=== PATIENT | male | born 1990 | race Caucasian/White ===

== ENCOUNTER 2024-06-14 08:59 | Emergency (ER) | payer OTHER, SELFPAY ==
--- NOTE | ~2024-06-14 | US_ITS ---
Duplex Sonography of the right extremity: Indication: Pain Findings: Sagittal and transverse B-mode images as well as color-flow imaging were performed on the r ight femoral and popliteal veins. B-mode examination was done without and with compression in the tr ansverse plane. There is good visualization of the common femoral, proximal profunda femoral, superf icial femoral, greater saphenous, and popliteal veins. Normal flow was seen on color-flow imaging. N ormal compressibility was demonstrated. Visualized calf veins are also patent. Impression: No evidence of deep vein thrombosis involving the right lower extremity. Reviewed, dictated and finalized at location M. IC TREATER Impression: No evidence of deep vein thrombosis involving the right lower extremity.
[2024-06-14 09:17] VITALS: BP 140/100; PULSE 82; RESP 20; TEMP 36.6; O2SAT 98
--- NOTE | 2024-06-14 10:32 | ED_ITS ---
HPI - General Adult General Chief complaint: Extremity Problem,Nontraumatic Stated complaint: thigh pain Time Seen by Provider: 06/14/24 09:19 History of Present Illness HPI narrative: patient 34-year-old gentleman who presents emergency department with chief complaint of right thigh pain. Patient reports that he has had no trauma reports no fever denies shortness of breath denies chest pain patient states that his father's had DVTs before the past and he is concerned that he may have a DVT Related Data Allergies Allergy/AdvReac Type Severity Reaction Status Date / Time No Known Drug Allergies Allergy Unknown Verified 06/14/24 09:24 Review of Systems Review of Systems: A 10 system review of systems was completed on the patient and is negative except for what is stated in the HPI. Nursing and ancillary documentation was reviewed. Exam Narrative: GENERAL: Well-appearing, well-nourished, and in no acute distress. HEAD: Normocephalic, atraumatic. EYES: PERRLA and EOMI. ENT: Nares clear, no rhinorrhea or epistaxis. Mucous membranes moist. NECK: Supple. CHEST: Clear to auscultation. No respiratory distress. HEART: Regular rate and rhythm. No murmur heard. Normal peripheral pulses. ABDOMEN: Soft, nontender, nondistended, normal active bowel sounds. EXTREMITIES: Normal range of motion. No edema. SKIN: Warm, dry, no rash. NEURO: No focal deficits. Alert and oriented x3. PSYCH: Normal mood and affect. Course Vital Signs Vital signs: Vital Signs Temperature 36.6 C 06/14/24 09:17 Pulse Rate 82 06/14/24 09:17 Respiratory Rate 20 06/14/24 09:17 Blood Pressure 140/100 H 06/14/24 09:17 Pulse Oximetry 98 06/14/24 09:17 Oxygen Delivery Room Air 06/14/24 09:17 Temperature 36.6 C 06/14/24 09:17 Pulse Rate 82 06/14/24 09:17 Respiratory Rate 20 06/14/24 09:17 Blood Pressure 140/100 H 06/14/24 09:17 Pulse Oximetry 98 06/14/24 09:17 Oxygen Delivery Room Air 06/14/24 09:17 Medical Decision Making [facility] Narrative Medical decision making narrative: differential diagnosis includes DVT, musculoskeletal pain ultrasound was obtained of the right lower extremity that showed no evidence of DVT Vital Signs Vital Signs: Vital Signs Temperature 36.6 C 06/14/24 09:17 Pulse Rate 82 06/14/24 09:17 Respiratory Rate 20 06/14/24 09:17 Blood Pressure 140/100 H 06/14/24 09:17 Pulse Oximetry 98 06/14/24 09:17 Oxygen Delivery Room Air 06/14/24 09:17 Temperature 36.6 C 06/14/24 09:17 Pulse Rate 82 06/14/24 09:17 Respiratory Rate 20 06/14/24 09:17 Blood Pressure 140/100 H 06/14/24 09:17 Pulse Oximetry 98 06/14/24 09:17 Oxygen Delivery Room Air 06/14/24 09:17 Discharge Plan Discharge Clinical Impression: Leg pain, right Patient Disposition: Home, Self-Care Condition: Stable Instructions: Antibiotic Form, Leg Pain (ED) Patient Language: Swedish Follow-up/Referrals: PHYSICIAN NOT ON STAFF,NONSTAFF [Primary Care Provider] - Time of Disposition: 10:33
[2024-06-14 10:45] VITALS: BP 145/87; PULSE 89; RESP 20; TEMP 36.7; O2SAT 99
--- OUTSIDE RECORDS SUMMARY | 2024-06-18 19:08 | XMS_ITS | Encounter Summary ---
Author Organization [facility] Address [facility]ly [facility] [place], [place] [address] [place] [address] Care Team Providers Care Rides Attendant Name Role Phone Jeet Hanley MD Primary Care Provider [phone] Encounter Details Date Type Department Care Team (Late st Contact Info) Description 09/12/2006 Emergency [facility] [place] [address] MD [address] [place] [address] [place] [address] Social History Tobacco Use Types Packs/Day Years Used Date Smoking Tobacco: Never Assessed Sex and Gender Information Value Date Recorded Sex Assigned at Not on file Legal Sex Male 8:34 PM CDT Gender Identity Not on file Sexual Orientation Not on file documented as of this encounter Plan of Treatment Not on file documented as of this encounter Visit Diagnoses Not on filedocumented in this encounter Care Teams Rides Attendant Relationship Specialty Start Date End Date Jeet Hanley MD [address] [facility] [address] [place] [id number] PCP - General 01/12/13 documented as of this encounter
--- OUTSIDE RECORDS SUMMARY | 2024-06-18 19:08 | XMS_ITS | Encounter Summary ---
Author Organization [facility] Address [address] [place] [address]. [place], [place] [address] [place] [address] Care Team Providers Care Mercerizing Range Feeder Name Role Phone Jeet Hanley MD Primary Care Provider [phone] Encounter Details Date Type Department Care Team (Late st Contact Info) Description 01/12/2013 Emergency [facility] [place] [address] Toñito Cedillo MD Social History Tobacco Use Types Packs/Day Years Used Date Smoking Tobacco: Never Assessed Sex and Gender Information Value Date Recorded Sex Assigned at Not on file Legal Sex Male 8:34 PM CDT Gender Identity Not on file Sexual Orientation Not on file documented as of this encounter Plan of Treatment Not on file documented as of this encounter Visit Diagnoses Diagnosis Open wound of forehead Open wound of forehead, without mention of complication documented in this encounter Care Teams Mercerizing Range Feeder Relationship Specialty Start Date End Date Jeet Hanley MD [address] [facility] [address] [place] [address] PCP - General 01/12/13 documented as of this encounter
--- OUTSIDE RECORDS SUMMARY | 2024-06-18 19:08 | XMS_ITS | Encounter Summary ---
Author Organization [facility] Address [address] [place] [address]. [place], [place] [id number] [place] [address] Care Team Providers Care Vice President Quality Improvement Name Role Phone Jeet Hanley MD Primary Care Provider [phone] Encounter Details Date Type Department Care Team (Late st Contact Info) Description 02/08/1991 Abstract [place] [address] , Generic ConversionMD Social History Tobacco Use Types Packs/Day Years [...] on filedocumented in this encounter Care Teams Vice President Quality Improvement Relationship Specialty Start Date End Date Jeet Hanley MD [address] [place] [address] PCP - General 01/12/13 documented as of this encounter
--- OUTSIDE RECORDS SUMMARY | 2024-06-18 19:08 | XMS_ITS | Clinical Summary ---
Author Organization [facility] Address [address] [place] [address]. [place] [address] Care Team Providers Care Service Technician Copier Name Role Phone Jeet Hanley MD Primary Care Provider [phone] Social History Tobacco Use Types Packs/Day Years Used Date Smoking Tobacco: Never Assessed Sex and Gender Information Value Date Recorded Sex Assigned at Not on file Legal Sex Male 8:34 PM CDT Gender Identity Not on file Sexual Orientation Not on file Plan of Treatment Health Maintenance Due Date Last Done Comments Annual Physical 02/20/1991 Hepatitis C 02/20/2006 DTaP, Tdap and Td Vaccines ( 1 - Tdap) 02/20/2007 Hepatitis B Vaccines (1 of 3 - 19+ 3-dose series) 02/20/2007 COVID-19 Vaccine (2023-2 5 season) 2024 Influenza Adult (#1) 2024 HPV Vaccines Aged Out No longer eligi ble based on patient's age to complete this topic Meningococcal Vaccine Aged Out No ericka adilene eligible based on patient's age to complete this topic Pneumococcal Vaccine: Pediat rics (0 to 5 Years) and At-Risk Patients (6 to 64 Years) Aged Out No longer eligible b ased on patient's age to complete this topic RSV Immunizations Under 20 Months Aged Out No longer eligible based on patient's age to complete this topic Care Teams Service Technician Copier Relationship Specialty Start Date End Date Jeet Hanley MD [address] [facility] [address] [place] [address] PCP - General 01/12/13
--- OUTSIDE RECORDS SUMMARY | 2024-06-18 19:08 | XMS_ITS | Encounter Summary ---
Author Organization [facility] Address [address] [place] [address]. [place] [address] Care Team Providers Care Embossing Unit Operator Name Role Phone Jeet Hanley MD Primary Care Provider [phone] Encounter Details Date Type Department Care Team (Latest Contact Info) Description 08/11/2019 Scan HEALTH INFO [facility] Scanned, Documents Social History Tobacco Use Types Packs/Day Years [...] on filedocumented in this encounter Care Teams Embossing Unit Operator Relationship Specialty Start Date End Date Jeet Hanley MD [address] [facility] [address] [place] [address] PCP - General 01/12/13 documented as of this encounter
--- OUTSIDE RECORDS SUMMARY | 2024-06-18 19:09 | XMS_ITS | Clinical Summary ---
Author Organization [facility] Address [address] [place] [address] Care Team Providers Care Aircraft Loadmaster Superintendent Name Role Phone Dorothea Cisneros Primary Care Provider + Allergies No known active allergies Medications omeprazole (PriLOSEC) 20 mg capsule Take 1 capsule (20 mg total) by mouth daily Active FLUoxetine (PROzac) 40 mg capsuleIndicati ons:Anxiety Take 1 capsule (40 mg total) by mouth daily 30 capsule 0 Active Additional Information Patient taking differently:40 mg oral Daily,2 capsules daily, Reported on 01/08/2023 propranoloL (INDERAL) 20 mg tablet Take 1 tablet (20 mg total) by mouth 2 (two) times a day 1 Active clonazePAM (KlonoPIN) 0.5 mg tablet TAKE 1/2 TABLET BY MOUTH ONCE A DAY NEEDED 1 Active prazosin (MINIPRESS) 2 mg capsule TAKE 3 CAPSULES BY MOUTH AT BEDTIME AND 1 CAPSULE EVERY MORNING 2 Active montelukast (SINGULAIR) 4 mg chewable tablet 1 tablet Orally Once a day AM Active busPIRone (BUSPAR) 30 mg tablet 1/2 in the morning, 1 tab in the afternoon, 1/2 at night 3 Active lamoTRIgine (LaMICtal) 200 mg tablet Take 1 tablet (200 mg total) by mouth daily 4 Active Active Problems Problem Noted Date Diagnosed Date Nasal lesion 02/12/2023 JULIA (obstructive sleep apnea) 10/24/2021 Assessment & Plan (01/24/2023 1:44 PM CDT): I have encouraged the patient to use his CPAP. I have given the patient a sample mask of the ResMed med in 20 nasal mask to try. The patient will call back in if he has any difficulties. Assessment & Plan (02/08/2022 2:17 PM CDT): Did inform the patient that if he has any difficulty adjusting to his CPAP to contact the office. Patient's DME is going to be [facility]. His CPAP will be set at a range of 5-20 cm water pressure. Assessment & Plan (10/24/2021 11:59 AM CDT): The patient returns with snoring, gasping episodes and excessive daytime hypersomnia. I will reorder the home sleep test to confirm the diagnosis and then order a CPAP unit for him. He will follow-up with me in 3 months. Alcohol dependence 07/23/2019 Essential hypertension 07/23/2019 Exercise-induced tachycardia 06/18/2019 Single episode of elevated blood pressure 2018 Anxiety 06/18/2019 Assessment & Plan (07/23/2019 12:28 PM EXTENSION SERVICE SUPERVISOR): Pt appears more calm than I've ever seen him. Apologetic for refraining to acknowledge his drinking issue. I increased his Buspar. He will stay on librium. No clonazepam unless he has a serious attack of anxiety. Continue counseling. I suggested he seek a 12 step program and he's open to this. No suicidal plans. Resolved Problems Problem Noted Date Diagnosed Date Resolved Date Congestion of paranasal sinus 07/23/2019 05/09/2021 Immunizations Name Administration Dates Next Due Influenza, Unspecified 03/31/2023(Deferr ed: Patient decision),03/31/2022,05/09/2021(Deferre d: Patient Refused),04/19/2020(Deferred: Patient Refused),06/19/2019(Deferred: Patient Refused) Pfizer SARS-CoV-2 Monovalent Vaccination (12+ Yrs) PURPLE 09/28/2020,09/07/2020 Surgical History Surgery Date Site/Laterality Comments NO PAST SURGERIES Medical History Medical History Date Comments GERD (gastroesophageal reflux disease) Anxiety Alcohol abuse 2009 Depression 2004 Hypertension 2019 Seizures (HCC) 2012 Sleep apnea Likely Substance abuse (CMS/HCC) (HCC) 2009 Peptic ulceration 2004 Dental disease Family History Medical History Relation Name Comments Diabetes Father Henry Hypertension Father Henry Allergies Mother Lupe Allergy (severe) Mother Lupe Depression Mother Lupe Hypertension Mother Lupe Anxiety disorder Sister 1 Depression Sister 2 Yumiko Relation Name Status Comments Brother Alive Father Henry Alive Mother Lupe Alive Sister 1 Alive Sister 2 Yumiko Social History Tobacco Use Types Packs/Day Years Used Date Smoking Tobacco: Every Day Cigarettes 0.5 15 Cigarillos Smokeless Tobacco: Never Tobacco Cessation:Ready to Q uit: Not Asked; Counseling Given: Not Answered Alcohol Use Standard Drinks/Week Comments Not Currently 2 (1 standard drink = 0.6 oz pur e alcohol) AUDIT-C Answer Date Recorded Q1: How often do you have a drink containing alc ohol? 2-3 times a week 05/09/2021 Q2: How many drinks containi ng alcohol do you have on a typical day when you are drinking? 3 or 4 05/09/2021 Q3: How often do you have si x or more drinks on one occasion? Never 05/09/2021 PHQ-2 Answer Date Recorded PHQ-2 Total Score (If total score is 3 or more points, staff should administer the PHQ-9) 6 11/15/2023 Personal Safety Answer Date Recorded Getting School Help Needed Not on file 08/31 Sex and Gender Information Value Date Recorded Sex Assigned at Not on file Legal Sex Male 6:48 PM EXTENSION SERVICE SUPERVISOR Gender Identity Male 07/21/2019 1:21 AM EXTENSION SERVICE SUPERVISOR Sexual Orientation Meléndez 07/21/2019 1: 21 AM EXTENSION SERVICE SUPERVISOR Obstetrics History Last Filed Vital Signs Vital Sign Reading Time Taken Comments Blood Pressure 136/84 11/15/2023 10:44 AM CDT Pulse 81 11/15/2023 10:44 AM CDT Temperature 36.5 ??C (97.7 ??F) 11/15/2023 1 0:44 AM CDT Respiratory Rate 18 11/15/2023 10:4 4 AM CDT Oxygen Saturation 97% 11/15/2023 10: 44 AM CDT Inhaled Oxygen Concentration - - Weight 124.9 kg (275 lb 6.4 oz) 024 10:44 AM CDT Height 165.1 cm (5' 5 ) 11/15/2023 10:4 4 AM CDT Body Mass Index 45.83 11/15/2023 10:44 AM CDT Plan of Treatment Health Maintenance Due Date Last Done Comments Hepatitis C Screening 1988 Pneumococcal vaccine <65 (1 of 2 - PCV) 02/20/1994 DTaP/Tdap/Td Vaccine (1 - Tdap) 02/20/1999 Varicella Vaccines (1 of 2 - 13+ 2-dose series) 02/20/2001 Hepatitis B Screening 02/20/2006 Regular Well Visit/Exam 18-64 02/20/2006 Covid-19 Vaccine (2023- season) 2024 09/28/2020, 09/07/2020 Influenza Vaccine (#1) 2024 03/31/2022 Depression Screening 11/14/2024 11/15/2023, 11/15/2023, 01/08/2023, Additional history exists HPV Vaccines Aged Out No longer eligi ble based on patient's age to complete this topic Insurance [facility] Care Teams Aircraft Loadmaster Superintendent Relationship Specialty Start Date End Date Dorothea Cisneros PA [address] [place] [address] PCP - General 08/11/19
--- OUTSIDE RECORDS SUMMARY | 2024-06-18 19:09 | XMS_ITS | Encounter Summary ---
Author Organization [facility] Healthcare Address [address] [place] [address] Care Team Providers Care Systems Applications Programming Lead Name Role Phone Dorothea Cisneros Primary Care Provider + Reason for Visit * Reason Comments Leg Pain Had head and neck pa in a week ago, now having bilateral leg numbness Encounter Details Date Type Department Care Team (Late st Contact Info) Description 11/15/2023 10:45 AM CDT Office Visit [facility] Family Medicine [address] [phone] Dorothea Cisneros PA [address] [place] [phone] Numbness and tingling of both feet (Primary Dx); Morbid obesity with BMI of 45.0-49.9, adult (HCC); Family history of diabetes mellitus in father Social History Tobacco Use Types Packs/Day Years [...] on file Legal Sex Male 6:48 PM NEWSCAST DIRECTOR Gender Identity Male 07/21/2019 1:21 AM NEWSCAST DIRECTOR Sexual Orientation Meléndez 07/21/2019 1: 21 AM NEWSCAST DIRECTOR documented as of this encounter Last Filed Vital Signs Vital Sign Reading [...] Mass Index 45.83 11/15/2023 10:44 AM CDT documented in this encounter Progress Notes * Dorothea Cisneros PA - 11/15/2023 10:45 AM CDT Images from the original note were not included. Subjective/Objective Visit date: 11/15/2023 Patient ID: [id number] Osborne is a 33 y.o. male. Chief Complaint Chief Complaint Patient presents with Leg Pain Had head and neck pain a week ago, now having bilateral leg numbness Current Outpatient Medications: busPIRone (BUSPAR) 30 mg tablet, 1/2 in the morning, 1 tab in the afternoon, 1/2 at night, Disp: , Rfl: clonazePAM (KlonoPIN) 0.5 mg tablet, TAKE 1/2 TABLET BY MOUTH ONCE A DAY NEEDED, Disp: , Rfl: FLUoxetine (PROzac) 40 mg capsule, Take 1 capsule (40 mg total) by mouth daily (Patient taking differently: Take 1 capsule (40 mg total) by mouth daily 2 capsules daily), Disp: 30 capsule, Rfl: 0 lamoTRIgine (LaMICtal) 200 mg tablet, Take 1 tablet (200 mg total) by mouth daily, Disp: , Rfl: montelukast (SINGULAIR) 4 mg chewable tablet, 1 tablet Orally Once a day AM, Disp: , Rfl: omeprazole (PriLOSEC) 20 mg capsule, Take 1 capsule (20 mg total) by mouth daily, Disp: , Rfl: prazosin (MINIPRESS) 2 mg capsule, TAKE 3 CAPSULES BY MOUTH AT BEDTIME AND 1 CAPSULE EVERY MORNING,Disp: , Rfl: propranoloL (INDERAL) 20 mg tablet, Take 1 tablet (20 mg total) by mouth 2 (two) times a day, Disp:, Rfl: No Known Allergies HPI Not employed for several years and applying for disability. Sees psychiatrist and a counselor. 2 weeks h/o with one day of a [place] followed by neck pain not out of the ordinary for me . Uses creams on it which usually helps. Didn't really loosen up until he could barely turn his neck, followed by ST and went to who wanted him to go to ER and get labs, worried about meningitis. He went home and the next day felt better and gradually this resolved but legs are falling asleep , worse on the left foot, RT thigh and RT foot. Right now they only feel a little numb . Neck ROM is normal now. No issues with walking. No UE numbness, tingling. [place]STON has resolved. He feels like his anxiety is mainly under control. Takes potassium, MG and fish oil. Has chronic fatigue. No tongue pain, lip tingling. No SOB. No legweakness noted. Drinks ETOH daily, beers 3 daily. Unable to tolerate CPAP b/c it triggers his anxiety. PHQ Screening Over the last 2 weeks, how often have you been bothered by any of the following problems? Little Interest or Pleasure in Doing Things: Nearly every day Feeling Down, Depressed, or Hopeless: Nearly every day PHQ-2 Total Score (If total score is 3 or more points, staff should administer the PHQ-9): 6 Over the past 2 weeks, how often have you been bothered by any of the following problems? Little Interest or Pleasure in Doing Things: Nearly every day Feeling Down, Depressed, or Hopeless: Nearly every day PHQ-2 Total Score (If total score is 3 or more points, staff should administer the PHQ-9): 6 Trouble Falling or Staying Asleep, or Sleeping too Much: Nearly every day Feeling Tired or Having Little Energy: Nearly every day Poor Appetite or Overeating: Nearly every day Feeling Bad About Yourself - or That You are a Failure or Have Let Yourself or Your Family Down: Nearly every day Trouble Concentrating on Things, Such as Reading the Newspaper or Watching Television: Nearly everyday Moving or Speaking so Slowly That Other People Could Have Noticed, or the Opposite - Being so Fidgety or Restless That You Have Been Moving Around a lot More Than Usual: Not at all Thoughts That You Would be Better off , or of Hurting Yourself in Some Way: Not at all PHQ-9 Total Score: 21 Review of Systems Constitutional: Positive for fatigue (chronic). Negative for fever. HENT: Positive for sore throat (now resolved). Negative for mouth sores. Respiratory: Negative for shortness of breath. Cardiovascular: Negative for leg swelling. Musculoskeletal: Positive for neck pain (seeHPI, now resolved). Skin: Negative for rash. Neurological: Positive for numbness (see HPI) and headaches (see HPI, now resolved). Negative for weakness. Psychiatric/Behavioral: Positive for sleep disturbance (unable to tolerate CPAP). The patient is nervous/anxious (managed by psych, has agoraphobia, unable to work, drive). Vitals BP 136/84 (BP Location: Right arm, Patient Position: Sitting) Pulse 81 Temp 36.5 ??C (97.7 ??F) (Temporal) Resp 18 Ht 165.1 cm (5' 5 ) Wt 124.9 kg (275 lb 6.4 oz) SpO2 97% BMI 45.83 kg/m?? Lab Results Component Value Date HGBA1C 5.4 11/15/2023 Physical Exam Constitutional: Appearance: Normal appearance. He is morbidly obese. HENT: Head: Normocephalic and atraumatic. Eyes: Conjunctiva/sclera: Conjunctivae normal. Cardiovascular: Rate and Rhythm: Normal rate and regular rhythm. Pulses: Normal pulses. Heart sounds: Normal heart sounds. Pulmonary: Effort: Pulmonary effort is normal. Breath sounds: Normal breath sounds. Musculoskeletal: Cervical back: Normal range of motion. Right lower leg: No edema. Left lower leg: No edema. Lymphadenopathy: Cervical: No cervical adenopathy. Skin: Findings: No rash. Neurological: Mental Status: He is alert and oriented to person, place, and time. Motor: No weakness. Gait: Gait normal. Deep Tendon Reflexes: Reflexes normal. Psychiatric: Mood and Affect: Mood normal. Behavior: Behavior normal. Diagnoses and all orders for this visit: Numbness and tingling of both feet (Primary) Comments: A1C normal. pt unable to tolerate phlebotomy due to syncope and seizures . start B12, back off on ETOH intake, get more exercise, monitor Morbid obesity with BMI of 45.0-49.9, adult (HCC) Comments: pt would benefit from healthy diet, routine exercise. he has trouble leaving his house due to agoraphobia Family history of diabetes mellitus in father Comments: normal A1C, unlikely to be factor in paresthesias Orders: - POCT hemoglobin A1c Return if symptoms worsen or fail to improve. TESFAYE VillatoroC documented in this encounter Plan of Treatment Not on file documented as of this encounter Procedures Procedure Name Priority Date/Time Associated Diagnosis Comments POCT HEMOGLOBIN A1C Routine 11/15/2023 1 1:13 AM CDT Family history of diabetes mellitus in father documented in this encounter Results * POCT hemoglobin A1c (11/15/2023 11:13 AM CDT) Hemoglobin A1C, POC 5.4 % Blood 11/15/2023 11:1 3 AM CDT Dorothea Manzo POINT OF CARE TEST ORDER STANLEY Final Result documented in this encounter Visit Diagnoses Diagnosis Numbness and tingling of both feet- Primary Morbid obesity with BMI of 45.0-49.9, adult (HCC) Family history of diabetes mellitus in father documented in this encounter Discontinued Medications Medication Sig Discontinue Reason Start Date End Da te varenicline tartrate (CHANTIX) 1 mg tablet TAKE 1 TABLET(1 MG) BY MOUTH TWICE DAILY WITH FULL GLASS OF WATER Therapy completed 10/09/2023 11/15/2023 semaglutide (Wegovy) 0.25 mg/0.5 mL auto-injector Inject 0.5 mL (0.25 mg total) under the skin every 7 days Therapy completed 02/15/2023 11/15/2023 pramipexole (MIRAPEX) 0.5 mg tablet Take 1 tablet (0.5 mg total) by mouth nightly at bedtime. Therapy completed 10/15/2021 11/15/2023 mirtazapine (REMERON) 15 mg tablet Take by mouth nightly Therapy completed 10/15/2021 11/15/2023 Lunesta 1 mg tablet Take 1 tablet (1 mg total) by mouth nightly Therapy completed 12/12/2022 11/15/2023 lamoTRIgine (LaMICtal) 100 mg tablet Take 1 tablet (100 mg total) by mouth daily Cost of medication 10/15/2020 11/15/2023 documented as of this encounter Care Teams Systems Applications Programming Lead Relationship Specialty Start Date End Date Dorothea Cisneros PA [address] [facility] [address] [address] PCP - General 08/11/19 documented as of this encounter
--- OUTSIDE RECORDS SUMMARY | 2024-06-18 19:09 | XMS_ITS | Encounter Summary ---
Author Organization [facility] Healthcare Address [address] [place] [address] Care Team Providers Care Salvage Machine Operator Name Role Phone Dorothea Cisneros Primary Care Provider + Encounter Details Date Type Department Care Team (Latest Contact Info) Description 11/03/2023 7:17 PM CDT - 11/03/2023 11:59 PM CDT Hospital Encounter [address] [address] Sore throat Discharge Disposition: Discharge to home or self care Social History Tobacco Use Types Packs/Day Years Used Date Smoking Tobacco: Every Day Cigarettes 0.5 15 Cigarillos Smokeless Tobacco: Never Alcohol Use Standard Drinks/Week Comments Not Currently [...] points, staff should administer the PHQ-9) 6 01/08/2023 Personal Safety Answer Date Recorded Getting School Help Needed Not on file 08/31 Sex and Gender Information Value Date Recorded Sex Assigned at Not on file Legal Sex Male 6:48 PM MORTGAGE LOAN ASSISTANT Gender Identity Male 07/21/2019 1:21 AM MORTGAGE LOAN ASSISTANT Sexual Orientation Meléndez 07/21/2019 1: 21 AM MORTGAGE LOAN ASSISTANT documented as of this encounter Medications at Time of Discharge busPIRone (BUSPAR) 30 mg tablet 1/2 in the morning, 1 tab in the afternoon, 1/2 at night 01/16/2023 clonazePAM (KlonoPIN) 0.5 mg tablet TAKE 1/2 TABLET BY MOUTH ONCE A DAY NEEDED 10/10/2020 FLUoxetine (PROzac) 40 mg capsuleIndicatio ns:Anxiety Take 1 capsule (40 mg total) by mouth daily 30 capsule 09/12/2019 lamoTRIgine (LaMICtal) 200 mg tablet Take 1 tablet (200 mg total) by mouth daily 10/06/2023 montelukast (SINGULAIR) 4 mg chewable tablet 1 tablet Orally Once a day AM omeprazole (PriLOSEC) 20 mg capsule Take 1 capsule (20 mg total) by mouth daily prazosin (MINIPRESS) 2 mg capsule TAKE 3 CAPSULES BY MOUTH AT BEDTIME AND 1 CAPSULE EVERY MORNING 10/15/2021 propranoloL (INDERAL) 20 mg tablet Take 1 tablet (20 mg total) by mouth 2 (two) times a day 10/15/2020 lamoTRIgine (LaMICtal) 100 mg tablet Take 1 tablet (100 mg total) by mouth daily 10/15/2020 11/15/2023 Lunesta 1 mg tablet Take 1 tablet (1 mg total) by mouth nightly 12/12/2022 11/15/2023 mirtazapine (REMERON) 15 mg tablet Take by mouth nightly 10/15/2021 11/15/2023 pramipexole (MIRAPEX) 0.5 mg tablet Take 1 tablet (0.5 mg total) by mouth nightly at bedtime. 10/15/2021 11/15/2023 semaglutide (Wegovy) 0.25 mg/0.5 mL auto-injector Inject 0.5 mL (0.25 mg total) under the skin every 7 days 2 mL 1 02/15/2023 11/15/2023 varenicline tartrate (CHANTIX) 1 mg tablet TAKE 1 TABLET(1 MG) BY MOUTH TWICE DAILY WITH FULL GLASS OF WATER 60 tablet 1 10/09/2023 11/15/2023 documented as of this encounter Discharge Disposition Disposition Code Departure Means Destination Discharge to home or self care documented in this encounter Plan of Treatment Not on file documented as of this encounter Procedures Procedure Name Priority Date/Time Associated Diagnosis Comments THROAT CULTURE Routine 11/03/2023 3:48 PM CDT Sore throat documented in this encounter Results * Throat culture Throat (11/03/2023 3:48 PM CDT) Report Final Report: No growth of pathogens. Comment:Testing performed by : [facility], [address] [place]., [address] Throat 11/03/2023 3:48 PM CDT 11/04/2023 3:04 AM CDT Narrative VALORIE BINGHAM - 11/05/2023 7:41 AM CDT Testing performed by [facility] ([phone]). Maty Quintero NP LAB MICROBIOLOGY - GENERAL GUNJAN MELÉNDEZ Final Result VALORIE [id number] Department [place] [address] documented in this encounter Visit Diagnoses Diagnosis Sore throat Acute pharyngitis documented in this encounter Care Teams Salvage Machine Operator Relationship Specialty Start Date End Date Dorothea Cisneros PA [address] [facility] [facility] [address] [place] [address] [place] [id number] PCP - General 08/11/19 documented as of this encounter
--- OUTSIDE RECORDS SUMMARY | 2024-06-18 19:09 | XMS_ITS | Referral Summary ---
Author Organization [facility] Address [address] [place] [address] Care Team Providers Care Venue Coordinator Name Role Phone Dorothea Cisneros Primary Care [...] 06/18/2019 Assessment & Plan (07/23/2019 12:[address] [employer]AY): Pt appears more calm than I've ever [...] SARS-CoV-2 Monovalent Vaccination (12+ Yrs) PURPLE 09/28/2020,09/07/2020 Social History Tobacco Use Types Packs/Day Years [...] on file Legal Sex Male 6:[address] [employer] Gender Identity Male 07/21/2019 1:[address] [employer] Sexual Orientation Meléndez 07/21/2019 1: [address] [employer] Last Filed Vital Signs Vital Sign Reading [...] 11/15/2023 10:44 AM CDT Plan of Treatment Not on file Insurance [facility] Care Teams Venue Coordinator Relationship Specialty Start Date End Date Dorothea Cisneros PA [address] [facility] [place] [address] [facility] - General 08/11/19
--- OUTSIDE RECORDS SUMMARY | 2024-06-18 19:10 | XMS_ITS | Encounter Summary ---
Author Organization [facility] Address [address] [facility] [address] [place] [id number] Care Team Providers Care Endocrinology Nurse Name Role Phone Dorothea Cisneros Primary Care Provider + Reason for Visit * Reason Onset Date Comments Appointment 10/17/2021 Encounter Details Date Type Department Care Team (Late st Contact Info) Description 10/17/2021 Telephone [facility] [address] [phone] Camille Mckeon MA Appointment Social History Tobacco Use Types Packs/Day Years Used Date Smoking Tobacco: Some Days Cigarettes Cigarillos Smokeless Tobacco: Never Alcohol Use Standard [...] PHQ-2 Answer Date Recorded PHQ-2 Total Score 6 05/09/2021 Sex and Gender Information Value Date Recorded Sex Assigned at Not on file Legal Sex Male 6:48 PM SUPERVISOR WET ROOM Gender Identity Male 07/21/2019 1:21 AM SUPERVISOR WET ROOM Sexual Orientation Meléndez 07/21/2019 1: 21 AM SUPERVISOR WET ROOM documented as of this encounter Miscellaneous Notes * Telephone Encounter - Camille Mckeon MA - 10/17/2021 10:25 AM CDT Left VM for patient to bring chip from cpap machine to appt. documented in this encounter Plan of Treatment Not on file documented as of this encounter Visit Diagnoses Not on filedocumented in this encounter Care Teams Endocrinology Nurse Relationship Specialty Start Date End Date Dorothea Cisneros PA [address] [facility] [address] [address] PCP - General 08/11/19 documented as of this encounter
--- OUTSIDE RECORDS SUMMARY | 2024-06-18 19:10 | XMS_ITS | Encounter Summary ---
Author Organization [facility] Address [address] [facility] [address] [place] [address] Care Team Providers Care Oil Well Directional Surveyor Name Role Phone Dorothea Cisneros Primary Care Provider + Reason for Referral * Diagnostic Imaging (Routine) - Closed Specialty Diagnoses / Procedures Referred By Susana narayanan Referred To Contact Diagnoses Right foot pain Procedures XR Foot Right 3+ Vw Dorothea Cisneros PA [facility] [address] [place] [address] [place] [id number] Phone: tel: fax: [facility] [address] [place] [phone] Referral ID Status Reason Start Date Expiration Date Visits Re quested Visits Authorized [id number] Closed 05/09/2021 06/08/2022 1 1 DING CONSTRUCTION ESTIMATOR Reason for Visit * Reason Comments nodue in left arm that has grown Foot Pain right Encounter Details Date Type Department Care Team (Late st Contact Info) Description 05/09/2021 11:15 AM BUILDING CONSTRUCTION ESTIMATOR Office Visit [facility] Family Medicine [address] [facility] [address] [place] [address] Dorothea Cisneros PA [facility] [address] [place] [address] Right foot pain (Primary Dx); Subcutaneous nodule of left upper extremity Social History Tobacco Use Types Packs/Day Years [...] on file Legal Sex Male 6:48 PM BUILDING CONSTRUCTION ESTIMATOR Gender Identity Male 07/21/2019 1:21 AM BUILDING CONSTRUCTION ESTIMATOR Sexual Orientation Meléndez 07/21/2019 1: 21 AM BUILDING CONSTRUCTION ESTIMATOR documented as of this encounter Last Filed Vital Signs Vital Sign Reading Time Taken Comments Blood Pressure 122/84 05/09/2021 11:24 AM BUILDING CONSTRUCTION ESTIMATOR Pulse 76 05/09/2021 11:24 AM BUILDING CONSTRUCTION ESTIMATOR Temperature 36.1 ??C (97 ??F) 05/09/2021 11: 24 AM BUILDING CONSTRUCTION ESTIMATOR Respiratory Rate 18 05/09/2021 11:2 4 AM BUILDING CONSTRUCTION ESTIMATOR Oxygen Saturation 96% 05/09/2021 11: 24 AM BUILDING CONSTRUCTION ESTIMATOR Inhaled Oxygen Concentration - - Weight 130.7 kg (288 lb 3.2 oz) 021 11:24 AM BUILDING CONSTRUCTION ESTIMATOR Height 167.6 cm (5' 5.98 ) 05/09/2021 1 1:24 AM BUILDING CONSTRUCTION ESTIMATOR Body Mass Index 46.54 05/09/2021 11:24 AM BUILDING CONSTRUCTION ESTIMATOR documented in this encounter Progress Notes * Dorothea Cisneros PA - 05/09/2021 11:15 AM CST Images from the original note were not included. Subjective/Objective Visit date: 05/09/2021 Patient ID: Lee Osborne is a 31 y.o. male. Chief Complaint Chief Complaint Patient presents with ??? nodue in left arm that has grown ??? Foot Pain right Current Outpatient Medications: ??? busPIRone (BUSPAR) 15 mg tablet, TAKE 1 TABLET(15 MG) BY MOUTH THREE TIMES DAILY (Patient taking differently: 1 tab in the am, 2 in the afternoon and 1 at night), Disp: 90 tablet, Rfl: 2 ??? clonazePAM (KlonoPIN) 0.5 mg tablet, TAKE 1/2 TABLET BY MOUTH ONCE A DAY NEEDED, Disp: , Rfl: ??? FLUoxetine (PROzac) 40 mg capsule, Take 1 capsule (40 mg total) by mouth daily (Patient taking differently: Take 40 mg by mouth daily 2 capsules daily), Disp: 30 capsule, Rfl: 0 ??? lamoTRIgine (LaMICtal) 100 mg tablet, Take 100 mg by mouth daily 100 mg in the am and 50 mg in the afternoon, Disp: , Rfl: ??? omeprazole (PriLOSEC) 20 mg capsule, Take 20 mg by mouth daily, Disp: , Rfl: ??? pramipexole (MIRAPEX) 0.25 mg tablet, Take 0.25 mg by mouth nightly at bedtime., Disp: , Rfl: ??? prazosin (MINIPRESS) 1 mg capsule, 1 in the am and 3 at night, Disp: , Rfl: ??? propranoloL (INDERAL) 20 mg tablet, Take 20 mg by mouth 2 (two) times a day, Disp: , Rfl: ??? traZODone (DESYREL) 50 mg tablet, Take 50 mg by mouth nightly at bedtime., Disp: , Rfl: No Known Allergies HPI Right foot ongoing and states he has brought this up in the past and thinks it's been a year now.Thinks he was referred to PT at the time but had so much anxiety he couldn't be around people. Painis over the top of the foot and extends to front of ankle . Driving a car really bothers it. Has restless legs at night and this seems to make it more noticeable. Can't exercise and at times it pulsates . Has bad nightmares and he's even fallen out of bed; wonders if he actually kicked something at one point. Thinks he walks crooked b/c of scoliosis and favors this foot. No swelling. Nodule upper left arm; Noted around May 2019 and brought it up to another provider at his 06/19/19. It was believed to be a cyst or fatty tumor; then he thinks it was pea sized and now he feels it's much bigger. There is no pain but it is uncomfortable with touch. He's very anxious and feels physically ill when he thinks about it. PHQ Screening Over the last 2 weeks, [...] Moving Around a lot More Than Usual: Several days Thoughts That You Would be Better off , or of Hurting Yourself in Some Way: Several days PHQ-9 Total Score: 17 If you checked off any problems, how difficult have these problems made it for you to do your work,take care of things at home, or get along with other people?: Extremely dIfficult Review of Systems Constitutional: Negative for fever. Respiratory: Negative for cough and shortness of breath. Musculoskeletal: Positive for arthralgias (right foot: see HPI). Negative for joint swelling. Skin: Nodule left upper arm: see HPI Neurological: Negative for numbness. Psychiatric/Behavioral: The patient is nervous/anxious (see HPI). Vitals BP 122/84 (BP Location: Left arm, Patient Position: Sitting) Pulse 76 Temp 36.1 ??C (97 ??F) (Temporal) Resp 18 Ht 167.6 cm (5' 5.98 ) Wt 130.7 kg (288 lb 3.2 oz) SpO2 96% BMI 46.54 kg/m?? Physical Exam Constitutional: General: He is not in acute distress. Appearance: Normal appearance. He is obese. Cardiovascular: Rate and Rhythm: Normal rate. Pulmonary: Effort: Pulmonary effort is normal. Musculoskeletal: Right lower leg: No edema. Left lower leg: No edema. Right foot: Normal range of motion. Bony tenderness (dorsally near ankle mortise) present. No swelling or deformity. Normal pulse. Comments: Some pain with eversion of ankle Skin: Comments: There is a 1cm subcutaneous nodule in upper arm above olecranon. It is NTTP, soft, round Neurological: Mental Status: He is alert and oriented to person, place, and time. Gait: Gait normal. Psychiatric: Mood and Affect: Mood normal. Behavior: Behavior normal. Diagnoses and all orders for this visit: Right foot pain (Primary) Comments: nonspecific exam. no deformity, pain of long duration. check xrays, referral to podiatry Orders: - XR Foot Right 3+ Vw; Future - Ambulatory referral to Podiatry; Future Subcutaneous nodule of left upper extremity Comments: this is only 1cm, feels lipomatous, round. pt advised to continue to observe and reassured no concerning features present. Return if symptoms worsen or fail to improve. Dorothea Cisneros PA-C DING CONSTRUCTION ESTIMATOR documented in this encounter Plan of Treatment Not on file documented as of this encounter Results * XR Foot Right 3+ Vw (05/16/2021 1:21 PM BUILDING CONSTRUCTION ESTIMATOR) Anatomical Region Laterality Modality Lower Extremities, Foot Right Computed Radiography 05/16/2021 4:32 PM BUILDING CONSTRUCTION ESTIMATOR Narrative 05/16/2021 4:33 PM BUILDING CONSTRUCTION ESTIMATOR EXAM DESCRIPTION: ?XR FOOT RIGHT 3 OR MORE VIEWS REASON FOR STUDY: ?? pain ??Ongoing pain x 2 yrs. Pain, cramping. No hx gout, surgery, injury, plantar fasciitis. PCP referring to podiatry who wants imaging. ?? TECHNIQUE: ?? AP, lateral and oblique radiographic views acquired of the right foot. COMPARISON: ?? None FINDINGS: There is no definite evidence of acute fracture or dislocation involving the right foot. ??There is a well corticated osseous fragment noted at the medial base of the right 1st digit distal phalanx, which is likely sequela of prior injury/trauma versus developmental changes. ??There are tiny calcaneal enthesophytes noted at the insertion of the Achilles and plantar tendons. ?? There is mild soft tissue swelling. IMPRESSION: ?? 1. ??Mild soft tissue swelling involving the right foot without definite evidence of acute displaced fracture or dislocation. THIS IS AN ELECTRONICALLY VERIFIED FINAL REPORT 05/16/2021 4:33 PM - Electronically signed by Emory Whitney D.O. PS: PS D: ??05/16/2021 4:33 PM T: ??05/16/2021 4:33 PM Report ID: [id number] Reading Location: ??[id number] Procedure Note Emory Whitney, DO - 05/16/2021 EXAM DESCRIPTION: XR FOOT RIGHT 3 OR MORE VIEWS REASON FOR STUDY: pain Ongoing pain x 2 yrs. Pain, cramping. No hxgout, surgery, injury, plantar fasciitis. PCP referring to podiatry who wants imaging. TECHNIQUE: AP, lateral and oblique radiographic views acquired of theright foot. COMPARISON: None FINDINGS: There is no definite evidence of acute fracture or dislocation involvingthe right foot. There is a well corticated osseous fragment noted at themedial base of the right 1st digit distal phalanx, which is likely sequela ofprior injury/trauma versus developmental changes. There are tiny calcaneal enthesophytes noted at the insertion of the Achilles and plantar tendons. There is mild soft tissue swelling. IMPRESSION: 1. Mild soft tissue swelling involving the right foot without definite evidence of acute displaced fracture or dislocation. THIS IS AN ELECTRONICALLY VERIFIED FINAL REPORT 05/16/2021 4:33 PM - Electronically signed by Emory Whitney D.O. PS: PS Report ID: [id number] Reading Location: [id number] Dorothea Manzo IMG XR PROCEDURES Final Result documented in this encounter Visit Diagnoses Diagnosis Right foot pain- Primary Pain in soft tissues of limb Subcutaneous nodule of left upper extremity Right foot pain Pain in soft tissues of limb documented in this encounter Discontinued Medications Medication Sig Discontinue Reason Start Date End Da te naproxen (NAPROSYN) 500 mg tabletIndications:Right wrist pain,Acute right ankle pain TAKE 1 TABLET(500 MG) BY MOUTH TWICE DAILY WITH MEALS 11/21/2020 05/09/2021 gabapentin (NEURONTIN) 800 mg tablet Take 800 mg by mouth nightly 10/15/2020 05/09/2021 documented as of this encounter Historical Medications * This list may reflect changes made after this encounter. pramipexole (MIRAPEX) 0.25 mg tablet Take 0.25 mg by mouth nightly at bedtime. 04/12/2021 10/24/2021 added in this encounter Care Teams Oil Well Directional Surveyor Relationship Specialty Start Date End Date Dorothea Cisneros PA [address] [facility] [facility] [address] [place] [address] [place] [id number] PCP - General 08/11/19 documented as of this encounter
--- OUTSIDE RECORDS SUMMARY | 2024-06-18 19:10 | XMS_ITS | Encounter Summary ---
Author Organization [facility] Address [address] [facility] [address] [place] [address] Care Team Providers Care Inspector Barrel Name Role Phone Dorothea Cisneros Primary Care Provider + Reason for Visit * Reason Comments Nicotine Dependence Obesity Encounter Details Date Type Department Care Team (Late st Contact Info) Description 02/15/2023 10:45 AM CDT Telemedicine [facility] Family Medicine [address] [facility] [address] [place] [address] Dorothea Cisneros PA [address] [place] [address] [address] [place] [address] Cigarette nicotine dependence without complication (Primary Dx); Encounter for weight management Social History Tobacco Use Types Packs/Day Years [...] staff should administer the PHQ-9) 6 01/08/2023 Sex and Gender Information Value Date Recorded Sex Assigned at Not on file Legal Sex Male 6:48 PM MARGARINE CHURN OPERATOR Gender Identity Male 07/21/2019 1:21 AM MARGARINE CHURN OPERATOR Sexual Orientation Meléndez 07/21/2019 1: 21 AM MARGARINE CHURN OPERATOR documented as of this encounter Last Filed Vital Signs Vital Sign Reading Time Taken Comments Blood Pressure - - Pulse - - Temperature - - Respiratory Rate - - Oxygen Saturation - - Inhaled Oxygen Concentration - - Weight 120.2 kg (265 lb) 02/15/2023 10:43 AM CDT Per pt Height 165.1 cm (5' 5 ) 02/15/2023 10:43 AM CDT Body Mass Index 44.1 02/15/2023 10:43 AM CDT documented in this encounter Ordered Prescriptions Prescription Sig Dispense Quantity Refills Last Filled Start Date End Date semaglutide (Wegovy) 0.25 mg/0.5 mL auto-injector Inject 0.5 mL (0.25 mg total) under the skin every 7 days 2 mL 1 02/15/2023 4 varenicline tartrate (CHANTIX WALKER) 0.5 mg (11)- 1 mg (42) tablet Use as directed on package instructions, try to quit smoking after 1 week. 53 tablet 02/15/2023 3 documented in this encounter Progress Notes * Dorothea Cisneros PA - 02/15/2023 10:45 AM CDT Images from the original note were not included. This was a telemedicine visit with Lee Osborne alone which took place via real-time video connection. During the visit, I was located in the office and the patient was located at home in the [facility]. The patient visit started at 10:48 and ended at 10:58. My total encounter time on 02/15/2023 was 10 minutes which was spent in the activities documented in the note. This includes time spent prior to the visit and after the visit in direct care of the patient. This time does not include time spent in any separately reportable services. I have explained the option of participating in a telemedicine visit to the patient. After being given an opportunity to ask questions about and discuss this type of visit, the patient verbally consented to proceeding with the telemedicine visit. The patient understands that this service replaces an office visit and they may be billed and/or responsible for any applicable copayments. Subjective/Objective Visit date: 02/15/2023 Patient ID: Lee Osborne is a 32 y.o. male. Chief Complaint Chief Complaint Patient presents with Nicotine Dependence Obesity Current Outpatient Medications: busPIRone (BUSPAR) 30 mg tablet, 1/2 in the morning, 1 tab in the afternoon, 1/2 at night, Disp: , Rfl: clonazePAM (KlonoPIN) 0.5 mg tablet, TAKE 1/2 TABLET BY MOUTH ONCE A DAY NEEDED, Disp: , Rfl: lamoTRIgine (LaMICtal) 100 mg tablet, Take 1 tablet (100 mg total) by mouth daily, Disp: , Rfl: Lunesta 1 mg tablet, Take 1 tablet (1 mg total) by mouth nightly, Disp: , Rfl: mirtazapine (REMERON) 15 mg tablet, Take by mouth nightly, Disp: , Rfl: montelukast (SINGULAIR) 4 mg chewable tablet, 1 tablet Orally Once a day AM, Disp: , Rfl: omeprazole (PriLOSEC) 20 mg capsule, Take 1 capsule (20 mg total) by mouth daily, Disp: , Rfl: pramipexole (MIRAPEX) 0.5 mg tablet, Take 1 tablet (0.5 mg total) by mouth nightly at bedtime., Disp: , Rfl: prazosin (MINIPRESS) 2 mg capsule, TAKE 3 CAPSULES BY MOUTH AT BEDTIME AND 1 CAPSULE EVERY MORNING,Disp: , Rfl: propranoloL (INDERAL) 20 mg tablet, Take 1 tablet (20 mg total) by mouth 2 (two) times a day, Disp:, Rfl: FLUoxetine (PROzac) 40 mg capsule, Take 1 capsule (40 mg total) by mouth daily (Patient taking differently: Take 1 capsule (40 mg total) by mouth daily 2 capsules daily), Disp: 30 capsule, Rfl: 0 semaglutide (Wegovy) 0.25 mg/0.5 mL auto-injector, Inject 0.5 mL (0.25 mg total) under the skin every 7 days, Disp: 2 mL, Rfl: 1 varenicline tartrate (CHANTIX WALKER) 0.5 mg (11)- 1 mg (42) tablet, Use as directed on package instructions, try to quit smoking after 1 week., Disp: 53 tablet, Rfl: 0 No Known Allergies Nicotine Dependence His urge triggers include company of smokers. Trying to lose weight and stop smoking. Has tried chantix in the past and doesn't recall who prescribed it. He feels it did help and he was able to stop for a couple mos. Smokes 1/2 PPD. Has tried patches in the past but sweats too much. Interested in trying wegovy. Admits to no routine exercise. Doesn't leave house much due to anxiety. Is trying to get his CPAP issue corrected and knows that his weight is a big factor in this condition. Trying to get in better health Review of Systems Constitutional: Negative for unexpected weight change. Respiratory: Negative for cough and shortness of breath. Psychiatric/Behavioral: Positive for sleep disturbance (JULIA). The patient is nervous/anxious (see hPI). Vitals Ht 165.1 cm (5' 5 ) Wt 120.2 kg (265 lb) BMI 44.10 kg/m?? Physical Exam Constitutional: General: He is not in acute distress. Appearance: Normal appearance. He is obese. Pulmonary: Effort: Pulmonary effort is normal. Neurological: Mental Status: He is alert and oriented to person, place, and time. Psychiatric: Mood and Affect: Mood normal. Behavior: Behavior normal. Diagnoses and all orders for this visit: Cigarette nicotine dependence without complication (Primary) Comments: starter pack prescribed, can smoke the first week and then stop. let me know how doing and I can send out continuing packs Encounter for weight management Comments: will send in script for wegovy to see if covered and available in the pharmacy. discussed routes ofadmin, weekly dosing, diet, exercise Other orders - varenicline tartrate (CHANTIX WALKER) 0.5 mg (11)- 1 mg (42) tablet; Use as directed on package instructions, try to quit smoking after 1 week. - semaglutide (Wegovy) 0.25 mg/0.5 mL auto-injector; Inject 0.5 mL (0.25 mg total) under the skin every 7 days No follow-ups on file. Dorothea Cisneros PA-C Cosigned by Fly Ballard MD at 02/15/2023 11:02 AM CDT documented in this encounter Plan of Treatment Not on file documented as of this encounter Visit Diagnoses Diagnosis Cigarette nicotine dependence without complication- Primary Encounter for weight management documented in this encounter Discontinued Medications Medication Sig Discontinue Reason Start Date End Da te busPIRone (BUSPAR) 15 mg tabletIndications:Anxiety TAKE 1 TABLET(15 MG) BY MOUTH THREE TIMES DAILY Therapy completed 12/06/2019 02/15/2023 documented as of this encounter Care Teams Inspector Barrel Relationship Specialty Start Date End Date Dorothea Cisneros PA [address] [facility] [address] [address] [place] [address] [place] [id number] PCP - General 08/11/19 documented as of this encounter
--- OUTSIDE RECORDS SUMMARY | 2024-06-18 19:10 | XMS_ITS | Encounter Summary ---
Author Organization [facility] Address [address] [facility] [address] [place] [address] Care Team Providers Care Epic Cadence Specialists Name Role Phone Dorothea Cisneros Primary Care Provider + Encounter Details Date Type Department Care Team (Late st Contact Info) Description 01/24/2023 1:00 PM CDT Office Visit [facility] Pulmonary [place] [address] [facility] [address] [place] [address] Dana Armenta, MULE OPERATOR [address] [facility] [address] [address] JULIA (obstructive sleep apnea) (Primary Dx) Social History Tobacco Use Types Packs/Day Years [...] on file 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 Gender Identity Male 07/21/2019 1:21 AM CRYSTAL GROWING TECHNICIAN Sexual Orientation Meléndez 07/21/2019 1: 21 AM CRYSTAL GROWING TECHNICIAN documented as of this encounter Last Filed Vital Signs Vital Sign Reading Time Taken Comments Blood Pressure 144/88 01/24/2023 12:56 PM CDT Pulse 91 01/24/2023 12:56 PM CDT Temperature 36.6 ??C (97.8 ??F) 01/24/2023 12:56 PM C DT Respiratory Rate 18 01/24/2023 12:56 PM CDT Oxygen Saturation 97% 01/24/2023 12:56 PM CDT Inhaled Oxygen Concentration - - Weight 123.8 kg (273 lb) 01/24/2023 12:56 PM CDT Height 165.1 cm (5' 5 ) 01/24/2023 12:56 PM CDT Body Mass Index 45.43 01/24/2023 12:56 PM CDT documented in this encounter Progress Notes * Dana Armenta, TEJA - 01/24/2023 1:00 PM CDT Images from the original note were not included. Patient ID: Lee Osborne is a 32 y.o. male. HPI. Patient is a 32 y.o. male returns for a follow-up of JULIA. The patient states he has been unable to tolerate his CPAP. The patient states that the fullface mask just causes him to have anxiety. No chief complaint on file. Current Medications: Outpatient Encounter Medications as of 01/24/2023 Medication Sig Dispense Refill busPIRone (BUSPAR) 15 mg tablet TAKE 1 TABLET(15 MG) BY MOUTH THREE TIMES DAILY (Patient taking differently: 1 tab in the am, 2 in the afternoon and 1 at night) 90 tablet 2 ciprofloxacin-hydrocortisone (CIPRO HC OTIC) otic suspension Administer 3 drops into the right ear 2 (two) times a day 10 mL 0 clonazePAM (KlonoPIN) 0.5 mg tablet TAKE 1/2 TABLET BY MOUTH ONCE A DAY NEEDED FLUoxetine (PROzac) 40 mg capsule Take 1 capsule (40 mg total) by mouth daily (Patient taking differently: Take 1 capsule (40 mg total) by mouth daily 2 capsules daily) 30 capsule 0 lamoTRIgine (LaMICtal) 100 mg tablet Take 1 tablet (100 mg total) by mouth daily Lunesta 1 mg tablet Take 1 tablet (1 mg total) by mouth nightly mirtazapine (REMERON) 15 mg tablet Take by mouth nightly hgqrhfte-emhnmferw-AI (CORTISPORIN) 3.5-10,000-1 mg/mL-unit/mL-% otic suspension Administer 2 dropsinto the right ear 4 (four) times a day 10 mL 0 omeprazole (PriLOSEC) 20 mg capsule Take 1 capsule (20 mg total) by mouth daily pramipexole (MIRAPEX) 0.5 mg tablet Take 1 tablet (0.5 mg total) by mouth nightly at bedtime. prazosin (MINIPRESS) 2 mg capsule TAKE 3 CAPSULES BY MOUTH AT BEDTIME AND 1 CAPSULE EVERY MORNING propranoloL (INDERAL) 20 mg tablet Take 1 tablet (20 mg total) by mouth 2 (two) times a day traZODone (DESYREL) 50 mg tablet Take 50 mg by mouth nightly at bedtime. (Patient not taking: Reported on 01/08/2023) No facility-administered encounter medications on file as of 01/24/2023. Review of Systems Constitutional: Negative for fever. HENT: Negative for tinnitus. Eyes: Negative for visual disturbance. Respiratory: Negative for cough, shortness of breath and wheezing. Cardiovascular: Negative for chest pain. Gastrointestinal: Negative for diarrhea, nausea and vomiting. Skin: Negative for rash. Neurological: Negative for dizziness. BP 144/88 Pulse 91 Temp 36.6 ??C (97.8 ??F) Resp 18 Ht 165.1 cm (5' 5 ) Wt 123.8 kg (273 lb) SpO2 97% BMI 45.43 kg/m?? Physical Exam Constitutional: General: He is not in acute distress. HENT: Mouth/Throat: Pharynx: No oropharyngeal exudate. Eyes: Pupils: Pupils are equal, round, and reactive to light. Cardiovascular: Rate and Rhythm: Normal rate and regular rhythm. Pulmonary: Effort: Pulmonary effort is normal. Breath sounds: Normal breath sounds. No wheezing. Abdominal: Palpations: Abdomen is soft. Musculoskeletal: Cervical back: Normal range of motion. Imaging: No results found. Assessment & Plan: Diagnoses and all orders for this visit: JULIA (obstructive sleep apnea) (Primary) Assessment & Plan: I have encouraged the patient to use his CPAP. I have given the patient a sample mask of the ResMedmed in 20 nasal mask to try. The patient will call back in if he has any difficulties. Return in about 3 months (around 04/26/2023). Dana Armenta NP Cosigned by Gaurav Schilling MD at 01/24/2023 5:02 PM CDT documented in this encounter Miscellaneous Notes * Assessment & Plan Note - Dana Armenta NP - 01/24/2023 1:44 PM CDT Associated Problem(s): JULIA (obstructive sleep apnea) I have encouraged the patient to use his CPAP. I have given the patient a sample mask of the ResMedmed in 20 nasal mask to try. The patient will call back in if he has any difficulties. documented in this encounter Plan of Treatment Not on file documented as of this encounter Visit Diagnoses Diagnosis JULIA (obstructive sleep apnea)- Primary Obstructive sleep apnea (adult) (pediatric) documented in this encounter Care Teams Epic Cadence Specialists Relationship Specialty Start Date End Date Dorothea Cisneros PA [address] [facility] [facility] [facility] [address] [place] [address] [place] [id number] PCP - General 08/11/19 documented as of this encounter
--- OUTSIDE RECORDS SUMMARY | 2024-06-18 19:10 | XMS_ITS | Encounter Summary ---
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 Gender Identity Male 07/21/2019 1:21 AM JEWELRY DIPPER Sexual Orientation Meléndez 07/21/2019 1: 21 AM JEWELRY DIPPER documented as of this encounter Medications at Time of Discharge busPIRone (BUSPAR) 30 mg tablet 1/2 in the morning, 1 tab in the afternoon, 1/2 at night 01/16/2023 clonazePAM (KlonoPIN) 0.5 mg tablet TAKE 1/2 TABLET BY MOUTH ONCE A DAY NEEDED 10/10/2020 FLUoxetine (PROzac) 40 mg capsuleIndicatio ns:Anxiety Take 1 capsule (40 mg total) by mouth daily 30 capsule 09/12/2019 montelukast (SINGULAIR) 4 mg chewable tablet 1 [...] mouth 2 (two) times a day 10/15/2020 busPIRone (BUSPAR) 15 mg tabletIndication s:Anxiety TAKE 1 TABLET(15 MG) BY MOUTH THREE TIMES DAILY 90 tablet 2 12/06/2019 02/15/2023 lamoTRIgine (LaMICtal) 100 mg tablet Take 1 tablet (100 mg total) by mouth daily 10/15/2020 11/15/2023 Lunesta 1 mg tablet Take 1 tablet (1 mg total) by mouth nightly 12/12/2022 11/15/2023 mirtazapine (REMERON) 15 mg tablet Take by mouth nightly 10/15/2021 11/15/2023 pramipexole (MIRAPEX) 0.5 mg tablet Take 1 tablet (0.5 mg total) by mouth nightly at bedtime. 10/15/2021 11/15/2023 documented as of this encounter Discharge Disposition Disposition Code Departure Means Destination Discharge to home or self care documented in this encounter Plan of Treatment Not on file documented as of this encounter Procedures Procedure Name Priority Date/Time Associated Diagnosis Comments AEROBIC AND ANAEROBIC CULTURE AND GRAM STAIN Routine 02/11/2023 3:08 PM CDT Nasal lesion documented in this encounter Results * Aerobic and anaerobic culture and gram stain Wound Nares, left (02/11/2023 3:08 PM CDT) Direct Specimen Exam Stain: No polymorphonuclear leukocytes seen. No organisms seen. [facility] Report Final Report: Few Mixed microorganisms. [facility] Organism MIXED MICROORGANISMS. [facility] Wound (Nares, left) 02/11/2023 3:08 PM CDT 02/11/2023 6:30 PM CDT Narrative [facility] - 02/15/2023 11:11 AM CDT Specimen received on an ESwab. Left nares Testing performed by [facility]biology Laboratory ([phone]) Specimens submitted from normally sterile body sites will have all bacterial morphotypes identified. Specimens that contain grossly mixed misa and/or are from body sites that are not normally sterile will be examined for Staphylococcus aureus, Pseudomonas aeruginosa, beta-hemolytic strep, vancomycin-resistant Enterococcus, Bacteroides, Parabacteroides, Clostridium perfringens and fungus. If any of these are isolated, the organism will be reported. Current interpretive data was last revised on 2019. us Henry Clark MD LAB MICROBIOLOGY - [facility] AL ORDERABLES Final Result [facility] Department [place] [address] documented in this encounter Visit Diagnoses Diagnosis Nasal lesion Other diseases of nasal cavity and sinuses documented in this encounter Care Teams Strategic Planning Specialist Relationship Specialty Start Date End Date Dorothea Cisneros PA [address] [facility] [address] [address] PCP - General 08/11/19 documented as of this encounter
--- OUTSIDE RECORDS SUMMARY | 2024-06-18 19:10 | XMS_ITS | Encounter Summary ---
Author Organization [facility] Address [address] [facility] [address] [place] [address] Care Team Providers Care Security Coordinator Name Role Phone Dorothea Cisneros Primary Care Provider + Reason for Visit * Reason Comments Congestion Nasal congestion,R e ar pain, cough, little bit sore throat x 4 days Encounter Details Date Type Department Care Team (Late st Contact Info) Description 01/08/2023 3:00 PM CDT Office Visit [facility] Family Medicine [address] [facility] [address] [place] [address] Dorothea Cisneros PA [address] [place] [address] [address] [place] [address] RLS (restless legs syndrome) (Primary Dx); Acute cough; Acute otitis externa of right ear, unspecified type; JULIA (obstructive sleep apnea); Morbid obesity with BMI of 45.0-49.9, adult (HCC) Social History Tobacco Use Types Packs/Day Years Used Date Smoking Tobacco: Every Day Cigarettes 0.5 15 Cigarillos Smokeless Tobacco: Never Tobacco Cessation:Ready to Q uit: Yes; Counseling Given: Not Answered Alcohol Use Standard [...] on file 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 Gender Identity Male 07/21/2019 1:21 AM DIESEL ENGINE OPERATOR Sexual Orientation Meléndez 07/21/2019 1: 21 AM DIESEL ENGINE OPERATOR documented as of this encounter Last Filed Vital Signs Vital Sign Reading Time Taken Comments Blood Pressure 124/76 01/08/2023 3:14 PM CDT Pulse 76 01/08/2023 3:14 PM CDT Temperature 36.6 ??C (97.9 ??F) 01/08/2023 3:14 PM CD T Respiratory Rate 18 01/08/2023 3:14 PM CDT Oxygen Saturation 97% 01/08/2023 3:14 PM CDT Inhaled Oxygen Concentration - - Weight 124.7 kg (275 lb) 01/08/2023 3:14 PM CDT verbal Height 165.1 cm (5' 5 ) 01/08/2023 3:14 PM CDT Body Mass Index 45.76 01/08/2023 3:14 PM CDT documented in this encounter Ordered Prescriptions Prescription Sig Dispense Quantity Refills Last Filled Start Date End Date ciprofloxacin-hydr ocortisone (CIPRO HC OTIC) otic suspension Administer 3 drops into the right ear 2 (two) times a day 10 mL 01/08/2023 documented in this encounter Progress Notes * Dorothea Cisneros PA - 01/08/2023 3:00 PM CDT Images from the original note were not included. Subjective/Objective Visit date: 01/08/2023 Patient ID: Lee Osborne is a 32 y.o. male. Chief Complaint Chief Complaint Patient presents with Congestion Nasal congestion,R ear pain, cough, little bit sore throat x 4 days Current Outpatient Medications: busPIRone (BUSPAR) 15 mg tablet, TAKE 1 TABLET(15 MG) BY MOUTH THREE TIMES DAILY (Patient taking differently: 1 tab in the am, 2 in the afternoon and 1 at night), Disp: 90 tablet, Rfl: 2 clonazePAM (KlonoPIN) 0.5 mg tablet, TAKE 1/2 TABLET BY MOUTH ONCE A DAY NEEDED, Disp: , Rfl: FLUoxetine (PROzac) 40 mg capsule, Take 1 capsule (40 mg total) by mouth daily (Patient taking differently: Take 1 capsule (40 mg total) by mouth daily 2 capsules daily), Disp: 30 capsule, Rfl: 0 lamoTRIgine (LaMICtal) 100 mg tablet, Take 1 tablet (100 mg total) by mouth daily, Disp: , Rfl: Lunesta 1 mg tablet, Take 1 tablet (1 mg total) by mouth nightly, Disp: , Rfl: mirtazapine (REMERON) 15 mg tablet, Take by mouth nightly, Disp: , Rfl: omeprazole (PriLOSEC) 20 mg [...] 2 (two) times a day, Disp:, Rfl: ciprofloxacin-hydrocortisone (CIPRO HC OTIC) otic suspension, Administer 3 drops into the right ear2 (two) times a day, Disp: 10 mL, Rfl: 0 traZODone (DESYREL) 50 mg tablet, Take 50 mg by mouth nightly at bedtime. (Patient not taking: Reported on 01/08/2023), Disp: , Rfl: No Known Allergies HPI URI: symptoms began 4 days ago with RT ear pain accomp by congestion. No fever, chills, cough, rash. Pain hurts along jaw and RT side of face. He has pain with chewing also. Last dental check up 2 years ago. Does have a h/o Ear infections. On ibuprofen, coricidin. No ear drainage. No dizziness. Has seen dr garcia and diagnosed with JULIA; working with psych dr to use it. Not really been able to use it. His RLS symptoms are worsening. Currently on 0.5mg mirapex PHQ Screening Over the last 2 weeks, [...] Total Score: 21 Review of Systems Constitutional: Negative for chills and fever. HENT: Positive for ear pain, hearing loss and rhinorrhea. Negative for ear discharge and sore throat. See HPI Respiratory: Positive for cough (see HPI). Negative for shortness of breath. Gastrointestinal: Positive for diarrhea. Negative for abdominal pain and vomiting. Musculoskeletal: Positive for neck pain. Skin: Negative for rash. Neurological: RLS and leg twitching at night: see hPI Psychiatric/Behavioral: Positive for sleep disturbance (see HPI). The patient is nervous/anxious (sees psych). Vitals BP 124/76 (BP Location: Right arm, Patient Position: Sitting) Pulse 76 Temp 36.6 ??C (97.9 ??F) (Temporal) Resp 18 Ht 165.1 cm (5' 5 ) Wt 124.7 kg (275 lb) SpO2 97% BMI 45.76 kg/m?? Neg flu and covid swabs. Physical Exam Constitutional: General: He is not in acute distress. Appearance: He is morbidly obese. HENT: Left Ear: Tympanic membrane, ear canal and external ear normal. Ears: Comments: RT canal edematous with exudates, tender during exam and with tragal manipulation Nose: No congestion or rhinorrhea. Eyes: Conjunctiva/sclera: Conjunctivae normal. Cardiovascular: Rate and Rhythm: Normal rate and regular rhythm. Heart sounds: Normal heart sounds. Lymphadenopathy: Cervical: No cervical adenopathy. Neurological: Mental Status: He is alert and oriented to person, place, and time. Psychiatric: Mood and Affect: Mood normal. Behavior: Behavior normal. Diagnoses and all orders for this visit: RLS (restless legs syndrome) (Primary) Comments: symptoms uncontrolled. ok to try 1mg mirapex nightly Acute cough Comments: normal exam, neg for covid, influenza; continue fluids, coricidin Orders: - POC Influenza A/B, COVID-19 antigen Acute otitis externa of right ear, unspecified type Comments: cipro/hct drops as directed, NSAID JULIA (obstructive sleep apnea) Comments: pt unable to tolerate CPAP. needs to f/u with dr. garcia. we discussed the risks of untreated JULIA Other orders - ciprofloxacin-hydrocortisone (CIPRO HC OTIC) otic suspension; Administer 3 drops into the right ear 2 (two) times a day Return if symptoms worsen or fail to improve. Dorothea Cisneros PA-C documented in this encounter Plan of Treatment Not on file documented as of this encounter Procedures Procedure Name Priority Date/Time Associated Diagnosis Comments POC INFLUENZA A/B, COVID-19 ANTIGEN Routine 01/08/2023 3:24 PM CDT Acute cough documented in this encounter Results * POC Influenza A/B, COVID-19 antigen (01/08/2023 3:24 PM CDT) Influenza A Ag, POC Negative Negative [facility] Influenza B Ag, POC Negative Negative [facility] COVID-19 Ag POC Presumptive Negative Presumptive Negative, Invalid [facility] Nasal 01/08/2023 3:24 PM CDT Dorothea Manzo POINT OF CARE TEST ORDER [place] Final Result [facility] [address] [place] [address] documented in this encounter Visit Diagnoses Diagnosis RLS (restless legs syndrome)- Primary Restless legs syndrome (RLS) Acute cough Acute otitis externa of right ear, unspecified type JULIA (obstructive sleep apnea) Obstructive sleep apnea (adult) (pediatric) Morbid obesity with BMI of 45.0-49.9, adult ([facility]) documented in this encounter Historical Medications * This list may reflect changes made after this encounter. Lunesta 1 mg tablet Take 1 tablet (1 mg total) by mouth nightly 12/12/2022 11/15/2023 added in this encounter Additional Health Concerns Infection Onset Date Last Indicated Resolved Time COVID: Suspected 01/08/2023 01/08/2023 01/08/2023 3:26 PM CDT documented as of this encounter Care Teams Security Coordinator Relationship Specialty Start Date End Date Dorothea Cisneros PA [address] [facility] [address] [place] [address] PCP - General 08/11/19 documented as of this encounter
--- OUTSIDE RECORDS SUMMARY | 2024-06-18 19:10 | XMS_ITS | Encounter Summary ---
Author Organization [facility] Healthcare Address [address] [place] [address] Care Team Providers Care Metal Spraying Machine Operator Name Role Phone Dorothea Cisneros Primary Care Provider + Reason for Referral * Sleep Medicine (Routine) - Closed Specialty Diagnoses / Procedures Referred By Susana narayanan Referred To Contact Diagnoses JULIA (obstructive sleep apnea) Procedures Portable/Home Sleep Study Gaurav Schilling MD [address] [place] [address] [address] [place] [address] Phone: tel: fax: [address] [phone] Referral ID Status Reason Start Date Expiration Date Visits Re quested Visits Authorized [id number] Closed 10/24/2021 11/23/2022 1 1 Reason for Visit * Sleep Medicine (Routine) - Closed Specialty Diagnoses / Procedures Referred By Susana narayanan Referred To Contact Diagnoses JULIA (obstructive sleep apnea) Procedures Portable/Home Sleep Study Gaurav Schilling MD [address] [place] [address] [address] [place] [address] Phone: tel: fax: [address] [phone] Referral ID Status Reason Start Date Expiration Date Visits Re quested Visits Authorized [id number] Closed 10/24/2021 11/23/2022 1 1 Encounter Details Date Type Department Care Team (Latest Contact Info) Description 12/27/2021 9:00 AM CDT - 12/27/2021 11:59 PM CDT Hospital Encounter [facility] [address] [place] [address] JULIA (obstructive sleep apnea) Discharge Disposition: Discharge to home or self [...] on file 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 Gender Identity Male 07/21/2019 1:21 AM HANDLE BENDER Sexual Orientation Meléndez 07/21/2019 1: 21 AM HANDLE BENDER documented as of this encounter Medications at Time of Discharge clonazePAM (KlonoPIN) 0.5 mg tablet TAKE 1/2 TABLET BY MOUTH ONCE A DAY NEEDED 10/10/2020 FLUoxetine (PROzac) 40 mg capsuleIndicatio ns:Anxiety Take 1 capsule (40 mg total) by mouth daily 30 capsule 09/12/2019 omeprazole (PriLOSEC) 20 mg capsule Take 1 [...] mg total) by mouth daily 10/15/2020 11/15/2023 mirtazapine (REMERON) 15 mg tablet Take by mouth nightly 10/15/2021 11/15/2023 pramipexole (MIRAPEX) 0.5 mg tablet Take 1 tablet (0.5 mg total) by mouth nightly at bedtime. 10/15/2021 11/15/2023 documented as of this encounter Discharge Disposition Disposition Code Departure Means Destination Discharge to home or self care documented in this encounter Miscellaneous Notes * Addendum Note - Gaurav Schilling MD - 12/27/2021 9:00 AM CDTEncounter addended by: Gaurav Schilling MD on: 12/28/2021 4:09 PM Actions taken: Charge Capture section accepted documented in this encounter Plan of Treatment Not on file documented as of this encounter Procedures Procedure Name Priority Date/Time Associated Diagnosis Comments PORTABLE/HOME SLEEP STUDY Routine 12/27/2021 9:02 AM CDT JULIA (obstructive sleep apnea) documented in this encounter Results * Portable/Home Sleep Study (12/27/2021 9:02 AM CDT) us Gaurav Schilling MD [facility] ORDERABLES F inal Result [facility] [address] [place] [address] documented in this encounter Visit Diagnoses Diagnosis JULIA (obstructive sleep apnea) Obstructive sleep apnea (adult) (pediatric) documented in this encounter Care Teams Metal Spraying Machine Operator Relationship Specialty Start Date End Date Dorothea Cisneros PA [address] [facility] [address] [address] PCP - General 08/11/19 documented as of this encounter
--- OUTSIDE RECORDS SUMMARY | 2024-06-18 19:10 | XMS_ITS | Encounter Summary ---
Author Organization [facility] Address [address] [place] [address] Phone Care Team Providers Care Form Setter Steel Pan Forms Name Role Phone Dorothea Cisneros Primary Care Provider + Reason for Visit * Reason Comments nasal lesion R15 * Consultation (Routine) - Closed Specialty Diagnoses / Procedures Referred By Contac t Referred To Contact Otolaryngology Diagnoses Nasal lesion Dorothea Cisneros PA [address] [facility] [address] [address] Phone: tel: fax: [facility] Advanced Medicine ([facility]) - [facility] ENT [address] [facility] [address]th [place] [address] [place] [address] Phone: tel: fax: Referral ID Status Reason Start Date Expiration Date V isits Requested Visits Authorized [id number] Closed Specialty Services Required 01/23/2023 02/22/2024 1 1 Encounter Details Date Type Department Care Team (Late st Contact Info) Description 02/11/2023 2:40 PM CDT Office Visit 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 HISTORY OF PRESENT ILLNESS Mr. Osborne comes to clinic today for evaluation of intermittent, Mild: nasal septum lesion That has been present for 1 year(s), and has associated symptoms including: intermittent pain. No drainage or bleeding. The patient has been prescribed nothing. Nothing make the symptoms worse. Nothingmake the symptoms better. The symptoms occur when - fluctuating over the last 1 year. Past Medical/Surgical History Past Medical History: Diagnosis Date Alcohol abuse 2009 Anxiety Dental disease Depression 2004 GERD (gastroesophageal reflux disease) Hypertension 2019 Peptic ulceration 2004 Seizures ([facility]) 2011 Sleep apnea Likely Substance abuse ([facility]) ([facility]) 2008 Past Surgical History: Procedure Laterality Date NO PAST SURGERIES Past Family/Social History Family History Problem Relation Age of Onset Hypertension Mother Allergy (severe) Mother Depression Mother Allergies Mother Diabetes Father Hypertension Father Anxiety disorder Sister Depression Sister Social History Tobacco Use Smoking status: Every Day Packs/day: 0.50 Years: 15.00 Pack years: 7.50 Types: Cigarettes, Cigarillos Smokeless tobacco: Never Substance and Sexual Activity Drug use: Not Currently Types: Marijuana Sexual activity: Yes Partners: Male control/protection: None Alcohol Use: Heavy Drinker (05/09/2021) AUDIT-C Frequency of Alcohol Consumption: 2-3 times a week Average Number of Drinks: 3 or 4 Frequency of Binge Drinking: Never Medications/Allergies/Immunizations Current Outpatient Medications Medication Sig Dispense Refill busPIRone (BUSPAR) 30 mg tablet TAKE 1 TABLET BY MOUTH EVERY AFTERNOON AND EVERY EVENING busPIRone (BUSPAR) 15 mg tablet TAKE 1 TABLET(15 MG) BY MOUTH THREE TIMES DAILY (Patient taking differently: 1 tab in the am, 2 in the afternoon and 1 at night) 90 tablet 2 clonazePAM (KlonoPIN) 0.5 mg tablet TAKE 1/2 [...] 15 mg tablet Take by mouth nightly montelukast (SINGULAIR) 4 mg chewable tablet 1 [...] by mouth 2 (two) times a day No current facility-administered medications for this visit. Allergies: Patient has no known allergies., Immunizations: Immunization History Administered Date(s) Administered Influenza, Unspecified 03/31/2022 Pfizer SARS-CoV-2 Monovalent Vaccination (12+ Yrs) PURPLE 09/07/2020, 09/28/2020 Review of Systems The 12 point review of systems filled out by the patient on their history form was reviewed today, and will be scanned into the encounter. Physical Exam Vital Signs: There were no vitals taken for this visit. PHYSICAL EXAMINATION: GENERAL: Well-developed, well-nourished. Voice quality is normal. NEURO/PSYCH: Cranial nerves II- XII are grossly normal. Affect is normal. Alert and oriented. Extraocular muscles are intact. HEAD/FACE: Normocephalic; atraumatic. No facial skin lesions. Facial strength is 5/5 and the face is symmetric. EARS : External ears have no skin lesions. Hearing is grossly intact. Right - EAC patent, mild edema. TM intact. Middle ear aerated. Left - EAC patent. TM intact. Middle ear aerated. NOSE: External nose has no skin lesions. Anterior rhinoscopy with 2-3mm skin lesion on the left columella ORAL CAVITY/ OROPHARYNX: Normal oral vestibule. Oral mucosa is moist without lesions. Tongue and floor of mouth are without lesions or masses. Palate has no lesions and elevates symmetrically. Tonsils are 1+. Oropharynx is clear. NECK: Trachea is midline. Thyroid is normal in size with no apparent nodules. LYMPHATIC: No cervical lymphadenopathy. MUSCULOSKELATAL: Ambulates without difficulty. Neck full range of motion. RESPIRATORY: Breathing comfortably without audible wheeze, stertor or stridor. PROCEDURE: N/a RESULTS: N/a ASSESSMENT & PLAN Problem List Items Addressed This Visit None Visit Diagnoses Nasal lesion - Left nasal columella wound cultured - Polysporin ointment BID - Follow-up as needed ATTENDING ATTESTATION: I have seen and examined the patient. I performed the endoscopy. I agree with the findings and planof care as documented in the resident's note. Henry Clark M.D., M.A., F.A.C.S. Gear Tester and Fruit Packer Face And Fill Division of Rhinology and Anterior Skull Base Surgery [facility] [employer] [facility] [address] [place] [address] [place] [phone] - Appointments - Clinical coordinator (Chhaya Figueroa LPN) - Clinical fax - Academic office - Academic office fax EMAIL: [email or web address] documented in this encounter Plan of Treatment Not on file documented as of this encounter Results * Aerobic and anaerobic culture and gram stain Wound Nares, left (02/11/2023 3:08 PM CDT) Direct Specimen Exam Stain: No polymorphonuclear leukocytes seen. No organisms seen. [facility] Report Final Report: Few Mixed microorganisms. [facility] Organism MIXED MICROORGANISMS. [facility] Wound (Nares, left) 02/11/2023 3:08 PM CDT 02/11/2023 6:30 PM CDT N[facility]ative [facility] 02/15/2023 11:11 AM CDT Specimen received on an ESwab. Left nares Testing performed by [facility] Microbiology Laboratory ([phone]) Specimens submitted from normally sterile body sites [...] interpretive data was last revised on 2019. Henry Clark MD LAB MICROBIOLOGY - [facility] AL ORDERABLES Final Result [facility] Department [place] [address] documented in this encounter Visit Diagnoses Diagnosis Nasal lesion- Primary Other diseases of nasal cavity and sinuses Nasal lesion Other diseases of nasal cavity and sinuses documented in this encounter Discontinued Medications Medication Sig Discontinue Reason Start Date End Da te traZODone (DESYREL) 50 mg tablet Take 50 mg by mouth nightly at bedtime. 01/30/2022 02/11/2023 ciprofloxacin-hydrocor tisone (CIPRO HC OTIC) otic suspension Administer 3 drops into the right ear 2 (two) times a day 01/08/2023 02/11/2023 [id number] (CORTISPORIN) 3.5-10,000-1 mg/mL-unit/mL-% otic suspension Administer 2 drops into the right ear 4 (four) times a day 01/09/2023 02/11/2023 documented as of this encounter Historical Medications * This list may reflect changes made after this encounter. busPIRone (BUSPAR) 30 mg tablet 1/2 in the morning, 1 tab in the afternoon, 1/2 at night 01/16/2023 montelukast (SINGULAIR) 4 mg chewable tablet 1 tablet Orally Once a day AM added in this encounter Orders Outpatient Referral Count Last Ordered Date Fir st Ordered Date AMB REFERRAL TO ENT 1 02/11/2023 documented in this encounter Care Teams Form Setter Steel Pan Forms Relationship Specialty Start Date End Date Dorothea Cisneros PA [address] [facility] [address] [place] [address] PCP - General 08/11/19 documented as of this encounter
--- OUTSIDE RECORDS SUMMARY | 2024-06-18 19:10 | XMS_ITS | Encounter Summary ---
Author Organization [facility] Address [address] [place] [address] Care Team Providers Care Powerhouse Laborer Name Role Phone Dorothea Cisneros Primary Care Provider + Reason for Visit * Reason Comments Wrist Pain right Ankle Pain right Encounter Details Date Type Department Care Team (Late st Contact Info) Description 10/26/2020 11:15 AM CDT Office Visit [facility] Family Medicine [address] [place] [phone] Dorothea Cisneros PA [address] [place] [id number] Right wrist pain (Primary Dx); Acute right ankle pain Social History Tobacco Use Types Packs/Day Years Used Date Smoking Tobacco: Former Smokeless Tobacco: Never Alcohol Use Standard Drinks/Week Comments Not Currently 2 (1 standard drink = 0.6 oz pur e alcohol) PHQ-2 Answer Date Recorded PHQ-2 Score 6 07/23/2019 Sex and Gender Information Value Date Recorded Sex Assigned at Not on file Legal 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 Gender Identity Male 07/21/2019 1:21 AM CIRCULATION ASSISTANT Sexual Orientation Meléndez 07/21/2019 1: 21 AM CIRCULATION ASSISTANT documented as of this encounter Last Filed Vital Signs Vital Sign Reading Time Taken Comments Blood Pressure 112/82 10/26/2020 11:31 AM CDT Pulse 76 10/26/2020 11:31 AM CDT Temperature 35.9 ??C (96.6 ??F) 10/26/2020 1 1:31 AM CDT Respiratory Rate 16 10/26/2020 11:3 1 AM CDT Oxygen Saturation 97% 10/26/2020 11: 31 AM CDT Inhaled Oxygen Concentration - - Weight 126.2 kg (278 lb 3.2 oz) 021 11:31 AM CDT Height 167.6 cm (5' 5.98 ) 10/26/2020 1 1:31 AM CDT Body Mass Index 44.92 10/26/2020 11:31 AM CDT documented in this encounter Ordered Prescriptions Prescription Sig Dispense Quantity Refills Last Filled Start Date End Date naproxen (NAPROSYN) 500 mg tabletIndications: Right wrist pain,Acute right ankle pain Take 1 tablet (500 mg total) by mouth 2 (two) times a day with meals 60 tablet 10/26/2020 11/21/2020 documented in this encounter Progress Notes * Dorothea Cisneros PA - 10/26/2020 11:15 AM CDT Images from the original note were not included. Subjective/Objective Visit date: 10/26/2020 Patient ID: Lee Osborne is a 30 y.o. male. Chief Complaint Chief Complaint Patient presents with ??? Wrist Pain right ??? Ankle Pain right Current Outpatient Medications: ??? busPIRone (BUSPAR) 15 mg tablet, TAKE 1 TABLET(15 MG) BY MOUTH THREE TIMES DAILY (Patient taking differently: 1 tab in the am, 2 in the afternoon and 1 at night), Disp: 90 tablet, Rfl: 2 ??? clonazePAM (KlonoPIN) 0.5 mg tablet, TAKE 1/2 TABLET BY MOUTH ONCE A DAY NEEDED, Disp: , Rfl: ??? gabapentin (NEURONTIN) 800 mg tablet, Take 800 mg by mouth nightly, Disp: , Rfl: ??? lamoTRIgine (LaMICtal) 100 mg tablet, Take 100 mg by mouth daily, Disp: , Rfl: ??? omeprazole (PriLOSEC) 20 mg capsule, Take 20 mg by mouth daily, Disp: , Rfl: ??? prazosin (MINIPRESS) 1 mg capsule, 1 in the am and 3 at night, Disp: , Rfl: ??? propranoloL (INDERAL) 20 mg tablet, Take 20 mg by mouth 2 (two) times a day, Disp: , Rfl: ??? traZODone (DESYREL) 50 mg tablet, Take 50 mg by mouth nightly at bedtime., Disp: , Rfl: ??? FLUoxetine (PROzac) 40 mg capsule, Take 1 capsule (40 mg total) by mouth daily (Patient taking differently: Take 40 mg by mouth daily 2 capsules daily), Disp: 30 capsule, Rfl: 0 ??? naproxen (NAPROSYN) 500 mg tablet, Take 1 tablet (500 mg total) by mouth 2 (two) times a day with meals, Disp: 60 tablet, Rfl: 0 No Known Allergies HPI RT wrist pain for 2 mos w/o provocation or injury; just suddenly began one morning. Initially shooting but now constantly aches with numbness mainly in the thumb . Denies swelling. Most of pain over the mid dorsal aspect. He hasn't taken any medications for this. Tries to wear a wrist splint at night and a thumb splint during the day. He is right handed. Had to stop being on his phone a lot b/c he wanted to avoid overuse. RT ankle pain maybe a month . No injury or reason to hurt that he can recall. Causes issues driving. Hurts over the superior aspect dorsally and worse with dorsiflexion. No swelling. aches and constant if weight bearing. Has RLS and takes gabapentin for that. His ankle hurts if it twitches . [facility] Has applied for disability and does not currently work. Lives with his partner. Review of Systems Constitutional: Negative for fever. Musculoskeletal: Positive for arthralgias (RT wrist and ankle: see HPI) and gait problem (see HPI).Negative for joint swelling. Skin: Negative for color change. Neurological: Positive for numbness (see HPI). Psychiatric/Behavioral: Positive for sleep disturbance (RLS). Vitals BP 112/82 (BP Location: Right arm, Patient Position: Sitting) Pulse 76 Temp (!) 35.9 ??C (96.6 ??F) Resp 16 Ht 167.6 cm (5' 5.98 ) Wt 126.2 kg (278 lb 3.2 oz) SpO2 97% BMI 44.92 kg/m?? Physical Exam Constitutional: General: He is not in acute distress. Appearance: Normal appearance. He is obese. He is diaphoretic (visibly sweating on face). Cardiovascular: Rate and Rhythm: Normal rate. Pulmonary: Effort: Pulmonary effort is normal. Musculoskeletal: Right wrist: Tenderness (mid dorsal wrist only) present. No swelling or deformity. Normal range of motion. Normal pulse. Right lower leg: No edema. Left lower leg: No edema. Right ankle: No swelling, deformity or ecchymosis. Tenderness (dorsally at superior aspect) present. Normal range of motion. Right Achilles Tendon: Normal. Skin: Findings: No erythema or rash. Neurological: Mental Status: He is alert and oriented to person, place, and time. Comments: The tinels test did reveal some numbness sensation in thumb only. phalen's neg Psychiatric: Mood and Affect: Mood normal. Behavior: Behavior normal. Diagnoses and all orders for this visit: Right wrist pain (Primary) Comments: Ice BID for 20minutes. avoid texting with thumbs and use voice. naproxen BID with food. continue night splint use. consider CTS if sx persist Orders: - naproxen (NAPROSYN) 500 mg tablet; Take 1 tablet (500 mg total) by mouth 2 (two) times a day withmeals Acute right ankle pain Comments: exam fairly benign. naproxen as directed, ice. report if sx persist or worsen Orders: - naproxen (NAPROSYN) 500 mg tablet; Take 1 tablet (500 mg total) by mouth 2 (two) times a day withmeals Return if symptoms worsen or fail to improve. Dorothea Cisneros PA-C documented in this encounter Plan of Treatment Not on file documented as of this encounter Visit Diagnoses Diagnosis Right wrist pain- Primary Pain in joint, forearm Acute right ankle pain documented in this encounter Discontinued Medications Medication Sig Discontinue Reason Start Date End Da te montelukast (SINGULAIR) 10 mg tabletIndications:Chron ic sinusitis, unspecified location TAKE 1 TABLET(10 MG) BY MOUTH EVERY NIGHT 12/01/2019 10/26/2020 metoprolol XL (TOPROL-XL) 50 mg extended release tablet Take 1 tablet (50 mg total) by mouth daily MUST MAKE APPT 02/03/2020 10/26/2020 fluticasone propionate (FLONASE) 50 mcg/actuation nasal sprayIndications:Chroni c sinusitis, unspecified location SHAKE LIQUID AND USE 2 SPRAYS IN EACH NOSTRIL DAILY 12/10/2019 10/26/2020 chlordiazePOXIDE (LIBRIUM) 25 mg capsule Take 1 capsule (25 mg total) by mouth 3 (three) times a day as needed for anxiety or withdrawal symptoms 08/03/2019 10/26/2020 azelastine (ASTELIN) 137 mcg (0.1 %) nasal spray Administer 2 sprays into each nostril 2 (two) times a day Use in each nostril as directed 11/09/2019 10/26/2020 lamoTRIgine (LaMICtal) 25 mg tablet 08/21/2019 10/26/2020 documented as of this encounter Historical Medications * This list may reflect changes made after this encounter. clonazePAM (KlonoPIN) 0.5 mg tablet TAKE 1/2 TABLET BY MOUTH ONCE A DAY NEEDED 10/10/2020 propranoloL (INDERAL) 20 mg tablet Take 1 tablet (20 mg total) by mouth 2 (two) times a day 10/15/2020 gabapentin (NEURONTIN) 800 mg tablet Take 800 mg by mouth nightly 10/15/2020 05/09/2021 traZODone (DESYREL) 50 mg tablet Take 50 mg by mouth nightly at bedtime. 10/15/2020 10/24/2021 lamoTRIgine (LaMICtal) 100 mg tablet Take 1 tablet (100 mg total) by mouth daily 10/15/2020 11/15/2023 added in this encounter Care Teams Powerhouse Laborer Relationship Specialty Start Date End Date Dorothea Cisneros PA [facility] [facility] [place] [address] PCP - General 08/11/19 documented as of this encounter
--- OUTSIDE RECORDS SUMMARY | 2024-06-18 19:10 | XMS_ITS | Encounter Summary ---
Author Organization [facility] Address [address] [place] [address] Care Team Providers Care Pack Worker Name Role Phone Dorothea Cisneros Primary Care Provider + Reason for Visit * Reason Comments Follow-up Encounter Details Date Type Department Care Team (Late st Contact Info) Description 02/08/2022 2:00 PM CDT Office Visit [facility] Pulmonary Radha [address] [place] [address] Dana Armenta, SLIPPER MAKER [address] [facility] [address] [address] JULIA (obstructive sleep apnea) (Primary [...] on file Legal Sex Male 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 Gender Identity Male 07/21/2019 1:21 AM SALES FORECAST ANALYST Sexual Orientation Meléndez 07/21/2019 1: 21 AM SALES FORECAST ANALYST documented as of this encounter Last Filed Vital Signs Vital Sign Reading Time Taken Comments Blood Pressure 110/80 02/08/2022 2:01 PM CDT Pulse 60 02/08/2022 2:01 PM CDT Temperature 36.7 ??C (98.1 ??F) 02/08/2022 2:01 PM CD T Respiratory Rate 18 02/08/2022 2:01 PM CDT Oxygen Saturation 98% 02/08/2022 2:01 PM CDT Inhaled Oxygen Concentration - - Weight 137 kg (302 lb) 02/08/2022 2:01 PM CDT Height 165.1 cm (5' 5 ) 02/08/2022 2:01 PM CDT Body Mass Index 50.26 02/08/2022 2:01 PM CDT documented in this encounter Progress Notes * Dana Armenta NP - 02/08/2022 2:00 PM CDT Images from the original note were not included. Patient ID: Lee Osborne is a 31 y.o. male. HPI. Patient is a 31 y.o. male returns for follow-up after have an in-home nocturnal polysomnogram completed on December 27, 2021. The patient was found have an overall apnea-hypopnea index 31.5 times per hour sleep. The lowest oxygen saturation recorded was 83%. Patient spent 8.2 minutes with an overall oxygen saturation below 90%. These results shared with the patient. Patient is scheduled to get his CPAP next week. Patient has tried CPAP in the past and did not tolerate it well. The patient states that his anxiety is better under control. Chief Complaint Patient presents with ??? Follow-up Current Medications: Outpatient Encounter Medications as of 02/08/2022 Medication Sig Dispense Refill ??? busPIRone (BUSPAR) 15 mg tablet TAKE 1 TABLET(15 MG) BY MOUTH THREE TIMES DAILY (Patient takingdifferently: 1 tab in the am, 2 in the afternoon and 1 at night) 90 tablet 2 ??? clonazePAM (KlonoPIN) 0.5 mg tablet TAKE 1/2 TABLET BY MOUTH ONCE A DAY NEEDED ??? FLUoxetine (PROzac) 40 mg capsule Take 1 capsule (40 mg total) by mouth daily (Patient taking differently: Take 40 mg by mouth daily 2 capsules daily) 30 capsule 0 ??? lamoTRIgine (LaMICtal) 100 mg tablet Take 100 mg by mouth daily 100 mg in the am and 50 mg in the afternoon ??? mirtazapine (REMERON) 15 mg tablet Take by mouth nightly ??? omeprazole (PriLOSEC) 20 mg capsule Take 20 mg by mouth daily ??? pramipexole (MIRAPEX) 0.5 mg tablet Take 0.5 mg by mouth nightly at bedtime. ??? prazosin (MINIPRESS) 2 mg capsule TAKE 3 CAPSULES BY MOUTH AT BEDTIME AND 1 CAPSULE EVERY MORNING ??? propranoloL (INDERAL) 20 mg tablet Take 20 mg by mouth 2 (two) times a day ??? traZODone (DESYREL) 50 mg tablet Take 50 mg by mouth nightly at bedtime. No facility-administered encounter medications on file as of 02/08/2022. Review of Systems Constitutional: Negative for fever. HENT: Negative for tinnitus. Eyes: Negative for visual disturbance. Respiratory: Negative for cough, shortness of breath and wheezing. Cardiovascular: Negative for chest pain. Gastrointestinal: Negative for diarrhea, nausea and vomiting. Skin: Negative for rash. Neurological: Negative for dizziness. BP 110/80 Pulse 60 Temp 36.7 ??C (98.1 ??F) Resp 18 Ht 165.1 cm (5' 5 ) Wt (!) 137 kg (302 lb) SpO2 98% BMI 50.26 kg/m?? Physical Exam Constitutional: General: He is [...] (obstructive sleep apnea) (Primary) Assessment & Plan: Did inform the patient that if he has any difficulty adjusting to his CPAP to contact the office. Patient's DME is going to be adapt. His CPAP will be set at a range of 5-20 cm water pressure. Return in about 3 months (around 05/11/2022). Dana Armenta NP Cosigned by Gaurav Schilling MD at 02/08/2022 2:48 PM CDT documented in this encounter Miscellaneous Notes * Assessment & Plan Note - Dana Armenta NP - 02/08/2022 2:17 PM CDT Associated Problem(s): JULIA (obstructive sleep apnea) Did inform the patient that if he has any difficulty adjusting to his CPAP to contact the office. Patient's DME is going to be adapt. His CPAP will be set at a range of 5-20 cm water pressure. documented in this encounter Plan of Treatment Not on file documented as of this encounter Visit Diagnoses Diagnosis JULIA (obstructive sleep apnea)- Primary Obstructive sleep apnea (adult) (pediatric) documented in this encounter Historical Medications * This list may reflect changes made after this encounter. traZODone (DESYREL) 50 mg tablet Take 50 mg by mouth nightly at bedtime. 01/30/2022 02/11/2023 added in this encounter Care Teams Pack Worker Relationship Specialty Start Date End Date Dorothea Cisneros PA [address] [address] [place] [address] PCP - General 08/11/19 documented as of this encounter
--- OUTSIDE RECORDS SUMMARY | 2024-06-18 19:10 | XMS_ITS | Encounter Summary ---
Author Organization [facility] Address [address] [address] Care Team Providers Care Business Process Manager Name Role Phone Dorothea Cisneros Primary Care Provider + Reason for Referral * Sleep Medicine (Routine) - Closed Specialty Diagnoses / Procedures Referred By Susana t Referred To Contact Diagnoses JULIA (obstructive sleep apnea) Procedures Portable/Home Sleep Study Gaurav Schilling MD [address] [facility] [address] [place] [address] Phone: tel: fax: [address] [address] Referral ID Status Reason Start Date Expiration Date Visits Re quested Visits Authorized [id number] Closed 10/24/2021 11/23/2022 1 1 Encounter Details Date Type Department Care Team (Late st Contact Info) Description 10/24/2021 11:30 AM CDT Office Visit [facility] Pulmonology & Sleep Clinic [address] [phone] Gaurav Schilling MD [address] [facility] [address] [place] [address] JULIA (obstructive sleep apnea) (Primary Dx) [...] on file Legal Sex Male 6:48 PM INFORMATION SECURITY ANALYST Gender Identity Male 07/21/2019 1:21 AM INFORMATION SECURITY ANALYST Sexual Orientation Meléndez 07/21/2019 1: 21 AM INFORMATION SECURITY ANALYST documented as of this encounter Last Filed Vital Signs Vital Sign Reading Time Taken Comments Blood Pressure 116/72 10/24/2021 11:40 AM CDT Pulse 77 10/24/2021 11:40 AM CDT Temperature 36.3 ??C (97.4 ??F) 10/24/2021 11:40 AM C DT Respiratory Rate 18 10/24/2021 11:40 AM CDT Oxygen Saturation 96% 10/24/2021 11:40 AM CDT Inhaled Oxygen Concentration - - Weight 129.7 kg (286 lb) 10/24/2021 11:40 AM CDT Height - - Body Mass Index 46.19 05/09/2021 11:24 AM INFORMATION SECURITY ANALYST documented in this encounter Progress Notes * Gaurav Schilling MD - 10/24/2021 11:30 AM CDT Images from the original note were not included. Progress Note Patient: Lee Osborne ( - 1990) is a 31 y.o. male. Visit Date: 10/24/2021 History of Present Illness: The patient is a 31-year-old male that was diagnosed with obstructive sleep apnea in January 2020 [facility] home sleep test. He was having a great deal of anxiety at that time and was unable to adapt to the CPAP unit and turned it in. He is still having snoring and daytime hypersomnia and he is waking himself up gasping at night. He has become so tired that he is very drowsy driving and is afraid he will fall asleep behind the wheel. He would like to be re-evaluated. Past Medical History: Past Medical History: Diagnosis Date ??? Anxiety ??? GERD (gastroesophageal reflux disease) Surgical History: Past Surgical History: Procedure Laterality Date ??? NO PAST SURGERIES Current Medications: Current Outpatient Medications Medication Sig Dispense Refill ??? busPIRone (BUSPAR) [...] current facility-administered medications for this visit. Allergies: No Known Allergies Family History: Family History Problem Relation Age of Onset ??? Hypertension Mother ??? Diabetes Father ??? Hypertension Father ??? Anxiety disorder Sister Social History: Social History Socioeconomic History ??? Marital status: Life Partner Tobacco Use ??? Smoking status: Current Some Day Smoker Packs/day: 0.05 Types: Cigarettes, Cigarillos ??? Smokeless tobacco: Never Used Substance and Sexual Activity ??? Alcohol use: Not Currently Alcohol/week: 2.0 standard drinks Types: 2 Shots of liquor per week ??? Drug use: Yes Types: Marijuana Review of Systems: Review of Systems Constitutional: Negative for appetite change, fever and unexpected weight change. HENT: Negative for rhinorrhea, sinus pressure, sinus pain, sore throat and tinnitus. Respiratory: Negative for cough, shortness of breath and wheezing. Cardiovascular: Negative for chest pain, palpitations and leg swelling. Gastrointestinal: Negative for abdominal pain, diarrhea and nausea. Genitourinary: Negative for hematuria. Musculoskeletal: Positive for back pain. Negative for arthralgias and myalgias. Skin: Negative for color change. Allergic/Immunologic: Negative for environmental allergies and food allergies. Neurological: Negative for dizziness and light-headedness. Physical Exam: Vitals: 10/24/21 1140 BP: 116/72 Pulse: 77 Resp: 18 Temp: 36.3 ??C (97.4 ??F) SpO2: 96% Weight: 129.7 kg (286 lb) Physical Exam Constitutional: Appearance: He is well-developed. HENT: Head: Normocephalic and atraumatic. Eyes: Pupils: Pupils are equal, round, and reactive to light. Cardiovascular: Rate and Rhythm: Normal rate and regular rhythm. Pulmonary: Effort: Pulmonary effort is normal. Breath sounds: Normal breath sounds. Abdominal: General: Bowel sounds are normal. Palpations: Abdomen is soft. Musculoskeletal: General: Normal range of motion. Cervical back: Normal range of motion and neck supple. Skin: General: Skin is warm and dry. Neurological: Mental Status: He is alert and oriented to person, place, and time. Data Reviewed Images: No results found. Assessment and Plan: Diagnoses and all orders for this visit: JULIA (obstructive sleep apnea) (Primary) Assessment & Plan: The patient returns with snoring, gasping episodes and excessive daytime hypersomnia. I will reorder the home sleep test to confirm the diagnosis and then order a CPAP unit for him. He will follow-upwith me in 3 months. Orders: - Portable/Home Sleep Study; Future Rendering Provider & Department: Gaurav Schilling MD documented in this encounter Miscellaneous Notes * Assessment & Plan Note - Gaurav Schilling MD - 10/24/2021 11:58 AM CDT Associated Problem(s): JULIA (obstructive sleep apnea) The patient returns with snoring, gasping episodes and excessive daytime hypersomnia. I will reorder the home sleep test to confirm the diagnosis and then order a CPAP unit for him. He will follow-upwith me in 3 months. documented in this encounter Plan of Treatment Not on file documented as of this encounter Results * Portable/Home Sleep Study (12/27/2021 9:02 AM CDT) us Gaurav Schilling MD SLEEP CENTER ORDERABLES F inal Result [facility] [address] [place] [address], [facility] documented in this encounter Visit Diagnoses Diagnosis JULIA (obstructive sleep apnea)- Primary Obstructive sleep apnea (adult) (pediatric) documented in this encounter Discontinued Medications Medication Sig Discontinue Reason Start Date End Da te traZODone (DESYREL) 50 mg tablet Take 50 mg by mouth nightly at bedtime. 10/15/2020 10/24/2021 pramipexole (MIRAPEX) 0.25 mg tablet Take 0.25 mg by mouth nightly at bedtime. 04/12/2021 10/24/2021 prazosin (MINIPRESS) 1 mg capsule 1 in the am and 3 at night 08/20/2019 10/24/2021 documented as of this encounter Historical Medications * This list may reflect changes made after this encounter. prazosin (MINIPRESS) 2 mg capsule TAKE 3 CAPSULES BY MOUTH AT BEDTIME AND 1 CAPSULE EVERY MORNING 10/15/2021 mirtazapine (REMERON) 15 mg tablet Take by mouth nightly 10/15/2021 11/15/2023 pramipexole (MIRAPEX) 0.5 mg tablet Take 1 tablet (0.5 mg total) by mouth nightly at bedtime. 10/15/2021 11/15/2023 added in this encounter Care Teams Business Process Manager Relationship Specialty Start Date End Date Dorothea Cisneros PA [address] [facility] [address] [address] PCP - General 08/11/19 documented as of this encounter
--- OUTSIDE RECORDS SUMMARY | 2024-06-18 19:10 | XMS_ITS | Encounter Summary ---
Author Organization [facility] Address [address] [place] [address] Care Team Providers Care Oncology Physician Name Role Phone Dorothea Cisneros Primary Care Provider + Encounter Details Date Type Department Care Team (Late st Contact Info) Description 11/24/2020 12:25 PM CDT Hospital Encounter [facility] INTERIM Dorothea Cisneros PA [address] [place] [address] Social History Tobacco Use Types Packs/Day Years Used Date Smoking Tobacco: Former Smokeless Tobacco: Never Alcohol Use Standard Drinks/Week Comments Not Currently 2 (1 standard drink = 0.6 oz pur e alcohol) PHQ-2 Answer Date Recorded PHQ-2 Score 6 07/23/2019 Sex and Gender Information Value Date Recorded Sex Assigned at Not on file Legal Sex Male 6:48 PM UNCLAIMED PROPERTY OFFICER Gender Identity Male 07/21/2019 1:21 AM UNCLAIMED PROPERTY OFFICER Sexual Orientation Meléndez 07/21/2019 1: 21 AM UNCLAIMED PROPERTY OFFICER documented as of this encounter Medications at Time of Discharge clonazePAM (KlonoPIN) 0.5 mg tablet TAKE 1/2 TABLET BY MOUTH ONCE A DAY NEEDED 10/10/2020 FLUoxetine (PROzac) 40 mg capsuleIndication s:Anxiety Take 1 capsule (40 mg total) by mouth daily 30 capsule 09/12/2019 omeprazole (PriLOSEC) 20 mg capsule Take 1 capsule (20 mg total) by mouth daily propranoloL (INDERAL) 20 mg tablet Take 1 tablet (20 mg total) by mouth 2 (two) times a day 10/15/2020 busPIRone (BUSPAR) 15 mg tabletIndications :Anxiety TAKE 1 TABLET(15 MG) BY MOUTH THREE TIMES DAILY 90 tablet 2 12/06/2019 02/15/2023 gabapentin (NEURONTIN) 800 mg tablet Take 800 mg by mouth nightly 10/15/2020 05/09/2021 lamoTRIgine (LaMICtal) 100 mg tablet Take 1 tablet (100 mg total) by mouth daily 10/15/2020 11/15/2023 naproxen (NAPROSYN) 500 mg tabletIndications :Right wrist pain,Acute right ankle pain TAKE 1 TABLET(500 MG) BY MOUTH TWICE DAILY WITH MEALS 60 tablet 11/21/2020 05/09/2021 prazosin (MINIPRESS) 1 mg capsule 1 in the am and 3 at night 08/20/2019 10/24/2021 traZODone (DESYREL) 50 mg tablet Take 50 mg by mouth nightly at bedtime. 10/15/2020 10/24/2021 documented as of this encounter Plan of Treatment Not on file documented as of this encounter Visit Diagnoses Not on filedocumented in this encounter Care Teams Oncology Physician Relationship Specialty Start Date End Date Dorothea Cisneros PA [address] [facility] [address] [place] [place] [id number] PCP - General 08/11/19 documented as of this encounter
--- OUTSIDE RECORDS SUMMARY | 2024-06-18 19:10 | XMS_ITS | Encounter Summary ---
Author Organization [facility] Healthcare Address [address] [place] [address] Care Team Providers Care Reconciling Clerk Name Role Phone Dorothea Cisneros Primary Care Provider + Reason for Referral * Diagnostic Imaging (Routine) - Closed Specialty Diagnoses / Procedures Referred By Contac t Referred To Contact Diagnoses Right foot pain Procedures XR Foot Right 3+ Vw [facility] [address] [place] [address] Phone: tel: fax: [address] [phone] Referral ID Status Reason Start Date Expiration Date Visits Re quested Visits Authorized [id number] Closed 05/09/2021 06/08/2022 1 1 MATIC LEHR OPERATOR Reason for Visit * Diagnostic Imaging (Routine) - Closed Specialty Diagnoses / Procedures Referred By Susana t Referred To Contact Diagnoses Right foot pain Procedures XR Foot Right 3+ Vw Dorothea Cisneros PA [facility] [address] [place] [address] Phone: tel: fax: [address] [phone] Referral ID Status Reason Start Date Expiration Date Visits Re quested Visits Authorized [id number] Closed 05/09/2021 06/08/2022 1 1 Encounter Details Date Type Department Care Team (Latest Contact Info) Description 05/16/2021 1:07 PM AUTOMATIC LEHR OPERATOR - 05/16/2021 11:59 PM AUTOMATIC LEHR OPERATOR Hospital Encounter [facility] Diagnostic Imaging [address] [place] [id number] Right foot pain Discharge Disposition: Discharge to home or self [...] on file Legal Sex Male 6:48 PM AUTOMATIC LEHR OPERATOR Gender Identity Male 07/21/2019 1:21 AM AUTOMATIC LEHR OPERATOR Sexual Orientation Meléndez 07/21/2019 1: 21 AM AUTOMATIC LEHR OPERATOR documented as of this encounter Medications at [...] mg total) by mouth daily 10/15/2020 11/15/2023 pramipexole (MIRAPEX) 0.25 mg tablet Take 0.25 mg by mouth nightly at bedtime. 04/12/2021 10/24/2021 prazosin (MINIPRESS) 1 mg capsule 1 in the am and 3 at night 08/20/2019 10/24/2021 traZODone (DESYREL) 50 mg tablet Take 50 mg by mouth nightly at bedtime. 10/15/2020 10/24/2021 documented as of this encounter Discharge Disposition Disposition Code Departure Means Destination Discharge to home or self care documented in this encounter Plan of Treatment Not on file documented as of this encounter Procedures Procedure Name Priority Date/Time Associated Diagnosis Comments XR FOOT RIGHT 3 OR MORE VIEWS Schedule Routine, Read Routine (OP Routine) 05/16/2021 1:21 PM AUTOMATIC LEHR OPERATOR Right foot pain documented in this encounter Results * XR Foot Right 3+ Vw (05/16/2021 1:21 PM AUTOMATIC LEHR OPERATOR) Anatomical Region Laterality Modality Lower Extremities, Foot Right Computed Radiography 05/16/2021 4:32 PM AUTOMATIC LEHR OPERATOR Narrative 05/16/2021 4:33 PM AUTOMATIC LEHR OPERATOR EXAM DESCRIPTION: ?XR FOOT RIGHT 3 OR [...] Electronically signed by Emory Whitney D.O. PS: SARAH D: ??05/16/2021 4:33 PM T: ??05/16/2021 4:33 PM Report ID: [id number] Reading Location: ??[id number] Procedure Note Devonte Emory Briceno DO - 05/16/2021 EXAM DESCRIPTION: XR FOOT [...] Emory Whitney D.O. PS: PS Report ID: [id number] Reading Location: [id number] Dorothea Manzo IMG XR PROCEDURES Final Result documented in this encounter Visit Diagnoses Diagnosis Right foot pain Pain in soft tissues of limb documented in this encounter Care Teams Reconciling Clerk Relationship Specialty Start Date End Date Dorothea Cisneros PA [address] [facility] [address] [address] PCP - General 08/11/19 documented as of this encounter
--- OUTSIDE RECORDS SUMMARY | 2024-06-18 19:10 | XMS_ITS | Encounter Summary ---
Author Organization [facility] Healthcare Address [address] [place] [address] Care Team Providers Care Machine Rigger Name Role Phone Dorothea Cisneros Primary Care Provider + Encounter Details Date Type Department Care Team (Late st Contact Info) Description 12/29/2021 Telephone [facility] [address] [place] [address] Gaurav Schilling MD [address] [facility] [address] [address] Social History Tobacco Use Types Packs/Day Years [...] on file Legal Sex Male 6:48 PM SECURITY PROJECT MANAGER Gender Identity Male 07/21/2019 1:21 AM SECURITY PROJECT MANAGER Sexual Orientation Meléndez 07/21/2019 1: 21 AM SECURITY PROJECT MANAGER documented as of this encounter Miscellaneous Notes * Telephone Encounter - Rocío Perry - 12/29/2021 12:30 PM CDT Called to go over home sleep study results. AHI 31.5. Order for auto cpap was sent to [facility]. Lee understood results and will call if he has any questions in the future. documented in this encounter Plan of Treatment Not on file documented as of this encounter Visit Diagnoses Not on filedocumented in this encounter Care Teams Machine Rigger Relationship Specialty Start Date End Date Dorothea Cisneros PA [address] [facility] [address] [place] [address] PCP - General 08/11/19 documented as of this encounter
--- OUTSIDE RECORDS SUMMARY | 2024-06-18 19:10 | XMS_ITS | Encounter Summary ---
Author Organization [facility] Healthcare Address [address] [place] [address] Care Team Providers Care Manager Icu Name Role Phone Dorothea Cisneros Primary Care Provider + Encounter Details Date Type Department Care Team (Late st Contact Info) Description 08/08/2020 Patient Self-Triage [facility] [address] [place] [address] Mychart, Generic Provider [address] [place], [place] [id number] Social History Tobacco Use Types Packs/Day Years Used Date Smoking Tobacco: Former Smokeless Tobacco: Never Alcohol Use Standard Drinks/Week Comments Not Currently 2 (1 standard drink = 0.6 oz pur e alcohol) PHQ-2 Answer Date Recorded PHQ-2 Score 6 07/23/2019 Sex and Gender Information Value Date Recorded Sex Assigned at Not on file Legal Sex Male 6:48 PM FABRIC AND TEXTILE FACTORY WORKER Gender Identity Male 07/21/2019 1:21 AM FABRIC AND TEXTILE FACTORY WORKER Sexual Orientation Meléndez 07/21/2019 1: 21 AM FABRIC AND TEXTILE FACTORY WORKER documented as of this encounter Plan of Treatment Not on file documented as of this encounter Visit Diagnoses Not on filedocumented in this encounter Care Teams Manager Icu Relationship Specialty Start Date End Date Dorothea Cisneros PA [address] [facility] [place] [address] PCP - General 08/11/19 documented as of this encounter
--- OUTSIDE RECORDS SUMMARY | 2024-06-18 19:10 | XMS_ITS | Encounter Summary ---
Author Organization [facility] Address [address] [facility] [address] [place] [address] Care Team Providers Care Electrical Foreman Name Role Phone Dorothea Cisneros Primary Care Provider + Reason for Visit * Reason Onset Date Comments Prior Auth 02/20/2023 INGA James Encounter Details Date Type Department Care Team (Late st Contact Info) Description 02/20/2023 Telephone [facility] Family Medicine [address] [facility] [address] [place] [address] Dorothea Cisneros PA [address] [place] [phone] Prior Auth (INGA James) Social History Tobacco Use Types Packs/Day Years [...] on file Legal Sex Male 6:48 PM MECHANICAL PRESS OPERATOR Gender Identity Male 07/21/2019 1:21 AM MECHANICAL PRESS OPERATOR Sexual Orientation Meléndez 07/21/2019 1: 21 AM MECHANICAL PRESS OPERATOR documented as of this encounter Miscellaneous Notes * Telephone Encounter - Gisele Loza MA - 02/20/2023 2:23 PM CDT Done and waiting on reply. * Telephone Encounter - Gisele Loza MA - 02/20/2023 1:15 PM CDT PA on Wegov[employer] for covermymeds DE [id number] documented in this encounter Plan of Treatment Not on file documented as of this encounter Visit Diagnoses Not on filedocumented in this encounter Care Teams Electrical Foreman Relationship Specialty Start Date End Date Dorothea Cisneros PA [address] [place] [address] PCP - General 08/11/19 documented as of this encounter
--- OUTSIDE RECORDS SUMMARY | 2024-06-18 19:11 | XMS_ITS | Encounter Summary ---
Author Organization [facility] Healthcare Address [address] [place] [address] Care Team Providers Care Section Forest Fire Warden Name Role Phone Dorothea Cisneros Primary Care Provider + Encounter Details Date Type Department Care Team (Late st Contact Info) Description 02/25/2020 10:07 AM CDT - 02/25/2020 10:20 AM CDT Hospital Encounter [facility] Gaurav Schilling MD [address] [facility] [address] [address] Discharge Disposition: Discharge to home or self [...] on file Legal Sex Male 6:48 PM PAPIER MACHE' MOLDER Gender Identity Male 07/21/2019 1:21 AM PAPIER MACHE' MOLDER Sexual Orientation Meléndez 07/21/2019 1: 21 AM PAPIER MACHE' MOLDER documented as of this encounter Medications at Time of Discharge FLUoxetine (PROzac) 40 mg capsuleIndication s:Anxiety Take 1 capsule (40 mg total) by mouth daily 30 capsule 09/12/2019 omeprazole (PriLOSEC) 20 mg capsule Take 1 capsule (20 mg total) by mouth daily azelastine (ASTELIN) 137 mcg (0.1 %) nasal spray Administer 2 sprays into each nostril 2 (two) times a day Use in each nostril as directed 30 mL 1 11/09/2019 1 busPIRone (BUSPAR) 15 mg tabletIndications :Anxiety TAKE 1 TABLET(15 MG) BY MOUTH THREE TIMES DAILY 90 tablet 2 12/06/2019 3 chlordiazePOXIDE (LIBRIUM) 25 mg capsule Take 1 capsule (25 mg total) by mouth 3 (three) times a day as needed for anxiety or withdrawal symptoms 90 capsule 08/03/2019 1 fluticasone propionate (FLONASE) 50 mcg/actuation nasal sprayIndications: Chronic sinusitis, unspecified location SHAKE LIQUID AND USE 2 SPRAYS IN EACH NOSTRIL DAILY 16 g 5 12/10/2019 1 lamoTRIgine (LaMICtal) 25 mg tablet 08/21/2019 1 metoprolol XL (TOPROL-XL) 50 mg extended release tablet Take 1 tablet (50 mg total) by mouth daily MUST MAKE APPT 30 tablet 02/03/2020 1 montelukast (SINGULAIR) 10 mg tabletIndications :Chronic sinusitis, unspecified location TAKE 1 TABLET(10 MG) BY MOUTH EVERY NIGHT 30 tablet 5 12/01/2019 1 prazosin (MINIPRESS) 1 mg capsule 1 in the am and 3 at night 08/20/2019 2 documented as of this encounter Discharge Disposition Disposition Code Departure Means Destination Discharge to home or self care documented in this encounter Plan of Treatment Not on file documented as of this encounter Procedures Procedure Name Priority Date/Time Associated Diagnosis Comments SLEEP LAB/STUDY - RESULT 03/04/2020 12:00 AM CDT documented in this encounter Results * SLEEP LAB/STUDY - RESULT (03/04/2020 12:00 AM CDT) Narrative 03/04/2020 12:00 AM CDT Ordered by an unspecified provider. us Historical Provider Final Res ult documented in this encounter Visit Diagnoses Not on filedocumented in this encounter Care Teams Section Forest Fire Warden Relationship Specialty Start Date End Date Dorothea Cisneros PA [address] [facility] [address] [place] [id number] PCP - General 08/11/19 documented as of this encounter
--- OUTSIDE RECORDS SUMMARY | 2024-06-18 19:11 | XMS_ITS | Encounter Summary ---
Author Organization [facility] Healthcare Address [address] [place] [address] Care Team Providers Care Grain Trader Name Role Phone Dorothea Cisneros Primary Care Provider + Encounter Details Date Type Department Care Team (Late st Contact Info) Description 03/29/2020 10:00 AM CDT - 03/29/2020 11:59 PM CDT Hospital Encounter [facility] Gaurav Schilling MD [address] [facility] [address] [address] Discharge Disposition: Discharge to home or self [...] on file Legal Sex Male 6:48 PM TOOLING MANAGER Gender Identity Male 07/21/2019 1:21 AM TOOLING MANAGER Sexual Orientation Meléndez 07/21/2019 1: 21 AM TOOLING MANAGER documented as of this encounter Last Filed Vital Signs Vital Sign Reading Time Taken Comments Blood Pressure - - Pulse - - Temperature - - Respiratory Rate - - Oxygen Saturation - - Inhaled Oxygen Concentration - - Weight 102.5 kg (226 lb) 03/29/2020 10:11 AM CDT Height 167.6 cm (5' 6 ) 03/29/2020 10:11 AM CDT Body Mass Index 36.48 03/29/2020 10:11 AM CDT documented in this encounter Medications at Time of Discharge [...] on filedocumented in this encounter Care Teams Grain Trader Relationship Specialty Start Date End Date Dorothea Cisneros PA [address] [facility] [address] [place] [address] PCP - General 08/11/19 documented as of this encounter
--- OUTSIDE RECORDS SUMMARY | 2024-06-18 19:12 | XMS_ITS | Encounter Summary ---
Author Organization [facility] Address [address] [facility] [address] [place] [address] Care Team Providers Care Appeals Court Associate Justice Name Role Phone Dorothea Cisneros Primary Care Provider + Reason for Visit * Reason Comments Anxiety lump on L arm, conge stion X 3 months Encounter Details Date Type Department Care Team (Late st Contact Info) Description 06/19/2019 10:30 AM PROJECT LEAD Office Visit [facility] Family Medicine [address] [facility] [address] [place] [address] Diane Harrison PA [address] [facility] [address] [place], [place] [id number] Flu-like symptoms (Primary Dx); Anxiety; Chronic sinusitis, unspecified location; Arm mass, left; Snoring Social History Tobacco Use Types Packs/Day Years Used Date Smoking Tobacco: Every Day Alcohol Use Standard Drinks/Week Comments Yes 0 (1 standard drink = 0.6 oz pur e alcohol) PHQ-2 Answer Date Recorded PHQ-2 Score 4 06/04/2019 Sex and Gender Information Value Date Recorded Sex Assigned at Not on file Legal Sex Male 6:48 PM PROJECT LEAD Gender Identity Male 07/21/2019 1:21 AM PROJECT LEAD Sexual Orientation Meléndez 07/21/2019 1: 21 AM PROJECT LEAD documented as of this encounter Last Filed Vital Signs Vital Sign Reading Time Taken Comments Blood Pressure 142/84 06/19/2019 10:44 AM PROJECT LEAD Pulse 103 06/19/2019 10:44 AM PROJECT LEAD Temperature 37.6 ??C (99.6 ??F) 06/19/2019 1 0:44 AM PROJECT LEAD Respiratory Rate 15 06/19/2019 10:4 4 AM PROJECT LEAD Oxygen Saturation 96% 06/19/2019 10: 44 AM PROJECT LEAD Inhaled Oxygen Concentration - - Weight 123.6 kg (272 lb 6.4 oz) 019 10:44 AM PROJECT LEAD Height 167.6 cm (5' 6 ) 06/19/2019 10:4 4 AM PROJECT LEAD Body Mass Index 43.97 06/19/2019 10:44 AM PROJECT LEAD documented in this encounter Ordered Prescriptions Prescription Sig Dispense Quantity Refills Last Filled Start Date End Date fluticasone propionate (FLONASE) 50 mcg/actuation nasal sprayIndications:C hronic sinusitis, unspecified location Administer 2 sprays into each nostril daily 16 g 5 06/19/2019 0 montelukast (SINGULAIR) 10 mg tabletIndications: Chronic sinusitis, unspecified location Take 1 tablet (10 mg total) by mouth nightly 30 tablet 5 06/19/2019 0 busPIRone (BUSPAR) 7.5 mg tabletIndications: Generalized Anxiety Disorder Take 1 tablet (7.5 mg total) by mouth 2 (two) times a day 60 tablet 06/19/2019 9 documented in this encounter Progress Notes * Diane Harrison PA - 06/19/2019 10:30 AM CST Images from the original note were not included. Visit Date: 06/19/2019 Patient ID: Lee Osborne is a 29 y.o. male. Chief Complaint(s): Anxiety (lump on L arm, congestion X 3 months ) HPI: Patient here today with c/o ongoing congestion for several months. This has been exacerbating his anxiety he thinks. Not sleeping well. Gasping when he is sleeping, waking himself up. Worsening anxiety with panic attacks now, he states. He states He feels on the verge of panic attacks daily now - with hyperventilation, heart racing, disoriented. He is prescribed clonazepam, but has been having touse this almost daily. He states it seems to decrease his worry. He was just recently started on both of these medications. He has been to the ER for panic attacks and was given Xanax and hydroxyzine. Has been treated with antibiotics and a steroid pack as well for the sinuses. Also concerned of lump to the left arm that has been present for about 1-2 months. Does not think it's changed in size. Somewhat painful now. Current Outpatient Medications Medication Sig Dispense Refill ??? clonazePAM (KlonoPIN) 0.5 mg tablet Take one tablet daily prn anxiety 30 tablet 0 ??? FLUoxetine (PROzac) 10 mg capsule Take 1 tablet/capsule (10 mg total) by mouth daily 30 tablet/capsule 1 ??? omeprazole (PriLOSEC) 20 mg capsule Take 20 mg by mouth daily ??? busPIRone (BUSPAR) 7.5 mg tablet Take 1 tablet (7.5 mg total) by mouth 2 (two) times a day 60 tablet 0 ??? fluticasone propionate (FLONASE) 50 mcg/actuation nasal spray Administer 2 sprays into each nostril daily 16 g 5 ??? montelukast (SINGULAIR) 10 mg tablet Take 1 tablet (10 mg total) by mouth nightly 30 tablet 5 No current facility-administered medications for this visit. Allergies as of 06/19/2019 ??? (No Known Allergies) Review of Systems: Review of Systems Constitutional: Negative for chills, fatigue and fever. HENT: Positive for congestion and sore throat. Respiratory: Positive for cough, chest tightness and shortness of breath. Negative for wheezing. Cardiovascular: Negative for chest pain and palpitations. Gastrointestinal: Negative for abdominal pain, diarrhea, nausea and vomiting. Neurological: Negative for dizziness, seizures, syncope and headaches. Psychiatric/Behavioral: Positive for sleep disturbance. The patient is nervous/anxious. Physical Examination: Vitals: 06/19/19 1044 BP: 142/84 BP Location: Left arm Patient Position: Sitting Pulse: 103 Resp: 15 Temp: 37.6 ??C (99.6 ??F) TempSrc: Oral SpO2: 96% Weight: 123.6 kg (272 lb 6.4 oz) Height: 167.6 cm (5' 6 ) Physical Exam Vitals signs and nursing note reviewed. Constitutional: General: He is not in acute distress. Appearance: Normal appearance. HENT: Head: Normocephalic and atraumatic. Right Ear: Hearing, tympanic membrane, ear canal and external ear normal. Left Ear: Hearing, tympanic membrane, ear canal and external ear normal. Nose: Mucosal edema and congestion present. Right Turbinates: Swollen. Left Turbinates: Swollen. Right Sinus: Maxillary sinus tenderness present. Left Sinus: Maxillary sinus tenderness present. Mouth/Throat: Pharynx: Posterior oropharyngeal erythema present. No oropharyngeal exudate. Eyes: Pupils: Pupils are equal, round, and reactive to light. Neck: Musculoskeletal: Full passive range of motion without pain. Cardiovascular: Rate and Rhythm: Normal rate. Heart sounds: Normal heart sounds. Pulmonary: Effort: Pulmonary effort is normal. Breath sounds: Normal breath sounds. No wheezing, rhonchi or rales. Musculoskeletal: Arms: Lymphadenopathy: Cervical: Cervical adenopathy present. Skin: General: Skin is warm and dry. Findings: No rash. Neurological: General: No focal deficit present. Mental Status: He is alert and oriented to person, place, and time. Recent Results (from the past 1 hour(s)) POCT influenza A/B Collection Time: 06/19/19 11:03 AM Result Value Ref Range Rapid Influenza A Ag Negative Negative, Invalid Rapid Influenza B Ag Negative Negative, Invalid Assessment/Plan Diagnoses and all orders for this visit: Flu-like symptoms (R68.89) (Primary) Comments: Flu negative Orders: - POCT influenza A/B Anxiety (F41.9) Comments: Try adding Buspar Orders: - busPIRone (BUSPAR) 7.5 mg tablet; Take 1 tablet (7.5 mg total) by mouth 2 (two) times a day Chronic sinusitis, unspecified location (J32.9) Comments: Add Singulair and Flonase - consider ENT referral. Likely JULIA Orders: - montelukast (SINGULAIR) 10 mg tablet; Take 1 tablet (10 mg total) by mouth nightly - fluticasone propionate (FLONASE) 50 mcg/actuation nasal spray; Administer 2 sprays into each nostril daily - Ambulatory referral to ENT; Future Arm mass, left (R22.32) Comments: Discussed cyst vs. lipoma, likely benign- and pt is self pay - opts for close monitoring for now. Snoring (R06.83) - Ambulatory referral to ENT; Future Return If meds working well, RTC in 6 months, or sooner if worsening. Diane Harrison PA-C ECT LEAD documented in this encounter Plan of Treatment Not on file documented as of this encounter Procedures Procedure Name Priority Date/Time Associated Diagnosis Comments POCT INFLUENZA A/B Routine 06/19/2019 11 :03 AM PROJECT LEAD Flu-like symptoms documented in this encounter Results * POCT influenza A/B (06/19/2019 11:03 AM PROJECT LEAD) Rapid Influenza A Ag Negative Negative, Invalid Rapid Influenza B Ag Negative Negative, Invalid Nasal 06/19/2019 11:0 3 AM PROJECT LEAD Diane XIONG POINT OF CARE TEST ORDER STANLEY Final Result documented in this encounter Visit Diagnoses Diagnosis Flu-like symptoms- Primary Anxiety Anxiety state, unspecified Chronic sinusitis, unspecified location Arm mass, left Snoring Other dyspnea and respiratory abnormality documented in this encounter Discontinued Medications Medication Sig Discontinue Reason Start Date End Da te hydrOXYzine (VISTARIL) 50 mg capsule Take 1 capsule by mouth daily Therapy completed 05/30/2019 06/19/2019 methylPREDNISolone (MEDROL DOSEPACK) 4 mg Dosepack Take as directed on package. Therapy completed 06/12/2019 06/19/2019 documented as of this encounter Care Teams Appeals Court Associate Justice Relationship Specialty Start Date End Date Dorothea Cisneros PA [address] [facility] [address] [place] [id number] PCP - General 05/30/19 08/10/19 documented as of this encounter
--- OUTSIDE RECORDS SUMMARY | 2024-06-18 19:12 | XMS_ITS | Encounter Summary ---
Author Organization [facility] Healthcare Address [address] [place] [address] Care Team Providers Care Computer Systems Security Analyst Name Role Phone Unavailable Primary Care Provider Unavailabl e Encounter Details Date Type Department Care Team (Latest Contact Info) Description 12/25/2012 1:45 PM CDT Hospital Encounter [facility] Camille Phan, PULVERIZER MILL OPERATOR [address] [place] [address] Other malaise and fatigue Social History Tobacco Use Types Packs/Day Years Used Date Smoking Tobacco: Never Assessed Sex and Gender Information Value Date Recorded Sex Assigned at Not on file Legal Sex Male 6:48 PM HEALTH CENTER ASSOCIATE Gender Identity Male 07/21/2019 1:21 AM HEALTH CENTER ASSOCIATE Sexual Orientation Meléndez 07/21/2019 1: 21 AM HEALTH CENTER ASSOCIATE documented as of this encounter Plan of Treatment Not on file documented as of this encounter Procedures Procedure Name Priority Date/Time Associated Diagnosis Comments UA WITH CULTURE REFLEX Routine 12/25/2012 1:48 PM CDT documented in this encounter Results * (ABNORMAL) UA with Culture Reflex (12/25/2012 1:48 PM CDT) Ur Collection Type CLEAN CATCH 12/25/2012 3:04 PM CDT [facility] [employer] HISTORICAL RESULTS Ur Culture Indicated? C&S NOT INDICATED 12/25/2012 3:04 PM CDT [facility] [employer] HISTORICAL RESULTS Urine Color YELLOW YELLOW Urine Clarity CLEAR CLEAR Urine Glucose (UA) NORMAL NORMAL mg/dL Urine Bilirubin NEGATIVE NEGATIVE mg/dl Urine Ketones NEGATIVE NEGATIVE mg/dL Ur Specific Blanco 1.022 1.005 - 1.025 Urine Blood NEGATIVE NEGATIVE mg/dl Urine pH 6.0 5.0 - 8.0 Urine Protein 10(H) NEGATIVE mg/dL Urine Urobilinogen NORMAL NORMAL mg/dL Urine Nitrite NEGATIVE NEGATIVE Ur Leukocyte Esterase NEGATIVE NEGATIVE Benita/ul Ur Microscopic Review Not Indicated 12/25/2012 1:48 PM CDT 12/25/2012 2:58 PM T Narrative [facility] HISTORICAL RESULTS - 12/25/2012 3:04 PM CDT FASTING 12 HOURS ? us Camille Phan NP LAB URINE ORDERABLES Final Result [facility] HISTORICAL RESULTS documented in this encounter Visit Diagnoses Diagnosis Other malaise and fatigue documented in this encounter
--- OUTSIDE RECORDS SUMMARY | 2024-06-18 19:12 | XMS_ITS | Encounter Summary ---
Author Organization [facility] Facility Care Team Providers Care Light Rail Vehicle Operator Name Role Phone Dorothea Cisneros Primary Care Provider + Encounter Details Date Type Department Care Team (Latest Contact Info) Description 06/19/2019 Travel Social History Tobacco Use Types Packs/Day Years Used Date Smoking Tobacco: Every Day Alcohol Use Standard Drinks/Week Comments Yes 0 (1 standard drink = 0.6 oz pur e alcohol) PHQ-2 Answer Date Recorded PHQ-2 Score 4 06/04/2019 Sex and Gender Information Value Date Recorded Sex Assigned at Not on file Legal Sex Male 6:48 PM ENGRAVER HAND [employer] Gender Identity Male 07/21/2019 1:21 AM ENGRAVER [employer] Sexual Orientation Meléndez 07/21/2019 1: 21 AM ENGRAVER [employer] documented as of this encounter Plan of Treatment Not on file documented as of this encounter Visit Diagnoses Not on filedocumented in this encounter Care Teams Light Rail Vehicle Operator Relationship Specialty Start Date End Date Dorothea Cisneros PA [address] [place] [id number] PCP - General 05/30/19 08/10/19 documented as of this encounter
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
--- OUTSIDE RECORDS SUMMARY | 2024-06-18 19:12 | XMS_ITS | Encounter Summary ---
Author Organization [facility] Address [address] [place] [address] Care Team Providers Care Electrical Project Manager Name Role Phone Dorothea Cisneros Primary Care Provider + Reason for Visit * Reason Comments Establish Care Anxiety Encounter Details Date Type Department Care Team (Late st Contact Info) Description 06/04/2019 3:00 PM CUSTOMER SUPPORT CONSULTANT Office Visit [facility] Family Medicine [address] [place] [phone] Dorothea Cisneros PA [address] [place] [phone] Anxiety (Primary Dx); Acute non-recurrent sinusitis, unspecified location Social History Tobacco Use Types Packs/Day Years Used Date Smoking Tobacco: Every Day Alcohol Use Standard Drinks/Week Comments Yes 0 (1 standard drink = 0.6 oz pur e alcohol) PHQ-2 Answer Date Recorded PHQ-2 Score 4 06/04/2019 Sex and Gender Information Value Date Recorded Sex Assigned at Not on file Legal Sex Male 6:48 PM CUSTOMER SUPPORT CONSULTANT Gender Identity Male 07/21/2019 1:21 AM CUSTOMER SUPPORT CONSULTANT Sexual Orientation Meléndez 07/21/2019 1 :21 AM CUSTOMER SUPPORT CONSULTANT documented as of this encounter Last Filed Vital Signs Vital Sign Reading Time Taken Comments Blood Pressure 158/108 06/04/2019 3:12 PM CUSTOMER SUPPORT CONSULTANT Pulse 106 06/04/2019 3:12 PM CUSTOMER SUPPORT CONSULTANT Temperature 36.7 ??C (98.1 ??F) 06/04/2019 3:12 PM CS T Respiratory Rate 16 06/04/2019 3:12 PM CUSTOMER SUPPORT CONSULTANT Oxygen Saturation 97% 06/04/2019 3:12 PM CUSTOMER SUPPORT CONSULTANT Inhaled Oxygen Concentration - - Weight 123.9 kg (273 lb 3.2 oz) 06/04/2019 3:12 PM CUSTOMER SUPPORT CONSULTANT Height 167.6 cm (5' 6 ) 06/04/2019 3:12 PM CUSTOMER SUPPORT CONSULTANT Body Mass Index 44.1 06/04/2019 3:12 PM CUSTOMER SUPPORT CONSULTANT documented in this encounter Ordered Prescriptions Prescription Sig Dispense Quantity Refills Last Filled Start Date End Date clonazePAM (KlonoPIN) 0.5 mg tabletIndications: Anxiety Take one tablet daily prn anxiety 30 tablet 06/04/2019 9 amoxicillin-clavul anate (AUGMENTIN) 875-125 mg per tabletIndications: Acute non-recurrent sinusitis, unspecified location Take 1 tablet by mouth 2 (two) times a day for 3 days 6 tablet 06/04/2019 9 FLUoxetine (PROzac) 10 mg capsuleIndications :Anxiety Take 1 tablet/capsul e (10 mg total) by mouth daily 30 tablet/capsule 1 06/04/2019 0 documented in this encounter Progress Notes * Dorothea Cisneros PA - 06/04/2019 3:00 PM CST Images from the original note were not included. Subjective/Objective Visit date: 06/04/2019 Patient ID: Lee Osborne is a 29 y.o. male. Chief Complaint Chief Complaint Patient presents with ??? Establish Care ??? Anxiety Current Outpatient Medications: ??? amoxicillin-clavulanate (AUGMENTIN) 875-125 mg per tablet, Take 1 tablet by mouth 2 (two) timesa day for 3 days, Disp: 6 tablet, Rfl: 0 ??? hydrOXYzine (VISTARIL) 50 mg capsule, Take 1 capsule by mouth daily, Disp: , Rfl: 0 ??? omeprazole (PriLOSEC) 20 mg capsule, Take 20 mg by mouth daily, Disp: , Rfl: ??? clonazePAM (KlonoPIN) 0.5 mg tablet, Take one tablet daily prn anxiety, Disp: 30 tablet, Rfl: 0 ??? FLUoxetine (PROzac) 10 mg capsule, Take 1 tablet/capsule (10 mg total) by mouth daily, Disp: 30tablet/capsule, Rfl: 1 No Known Allergies HPI Pt presents for ER f/u. Went to [facility] on 05/30 for anxious, increased HR as well as sinus pain and pressure. The anxiety had flared over the past two mos and the sinus sx for about a month. Very congested and had green nasal d/c on the RT side in particular. Had some assoc sinus pressure and HOUSTON. He denied chest pain. Has been having panic attacks where he gets in a cyclical pattern of focusing on my heart rate and breathing to the point he feels he isn't getting enough air and heart goes too fast and he gets lightheaded and worries he will pass out. Hasn't been able to sleep. ECG was normal. HR was 86 at the time of the tracing. BP went up to 168/106 and had gone down to 125/89 upon discharge. He was given 1mg xanax to help him. Discharged him on augmentin and vistaril. He's been taking both of these meds. Pt states his sinus symptoms have not improved a great deal despite the augmentin. Using vicks severe sinus spray that he uses most days. The amount of green rhinorrhea has diminished. The pressure has sl improved and he admits the HOUSTON's aren't as bad. The atarax hasn't helped the anxiety at all. He's tried zoloft, seroquel, lexapro. He thinks the zoloft did help but he's not had insurance at all. Lives with male partner. Not working or going to school. Supported by partner. . occ smokes marijuana. Anxiety runs in the family. He doesn't leave thehouse much. PHQ Screening Over the last 2 weeks, how often have you been bothered by any of the following problems? Little Interest or Pleasure in Doing Things: More than half the days Feeling Down, Depressed, or Hopeless: More than half the days PHQ-2 Total Score (If total score is 3 or more points, staff should administer the PHQ-9): 4 Over the past 2 weeks, how often have you been bothered by any of the following problems? Little Interest or Pleasure in Doing Things: More than half the days Feeling Down, Depressed, or Hopeless: More than half the days Trouble Falling or Staying Asleep, or Sleeping too Much: Nearly every day Feeling Tired or Having Little Energy: Nearly every day Poor Appetite or Overeating: More than half the days Feeling Bad About Yourself - or That [...] Some Way: Several days PHQ-9 Total Score: 22 Review of Systems HENT: Positive for congestion, rhinorrhea, sinus pressure and sinus pain. See HPI Respiratory: Positive for shortness of breath (when anxious). Negative for cough. Cardiovascular: Positive for palpitations (see HPI). Negative for chest pain. Neurological: Negative for dizziness. Psychiatric/Behavioral: Positive for dysphoric mood and sleep disturbance. Negative for suicidal ideas. The patient is nervous/anxious. See HPI Vitals BP (!) 158/108 (BP Location: Left arm, Patient Position: Sitting) Pulse 106 Temp 36.7 ??C (98.1 ??F) Resp 16 Ht 167.6 cm (5' 6 ) Wt 123.9 kg (273 lb 3.2 oz) SpO2 97% BMI 44.10 kg/m?? Physical Exam Constitutional: General: He is not in acute distress. Appearance: He is obese. HENT: Mouth/Throat: Mouth: Mucous membranes are moist. Pharynx: Oropharynx is clear. Eyes: Conjunctiva/sclera: Conjunctivae normal. Cardiovascular: Rate and Rhythm: Normal rate and regular rhythm. Heart sounds: Normal heart sounds. Pulmonary: Effort: Pulmonary effort is normal. Breath sounds: Normal breath sounds. Lymphadenopathy: Cervical: No cervical adenopathy. Neurological: General: No focal deficit present. Mental Status: He is alert and oriented to person, place, and time. Psychiatric: Attention and Perception: Attention normal. Mood and Affect: Mood normal. Speech: Speech normal. Behavior: Behavior normal. Thought Content: Thought content normal. Thought content does not include suicidal ideation. Cognition and Memory: Cognition normal. Diagnoses and all orders for this visit: Anxiety (Primary) Comments: start prozac once daily. clonazepam if severe anxiety. allow 2-3 weeks for effect. ok to call withupdate and we can increase dose; no insurance. Orders: - FLUoxetine (PROzac) 10 mg capsule; Take 1 tablet/capsule (10 mg total) by mouth daily - clonazePAM (KlonoPIN) 0.5 mg tablet; Take one tablet daily prn anxiety Acute non-recurrent sinusitis, unspecified location Comments: extend abx to the full 10d course. consider flonase. f/u if sx persist Orders: - amoxicillin-clavulanate (AUGMENTIN) 875-125 mg per tablet; Take 1 tablet by mouth 2 (two) times aday for 3 days I gave pt a card to get his BP checked outside the office and call in numbers in two weeks. Return in about 4 weeks (around 07/02/2019), or but ok to call since no insurance. Dorothea Cisneros PA-C OMER SUPPORT CONSULTANT documented in this encounter Plan of Treatment Not on file documented as of this encounter Visit Diagnoses Diagnosis Anxiety- Primary Anxiety state, unspecified Acute non-recurrent sinusitis, unspecified location documented in this encounter Discontinued Medications Medication Sig Discontinue Reason Start Date End Da te amoxicillin-clavulanate (AUGMENTIN) 875-125 mg per tablet 875 mg Reorder 05/30/2019 06/04/2019 documented as of this encounter Historical Medications * This list may reflect changes made after this encounter. omeprazole (PriLOSEC) 20 mg capsule Take 1 capsule (20 mg total) by mouth daily amoxicillin-clavu lanate (AUGMENTIN) 875-125 mg per tablet 875 mg 05/30/2019 06/04/2019 hydrOXYzine (VISTARIL) 50 mg capsule Take 1 capsule by mouth daily 0 05/30/2019 06/19/2019 added in this encounter Care Teams Electrical Project Manager Relationship Specialty Start Date End Date Dorothea Cisneros PA [address] [place] [address] [place] [id number] PCP - General 11/30/19 2/10/20 documented as of this encounter
--- OUTSIDE RECORDS SUMMARY | 2024-06-18 19:12 | XMS_ITS | Encounter Summary ---
Author Organization [facility] Healthcare Address [address] [place] [address] Care Team Providers Care Shake Loader Name Role Phone Unavailable Primary Care Provider Unavailabl e Encounter Details Date Type Department Care Team (Latest Contact Info) Description 01/26/2013 8:45 AM CDT Hospital Encounter [facility] OP Jeet Hanley MD [address] [facility] [address] [place] [address] Other malaise and fatigue; Benign essential hypertension; Obesity Social History Tobacco Use Types Packs/Day Years Used Date Smoking Tobacco: Never Assessed Sex and Gender Information Value Date Recorded Sex Assigned at Not on file Legal Sex Male 6:48 PM CITY COMPTROLLER Gender Identity Male 07/21/2019 1:21 AM CITY COMPTROLLER Sexual Orientation Meléndez 07/21/2019 1: 21 AM CITY COMPTROLLER documented as of this encounter Plan of Treatment Not on file documented as of this encounter Procedures Procedure Name Priority Date/Time Associated Diagnosis Comments TESTOSTERONE, JESSICA&TOT, MALE>=14Y Routine 01/26/2013 9:00 AM CDT CBC WITH AUTO DIFFERENTIAL Routine 01/26/2013 9:00 AM CDT T3, FREE Routine 01/26/2013 9:00 AM CDT TSH Routine 01/26/2013 9:00 AM CDT T4, FREE Routine 01/26/2013 9:00 AM CDT VITAMIN B1 Routine 01/26/2013 9:00 AM CDT VITAMIN B6 Routine 01/26/2013 9:00 AM CDT COMPREHENSIVE METABOLIC PANEL Routine 01/26/2013 9:00 AM CDT ALBUMIN, RANDOM URINE WITHOUT CREATININE Routine 01/26/2013 8:47 AM CDT documented in this encounter Results * Vitamin B1 (01/26/2013 9:00 AM CDT) Pathologist [facility] Whole Bld Vitamin B1 166 70 - 180 nmol/L 01/28/2013 7:40 AM CDT [facility] HISTORICAL RESULTS Comment: INTERPRETIVE INFORMATION: Vitamin B1, Whole Blood ?? The concentration of thiamine diphosphate (TDP), the ?? primary active form of vitamin B1, is measured in this ?? assay. Approximately 90% of vitamin B1 present in whole ?? blood is TDP. Thiamine and thiamine monophosphate, which ?? comprise the remaining 10%, are not measured. ?? Test developed and characteristics determined by [facility] ?? Laboratories. See Compliance Statement B: [employer] ?? Performed by [facility], ?? [address] [place] [id number] ?? [email or web address], Prem Cabrera MD, Lab. Director ?? 01/26/2013 9:00 AM CDT 01/26/2013 9:21 AM CDT us Jeet Hanley MD LAB BLOOD ORDERABLES Final Resul t [facility] HISTORICAL RESULTS * Vitamin B6 (01/26/2013 9:00 AM CDT) [facility] Vitamin B6 37.1 20.0 - 125.0 nmol/L 01/28/2013 8:24 AM CDT [facility] HISTORICAL RESULTS Comment: INTERPRETIVE INFORMATION: Vitamin B6 (Pyridoxal 5-Phosphate) ?? Pyridoxal 5'-phosphate measured in a specimen collected ?? following an 8-hour or overnight fast accurately indicates ?? vitamin B6 nutritional status. Non-fasting specimen ?? concentration reflects recent vitamin intake. ?? Test developed and characteristics determined by [facility] ?? Laboratories. See Compliance Statement B: [employer]/ ?? Performed by [facility], ?? [address] [facility] [place] [address] ?? [email or web address], Prem Cabrera MD, Lab. Director ?? 01/26/2013 9:00 AM CDT 01/26/2013 9:21 AM CDT us Jeet Hanley MD LAB BLOOD ORDERABLES Final Resul t [facility] HISTORICAL RESULTS * (ABNORMAL) CBC with auto differential (01/26/2013 9:00 AM CDT) WBC 8.2 4.6 - 10.2 x10 3/ul 01/26/2013 9:27 AM CDT [facility] HISTORICAL RESULTS RBC 4.63 4.11 - 5.71 x10 6/ul 01/26/2013 9:27 AM CDT [facility] HISTORICAL RESULTS Hemoglobin 14.7 13.0 - 17.0 g/dl 01/26/2013 9:27 AM CDT [facility] HISTORICAL RESULTS Hct 41.8 38.2 - 48.5 % 01/26/2013 9:27 AM T [facility] HISTORICAL RESULTS MCV 90.3 80.0 - 97.0 fl 01/26/2013 9:27 AM T [facility] HISTORICAL RESULTS MCH 31.7(H) 27.0 - 31.2 pg 01/26/2013 9:27 AM CDT [facility] HISTORICAL RESULTS MCHC 35.2 31.8 - 35.4 g/dl 01/26/2013 9:27 AM CDT [facility] HISTORICAL RESULTS RDW 12.4 11.6 - 14.8 % 01/26/2013 9:27 AM CDT [facility] HISTORICAL RESULTS Plt Count 263 124 - 400 x10 3/ul 01/26/2013 9:27 AM T [facility] HISTORICAL RESULTS MPV 8.7 7.4 - 10.4 fl Differential Method AUTOMATED DIFF --------- -- Neut % 51.4 37.0 - 85.0 % Immature Gran % 0.1 0.0 - 3.0 % Lymph % 38.0 5.0 - 45.0 % [place] % 6.8 3.0 - 15.0 % Eos % 2.7 0.0 - 7.0 % Baso % 1.0 0.0 - 2.0 % ABSOLUTE COUNTS ABSOLUTE COUNTS --------- -- Absolute Neuts (auto) 4.2 1.7 - 8.7 x10 3/ul Immature Gran # 0.0 0.0 - 0.3 x10 3/ul Absolute Lymphs (auto) 3.1 0.2 - 4.6 x10 3/ul Absolute Monos (auto) 0.6 0.1 - 1.5 x10 3/ul Absolute Eos (auto) 0.2 0.0 - 0.7 x10 3/ul Absolute Basos (auto) 0.1 0.0 - 0.2 x10 3/ul 01/26/2013 9:00 AM CDT 01/26/2013 9:21 AM CDT us Jeet Hanley MD LAB BLOOD ORDERABLES Final Resul t Performing Organization Address [facility] Phone Number [facility] HISTORICAL RESULTS * T3, free (01/26/2013 9:00 AM CDT) Free T3 5.22 3.10 - 6.80 pmol/L 01/26/2013 11:04 AM CDT [facility] HISTORICAL RESULTS 01/26/2013 9:00 AM CDT 01/26/2013 9:21 AM CDT us Jeet Hanley MD LAB BLOOD ORDERABLES Final Resul t Performing Organization Address [facility] Number [facility] HISTORICAL RESULTS * T4, free (01/26/2013 9:00 AM CDT) Free T4 1.21 0.93 - 1.70 ng/dL 01/26/2013 9:56 AM CDT [facility] HISTORICAL RESULTS 01/26/2013 9:00 AM CDT 01/26/2013 9:21 AM CDT us Jeet Hanley MD LAB BLOOD ORDERABLES Final Resul t Performing Organization Address [facility] de Phone Number [facility] HISTORICAL RESULTS * TSH (01/26/2013 9:00 AM CDT) TSH 2.75 0.27 - 4.20 uIU/mL 01/26/2013 9:56 AM CDT [facility] HISTORICAL RESULTS 01/26/2013 9:00 AM CDT 01/26/2013 9:21 AM CDT us Jeet Hanley MD LAB BLOOD ORDERABLES Final Resul t Performing Organization Address [facility] de Phone Number [facility] HISTORICAL RESULTS * (ABNORMAL) Testosterone, jessica&tot, male>=14y (01/26/2013 9:00 AM CDT) Testosterone Level 167(L) 249 - 836 ng/dL 01/26/2013 11:04 AM T [facility] HISTORICAL RESULTS Sex Hormone Bind Glob 16 16 - 56 nmol/L 01/26/2013 11:04 AM T [facility] HISTORICAL RESULTS Free Testosterone Indx 36.2 35.0 - 92.6 % 01/26/2013 11:04 AM T [facility] HISTORICAL RESULTS 01/26/2013 9:00 AM CDT 01/26/2013 9:21 AM CDT us Jeet Hanley MD LAB BLOOD ORDERABLES Final Resul t [facility] HISTORICAL RESULTS * (ABNORMAL) Comprehensive metabolic panel (01/26/2013 9:00 AM CDT) Sodium 140 135 - 145 mmol/L Potassium 3.1(L) 3.3 - 5.1 mmol/L Chloride 104 96 - 108 mmol/L Carbon Dioxide 25 22 - 32 mmol/L Anion Gap 11 Glucose 99 70 - 110 mg/dL BUN 12 6 - 20 mg/dL Creatinine 0.9 0.5 - 1.3 mg/dL Kidney Disease Stage > 90 mL/MIN Comment: NOTE; ??The GFR is an estimated value using the creatinine, sex, age, and race of the patient. THE ESTIMATED GFR IS VALIDATED FOR AGES 18-70 YEARS STAGE ?mL/Min ?DESCRIPTION ??1 ?90 mL/min or more ?Normal or elevated GFR ??2 ? 60-89 mL/min ?Mildly decreased GFR ??3 ? 30-59 mL/min ?Moderately decreased GFR ??4 ? 15-29 mL/min ?Severely decreased GFR ??5 ? <15 mL/min ? Kidney failure or on dialysis @ Calcium 2.27 2.15 - 2.55 mmol/L Total Protein 7.1 6.4 - 8.4 g/dL Albumin 4.5 3.5 - 5.2 g/dL Globulin 2.6 2.3 - 3.5 gm/dL Albumin/Globulin Ratio 1.7 1.1 - 1.8 01/26/2013 9:51 AM [facility] Total Bilirubin 0.1 0.0 - 1.2 mg/dL 01/26/2013 9:51 AM [facility] RES[facility] AST 15 0 - 38 U/L 01/26/2013 9:51 AM [facility]IST[facility] RES[facility] ALT 17 0 - 41 U/L 01/26/2013 9:51 AM [facility]IST[facility]ICAL RESULTS Alkaline Phosphatase 115 40 - 129 U/L 01/26/2013 9:51 AM [facility]IST[facility] RESULTS 01/26/2013 9:00 AM CDT 01/26/2013 9:21 AM CDT us Jeet Hanley MD LAB BLOOD ORDERABLES Final Resul t Performing Organization Address [facility]/ZIP Co de Phone Number [facility] HISTORICAL RESULTS * Microalbumin, urine, random (01/26/2013 8:47 AM CDT) Ur Random Creatinine 36.0 mg/dL 01/26/2013 10:46 AM CDT [facility] HISTORICAL RESULTS Comment: Reference Range First morning urine: Males 39 - 259 mg/dLRandom Specimen: ??No reference ranges U Random Total Protein 4 0 - 12 mg/dL 01/26/2013 10:46 AM CDT [facility] HISTORICAL RESULTS Ur Random Microalbumin < 12.0 0.0 - 19.9 mg/L 01/26/2013 10:57 AM T [facility] HISTORICAL RESULTS Comment: Microalbumin is <12. Microalb/creat will not be calculated English Diabetes Association Guidelines Microalbuminuria: 30-300 ug albumin /mg creatinine Clinical Albuminuria: >300 ug albumin /mg creatinine 01/26/2013 8:47 AM CDT 01/26/2013 9:45 AM CDT Narrative [facility] HISTORICAL RESULTS - 01/26/2013 10:57 AM CDT us Jeet Hanley MD LAB URINE ORDERABLES Final Resul t Performing Organization Address [facility]/ZIP Co de Phone Number [facility] HISTORICAL RESULTS documented in this encounter Visit Diagnoses Diagnosis Other malaise and fatigue Benign essential hypertension Essential hypertension, benign Obesity Obesity, unspecified documented in this encounter
--- OUTSIDE RECORDS SUMMARY | 2024-06-18 19:12 | XMS_ITS | Encounter Summary ---
Author Organization [facility] Healthcare Address [address] [place] [address] Care Team Providers Care Ordnance Engineer Name Role Phone Dorothea Cisneros Primary Care Provider + Encounter Details Date Type Department Care Team (Late st Contact Info) Description 07/22/2019 2:38 AM MIX HOUSE TENDER - 07/22/2019 5:13 AM MIX HOUSE TENDER Hospital Encounter [facility] Emergency Department [address] [place] [address] Unknown, Charley Roman MD [facility] [place] [address] Discharge Disposition: Discharge to home or self care Social History Tobacco Use Types Packs/Day Years Used Date Smoking Tobacco: Every Day Smokeless Tobacco: Never Comments:vapes Alcohol Use Standard Drinks/Week Comments Yes 2 (1 standard drink = 0.6 oz pur e alcohol) PHQ-2 Answer Date Recorded PHQ-2 Score 6 07/23/2019 Sex and Gender Information Value Date Recorded Sex Assigned at Not on file Legal Sex Male 6:48 PM MIX HOUSE TENDER Gender Identity Male 07/21/2019 1:21 AM MIX HOUSE TENDER Sexual Orientation Meléndez 07/21/2019 1: 21 AM MIX HOUSE TENDER documented as of this encounter Last Filed Vital Signs Vital Sign Reading Time Taken Comments Blood Pressure 141/86 07/22/2019 2:39 AM MIX HOUSE TENDER Pulse 77 07/22/2019 2:39 AM MIX HOUSE TENDER Temperature 36.9 ??C (98.5 ??F) 07/22/2019 2:39 AM CS T Respiratory Rate - - Oxygen Saturation 99% 07/22/2019 2:39 AM MIX HOUSE TENDER Inhaled Oxygen Concentration - - Weight 124.1 kg (273 lb 9.5 oz) 07/22/2019 2:39 AM MIX HOUSE TENDER Height 167.6 cm (5' 6 ) 07/22/2019 2:39 AM MIX HOUSE TENDER Body Mass Index 44.16 07/22/2019 2:39 AM MIX HOUSE TENDER documented in this encounter Medications at Time of Discharge omeprazole (PriLOSEC) 20 mg capsule Take 1 capsule (20 mg total) by mouth daily busPIRone (BUSPAR) 7.5 mg tabletIndications :Generalized Anxiety Disorder Take 1 tablet (7.5 mg total) by mouth 2 (two) times a day 60 tablet 06/22/2019 0 chlordiazePOXIDE (LIBRIUM) 25 mg capsule Take 25 mg by mouth as needed 07/22/2019 0 clonazePAM (KlonoPIN) 0.5 mg tabletIndications :Anxiety TAKE 1 TABLET BY MOUTH TWICE DAILY NEEDED FOR ANXIETY 60 tablet 1 07/20/2019 0 FLUoxetine (PROzac) 40 mg capsuleIndication s:Anxiety Take 1 capsule (40 mg total) by mouth daily 30 capsule 07/20/2019 0 fluticasone propionate (FLONASE) 50 mcg/actuation nasal sprayIndications: Chronic sinusitis, unspecified location Administer 2 sprays into each nostril daily 16 g 5 06/19/2019 0 loratadine-pseudo ephedrine (CLARITIN-D 24-hour) 10-240 mg per 24 hr tablet Take 1 tablet by mouth daily 30 tablet 07/08/2019 0 metoprolol XL (TOPROL-XL) 25 mg 24 hr tablet Take 1 tablet (25 mg total) by mouth daily 30 tablet 07/14/2019 0 montelukast (SINGULAIR) 10 mg tabletIndications :Chronic sinusitis, unspecified location Take 1 tablet (10 mg total) by mouth nightly 30 tablet 5 06/19/2019 0 documented as of this encounter Discharge Disposition Disposition Code Departure Means Destination Discharge to home or self care documented in this encounter Plan of Treatment Not on file documented as of this encounter Visit Diagnoses Not on filedocumented in this encounter Care Teams Ordnance Engineer Relationship Specialty Start Date End Date Dorothea Cisneros PA [address] [place] [address] [place] [id number] PCP - General 05/30/19 08/10/19 documented as of this encounter
--- OUTSIDE RECORDS SUMMARY | 2024-06-18 19:12 | XMS_ITS | Encounter Summary ---
Author Organization [facility] Address [address] [place] [address] Care Team Providers Care Sales Representative Groceries Name Role Phone Dorothea Cisneros Primary Care Provider + Reason for Visit * Reason Comments Nasal Congestion sinus congestion per sists, no fever Encounter Details Date Type Department Care Team (Late st Contact Info) Description 07/08/2019 9:30 AM SAMPLE ROOM SUPERVISOR Office Visit [facility] Family Medicine [address] [place] [address] Dorothea Cisneros PA [address] [place] [id number] Acute recurrent sinusitis, unspecified location (Primary Dx); Anxiety Social History Tobacco Use Types Packs/Day Years Used Date Smoking Tobacco: Every Day Smokeless Tobacco: Never Comments:vapes Alcohol Use Standard Drinks/Week Comments Yes 2 (1 standard drink = 0.6 oz pur e alcohol) PHQ-2 Answer Date Recorded PHQ-2 Score 4 06/04/2019 Sex and Gender Information Value Date Recorded Sex Assigned at Not on file Legal Sex Male 6:48 PM SAMPLE ROOM SUPERVISOR Gender Identity Male 07/21/2019 1:21 AM SAMPLE ROOM SUPERVISOR Sexual Orientation Meléndez 07/21/2019 1: 21 AM SAMPLE ROOM SUPERVISOR documented as of this encounter Last Filed Vital Signs Vital Sign Reading Time Taken Comments Blood Pressure 140/82 07/08/2019 9:37 AM SAMPLE ROOM SUPERVISOR Pulse 95 07/08/2019 9:37 AM SAMPLE ROOM SUPERVISOR Temperature 37 ??C (98.6 ??F) 07/08/2019 9:37 AM SAMPLE ROOM SUPERVISOR Respiratory Rate 20 07/08/2019 9:37 AM SAMPLE ROOM SUPERVISOR Oxygen Saturation 96% 07/08/2019 9:37 AM SAMPLE ROOM SUPERVISOR Inhaled Oxygen Concentration - - Weight 127.5 kg (281 lb) 07/08/2019 9:37 AM SAMPLE ROOM SUPERVISOR Height 167.6 cm (5' 6 ) 07/08/2019 9:37 AM SAMPLE ROOM SUPERVISOR Body Mass Index 45.35 07/08/2019 9:37 AM SAMPLE ROOM SUPERVISOR documented in this encounter Ordered Prescriptions Prescription Sig Dispense Quantity Refills Last Filled Start Date End Date loratadine-pseudoe phedrine (CLARITIN-D 24-hour) 10-240 mg per 24 hr tablet Take 1 tablet by mouth daily 30 tablet 07/08/2019 0 FLUoxetine (PROzac) 20 mg capsuleIndications :Anxiety Take 1 capsule (20 mg total) by mouth daily 30 capsule 07/08/2019 0 doxycycline (VIBRAMYCIN) 100 mg capsuleIndications :Acute recurrent sinusitis, unspecified location Take 1 tablet/capsul e (100 mg total) by mouth 2 (two) times a day for 10 days 20 tablet/capsule 07/08/2019 0 documented in this encounter Progress Notes * Dorothea Cisneros PA - 07/08/2019 9:30 AM CST Images from the original note were not included. Subjective/Objective Visit date: 07/08/2019 Patient ID: Lee Osborne is a 29 y.o. male. Chief Complaint Chief Complaint Patient presents with ??? Nasal Congestion sinus congestion persists, no fever Current Outpatient Medications: ??? busPIRone (BUSPAR) 7.5 mg tablet, Take 1 tablet (7.5 mg total) by mouth 2 (two) times a day, Disp: 60 tablet, Rfl: 0 ??? clonazePAM (KlonoPIN) 0.5 mg tablet, TAKE 1 TABLET BY MOUTH DAILY NEEDED FOR ANXIETY, Disp: 30 tablet, Rfl: 3 ??? FLUoxetine (PROzac) 20 mg capsule, Take 1 capsule (20 mg total) by mouth daily, Disp: 30 capsule, Rfl: 0 ??? fluticasone propionate (FLONASE) 50 mcg/actuation nasal spray, Administer 2 sprays into each nostril daily, Disp: 16 g, Rfl: 5 ??? montelukast (SINGULAIR) 10 mg tablet, Take 1 tablet (10 mg total) by mouth nightly, Disp: 30 tablet, Rfl: 5 ??? omeprazole (PriLOSEC) 20 mg capsule, Take 20 mg by mouth daily, Disp: , Rfl: ??? doxycycline (VIBRAMYCIN) 100 mg capsule, Take 1 tablet/capsule (100 mg total) by mouth 2 (two) times a day for 10 days, Disp: 20 tablet/capsule, Rfl: 0 ??? loratadine-pseudoephedrine (CLARITIN-D 24-hour) 10-240 mg per 24 hr tablet, Take 1 tablet by mouth daily, Disp: 30 tablet, Rfl: 0 No Known Allergies HPI Initially saw pt on 06/04 after he had went to the ER on 05/30 where he had received an Rx for augmentin for sinusitis. We added a steroid pack when he called and was still c/o symptoms. I then extended that script a few days to allow him a full 10d course. Then was seen on 06/19 for persistent symptoms. singulair was added as well as flonase. A referral was placed for ENT but due to insurance reasons it was wi'ed. The symptoms are the same and worse on the right side of his nose. He is not using any nasal decongestants but was using sinex and stopped it after I suggested this was not a good idea due to rebound congestion. occ takes benadryl. He thinks there has been only minor improvement on the flonase or singulair but has a lot of pressure. Uses a vicks steam thing and a lavage he uses. He really doesn't have any rhinorrhea; only occas bleeding. Has occas headaches. No fever but has a mild cough. His chest congestion is a bit better now that he's stopped smoking cigs; he does use a Juul. Anxiety: Pt is on the prozac and now on the buspar BID. Also using the clonazepam about once a day.Thinks the prozac has helped. He would like to increase the dosage on this. Is looking for state aid until he can get a job; worried his anxiety is too bad to work. Lives with male partner. Seeing a kira landaverde at [place]. Review of Systems Constitutional: Negative for fever. HENT: Positive for congestion, postnasal drip and sinus pressure. Negative for sore throat. See HPI Respiratory: Positive for cough (see HPI). Negative for shortness of breath. Psychiatric/Behavioral: Positive for sleep disturbance (snores and congestion bothers him despite trying breathe right strip). The patient is nervous/anxious (see HPI). Vitals BP 140/82 (BP Location: Left arm, Patient Position: Sitting) Pulse 95 Temp 37 ??C (98.6 ??F) Resp 20 Ht 167.6 cm (5' 6 ) Wt 127.5 kg (281 lb) SpO2 96% BMI 45.35 kg/m?? Physical Exam Constitutional: General: He is not in acute distress. Appearance: Normal appearance. He is obese. HENT: Right Ear: Tympanic membrane normal. Left Ear: Tympanic membrane normal. Nose: Right Turbinates: Swollen. Mouth/Throat: Mouth: Mucous membranes are moist. Pharynx: Oropharynx is clear. No posterior oropharyngeal erythema. Eyes: Conjunctiva/sclera: Conjunctivae normal. Neck: Musculoskeletal: Neck supple. Cardiovascular: Rate and Rhythm: Normal rate and regular rhythm. Heart sounds: Normal heart sounds. Pulmonary: Effort: Pulmonary effort is normal. Breath sounds: Normal breath sounds. Lymphadenopathy: Cervical: No cervical adenopathy. Neurological: Mental Status: He is alert. Psychiatric: Attention and Perception: Attention normal. Mood and Affect: Mood normal. Speech: Speech normal. Behavior: Behavior normal. Thought Content: Thought content normal. Judgment: Judgment normal. Diagnoses and all orders for this visit: Acute recurrent sinusitis, unspecified location (Primary) Comments: add claritin D, doxy for 10d, cont flonase, singulair and lavage. watch BP on the decongestant although he is very nervous at appts. Orders: - doxycycline (VIBRAMYCIN) 100 mg capsule; Take 1 tablet/capsule (100 mg total) by mouth 2 (two) times a day for 10 days Anxiety Comments: improved. increase prozac to 20mg, continue buspar. Klonopin for prn use only. not to be used with any alcohol. incr exercise, cont counseling Orders: - FLUoxetine (PROzac) 20 mg capsule; Take 1 capsule (20 mg total) by mouth daily Other orders - loratadine-pseudoephedrine (CLARITIN-D 24-hour) 10-240 mg per 24 hr tablet; Take 1 tablet by mouth daily Since pt has no insurance I asked him to join my chart so we can keep in touch. Dorothea Cisneros PA-C LE ROOM SUPERVISOR documented in this encounter Plan of Treatment Not on file documented as of this encounter Visit Diagnoses Diagnosis Acute recurrent sinusitis, unspecified location- Primary Anxiety Anxiety state, unspecified documented in this encounter Discontinued Medications Medication Sig Discontinue Reason Start Date End Da te FLUoxetine (PROzac) 10 mg capsuleIndications:Anxiet y Take 1 tablet/capsule (10 mg total) by mouth daily Reorder 06/04/2019 07/08/2019 documented as of this encounter Care Teams Sales Representative Groceries Relationship Specialty Start Date End Date Dorothea Cisneros PA [address] [place] [id number] PCP - General 05/30/19 08/10/19 documented as of this encounter
--- OUTSIDE RECORDS SUMMARY | 2024-06-18 19:12 | XMS_ITS | Encounter Summary ---
Author Organization [facility] Healthcare Address [address] [place] [address] Care Team Providers Care Stock Control Clerk Name Role Phone Dorothea Cisneros Primary Care Provider + Encounter Details Date Type Department Care Team (Late st Contact Info) Description 07/12/2019 4:39 PM SUPERVISOR CLEANING AND ANNEALING - 07/12/2019 4:59 PM SUPERVISOR CLEANING AND ANNEALING [facility] [address] [place] [address] Unknown, Notinfile Discharge Disposition: Left without being seen Social History Tobacco Use Types Packs/Day Years Used Date Smoking Tobacco: Every Day Smokeless Tobacco: Never Comments:vapes Alcohol Use Standard Drinks/Week Comments Yes 2 (1 standard drink = 0.6 oz pur e alcohol) PHQ-2 Answer Date Recorded PHQ-2 Score 4 06/04/2019 Sex and Gender Information Value Date Recorded Sex Assigned at Not on file Legal Sex Male 6:48 PM SUPERVISOR CLEANING AND ANNEALING Gender Identity Male 07/21/2019 1:21 AM SUPERVISOR CLEANING AND ANNEALING Sexual Orientation Meléndez 07/21/2019 1: 21 AM SUPERVISOR CLEANING AND ANNEALING documented as of this encounter Medications at Time of Discharge omeprazole (PriLOSEC) 20 mg capsule Take 1 capsule (20 mg total) by mouth daily doxycycline (VIBRAMYCIN) 100 mg capsuleIndication s:Acute recurrent sinusitis, unspecified location Take 1 tablet/capsule (100 mg total) by mouth 2 (two) times a day for 10 days 20 tablet/capsule 07/08/2019 0 busPIRone (BUSPAR) 7.5 mg tabletIndications :Generalized Anxiety Disorder Take 1 tablet (7.5 mg total) by mouth 2 (two) times a day 60 tablet 06/22/2019 0 clonazePAM (KlonoPIN) 0.5 mg tabletIndications :Anxiety TAKE 1 TABLET BY MOUTH DAILY NEEDED FOR ANXIETY 30 tablet 3 06/30/2019 0 FLUoxetine (PROzac) 20 mg capsuleIndication s:Anxiety Take 1 capsule (20 mg total) by mouth daily 30 capsule 07/08/2019 0 fluticasone propionate (FLONASE) 50 mcg/actuation nasal sprayIndications: Chronic sinusitis, unspecified location Administer 2 sprays into each nostril daily 16 g 5 06/19/2019 0 loratadine-pseudo ephedrine (CLARITIN-D 24-hour) 10-240 mg per 24 hr tablet Take 1 tablet by mouth daily 30 tablet 07/08/2019 0 montelukast (SINGULAIR) 10 mg tabletIndications :Chronic sinusitis, unspecified location Take 1 tablet (10 mg total) by mouth nightly 30 tablet 5 06/19/2019 0 documented as of this encounter Discharge Disposition Disposition Code Departure Means Destination Left without being seen documented in this encounter Plan of Treatment Not on file documented as of this encounter Visit Diagnoses Not on filedocumented in this encounter Care Teams Stock Control Clerk Relationship Specialty Start Date End Date Dorothea Cisneros PA [address] [place] [place] [id number] PCP - General 05/30/19 08/10/19 documented as of this encounter
--- OUTSIDE RECORDS SUMMARY | 2024-06-18 19:12 | XMS_ITS | Encounter Summary ---
Author Organization [facility] Address [address] [place] [address] Care Team Providers Care Hot Tar Roofer Name Role Phone Dorothea Cisneros Primary Care Provider + Reason for Visit * Reason Comments Back Pain Encounter Details Date Type Department Care Team (Late st Contact Info) Description 08/24/2019 9:45 AM PANTRY CHEF Office Visit [facility] Family Medicine [address] [facility] [place] [phone] [place] [address] [place] [phone] Chronic right-sided low back pain without sciatica (Primary Dx) Social History Tobacco Use Types Packs/Day Years Used Date Smoking Tobacco: Former Smokeless Tobacco: Never Alcohol Use Standard Drinks/Week Comments Not Currently 2 (1 standard drink = 0.6 oz pur e alcohol) PHQ-2 Answer Date Recorded PHQ-2 Score 6 07/23/2019 Sex and Gender Information Value Date Recorded Sex Assigned at Not on file Legal Sex Male 6:48 PM PANTRY CHEF Gender Identity Male 07/21/2019 1:21 AM PANTRY CHEF Sexual Orientation Meléndez 07/21/2019 1: 21 AM PANTRY CHEF documented as of this encounter Last Filed Vital Signs Vital Sign Reading Time Taken Comments Blood Pressure 122/80 08/24/2019 10:08 AM PANTRY CHEF Pulse 69 08/24/2019 10:08 AM PANTRY CHEF Temperature 36.9 ??C (98.4 ??F) 08/24/2019 10:[address] Respiratory Rate - - Oxygen Saturation 95% 08/24/2019 10:08 AM PANTRY CHEF Inhaled Oxygen Concentration - - Weight 125 kg (275 lb 9.6 oz) 08/24/2019 10:08 A M PANTRY CHEF Height 167.6 cm (5' 5.98 ) 08/24/2019 10:[address] Body Mass Index 44.51 08/24/2019 10:08 AM PANTRY CHEF documented in this encounter Progress Notes * Dorothea Cisneros PA - 08/24/2019 9:45 AM CST Images from the original note were not included. Visit date: 08/24/2019 Patient ID: Lee Osborne is a 29 y.o. male. Chief Complaint Chief Complaint Patient presents with ??? Back Pain Current Outpatient Medications: ??? azelastine (ASTELIN) 137 mcg (0.1 %) nasal spray, U 2 SPRAYS NASALLY BID, Disp: , Rfl: ??? busPIRone (BUSPAR) 15 mg tablet, Take 1 tablet (15 mg total) by mouth 3 (three) times a day, Disp: 90 tablet, Rfl: 0 ??? chlordiazePOXIDE (LIBRIUM) 25 mg capsule, Take 1 capsule (25 mg total) by mouth 3 (three) timesa day as needed for anxiety or withdrawal symptoms, Disp: 90 capsule, Rfl: 0 ??? FLUoxetine (PROzac) 40 mg capsule, Take 1 capsule (40 mg total) by mouth daily, Disp: 30 capsule, Rfl: 0 ??? fluticasone propionate (FLONASE) 50 mcg/actuation nasal spray, Administer 2 sprays into each nostril daily, Disp: 16 g, Rfl: 5 ??? lamoTRIgine (LaMICtal) 25 mg tablet, , Disp: , Rfl: ??? metoprolol XL (TOPROL-XL) 50 mg 24 hr tablet, Take 1 tablet (50 mg total) by mouth daily, Disp:30 tablet, Rfl: 2 ??? montelukast (SINGULAIR) 10 mg tablet, Take 1 tablet (10 mg total) by mouth nightly, Disp: 30 tablet, Rfl: 5 ??? omeprazole (PriLOSEC) 20 mg capsule, Take 20 mg by mouth daily, Disp: , Rfl: ??? prazosin (MINIPRESS) 1 mg capsule, TK ONE C PO HS, Disp: , Rfl: No Known Allergies HPI Pt is here for chronic back pain he's had since high school. He has a h/o scoliosis and feels this contributes to his pain. Pain is low and more to the right side and radiates to the hip. Hasn't usedice or heat much. Feels his hips are tilted b/c his RT pant leg hangs lower. Gets a lot of cramping to the point he has to sit down. When he had insurance was seeing a chiro three times a week but now is on medicaid from the state but will be switching to [place] as of august. He can't work due to all his psychiatric issues. Seeing a psych nurse at [facility] and has upcoming appt with sleep medicine here. He would like to get some physical therapy at this point. Wants to avoid pain pills; takes ibuprofen at times, up to about 3 a day. Feels the psych meds are helping but still has a lot of anxiety. Denies suicidal ideations/plans. He feels the depression is not as bad actually and sees an public relations specialist, a counselor and a nurse who will be adjusting his meds. Just started on lamictal and continues on buspar, librium, prozac. We stopped the Klonopin. Smokes marijuana at night and then eats a lot and then is finally able to sleep. Stated he was recently given the alpha rupa to assist w/ sleep and will be seeing Dr. garcia soon for a sleep study. Has stopped drinking PHQ Screening Over the last 2 weeks, [...] Moving Around a lot More Than Usual: More than half the days Thoughts That You Would be Better off , or of Hurting Yourself in Some Way: Several days PHQ-9 Total Score: 24 Review of Systems Genitourinary: Negative for difficulty urinating. Musculoskeletal: Positive for back pain (see HPI) and neck pain. Negative for gait problem. Chronic: see HPI Skin: Negative for rash. Neurological: Negative for numbness. Psychiatric/Behavioral: Positive for dysphoric mood. The patient is nervous/anxious. See HPI Vitals BP 122/80 (BP Location: Right arm, Patient Position: Sitting) Pulse 69 Temp 36.9 ??C (98.4 ??F) Ht 167.6 cm (5' 5.98 ) Wt 125 kg (275 lb 9.6 oz) SpO2 95% BMI 44.51 kg/m?? Physical Exam Constitutional: General: He is not in acute distress. Appearance: Normal appearance. He is obese. Cardiovascular: Rate and Rhythm: Normal rate and regular rhythm. Heart sounds: Normal heart sounds. Pulmonary: Effort: Pulmonary effort is normal. Breath sounds: Normal breath sounds. Musculoskeletal: Lumbar back: He exhibits normal range of motion, no bony tenderness, no deformity and no spasm. Neurological: Mental Status: He is alert. Motor: No weakness. Gait: Gait normal. Deep Tendon Reflexes: Reflex Scores: Patellar reflexes are 3+ on the right side and 3+ on the left side. Psychiatric: Mood and Affect: Mood normal. Behavior: Behavior normal. Thought Content: Thought content does not include suicidal plan. Judgment: Judgment normal. Comments: Pt appears the calmest I've even seen him. Good eye contact Diagnoses and all orders for this visit: Chronic right-sided low back pain without sciatica (Primary) Comments: ok to take 600mg Ibuprofen TID prn w/ food; PT order provided since he can't see chiro at this time. Orders: - Ambulatory referral order to Physical Therapy -; Future Return if symptoms worsen or fail to improve. Dorothea Cisneros PA-C RY CHEF documented in this encounter Plan of Treatment Not on file documented as of this encounter Visit Diagnoses Diagnosis Chronic right-sided low back pain without sciatica- Primary documented in this encounter Discontinued Medications Medication Sig Discontinue Reason Start Date End Da te clonazePAM (KlonoPIN) 0.5 mg tabletIndications:Anxiet y TAKE 1 TABLET BY MOUTH TWICE DAILY NEEDED FOR ANXIETY Therapy completed 07/20/2019 08/24/2019 documented as of this encounter Historical Medications * This list may reflect changes made after this encounter. lamoTRIgine (LaMICtal) 25 mg tablet 08/21/2019 10/26/2020 prazosin (MINIPRESS) 1 mg capsule 1 in the am and 3 at night 08/20/2019 10/24/2021 azelastine (ASTELIN) 137 mcg (0.1 %) nasal spray U 2 SPRAYS NASALLY BID 08/11/2019 11/09/2019 added in this encounter Care Teams Hot Tar Roofer Relationship Specialty Start Date End Date Dorothea Cisneros PA [address] [place] [id number] PCP - General 08/11/19 documented as of this encounter
--- OUTSIDE RECORDS SUMMARY | 2024-06-18 19:12 | XMS_ITS | Encounter Summary ---
Author Organization [facility] Address [address] [place] [address] Care Team Providers Care Ornamental Metal Erector Apprentice Name Role Phone Dorothea Cisneros Primary Care Provider + Dorothea Cisneros Primary Care Provider + Encounter Details Date Type Department Care Team (Late st Contact Info) Description 07/24/2019 Telephone [facility] Family Medicine [address] [facility] [address] [place] [address] Fly Ballard MD [address] [place] [address] Social History Tobacco Use Types Packs/Day Years Used Date Smoking Tobacco: Former Smokeless Tobacco: Never Alcohol Use Standard Drinks/Week Comments Not Currently 2 (1 standard drink = 0.6 oz pur e alcohol) PHQ-2 Answer Date Recorded PHQ-2 Score 6 07/23/2019 Sex and Gender Information Value Date Recorded Sex Assigned at Not on file Legal Sex Male 6:48 PM CORN CUTTER OPERATOR Gender Identity Male 07/21/2019 1:21 AM CORN CUTTER OPERATOR Sexual Orientation Meléndez 07/21/2019 1: 21 AM CORN CUTTER OPERATOR documented as of this encounter Miscellaneous Notes * Telephone Encounter - Hina Bang - 07/24/2019 1:20 PM CST Pt sent an e-mail about being referred to psych I called pt to discuss this type of referral and left detailed message and also emailed him about the process. Mailing him the psych referral list as well. CUTTER OPERATOR documented in this encounter Plan of Treatment Not on file documented as of this encounter Visit Diagnoses Not on filedocumented in this encounter Care Teams Ornamental Metal Erector Apprentice Relationship Specialty Start Date End Date Dorothea Cisneros PA [address] [place] [address] PCP - General 08/11/19 Dorothea Cisneros PA [address] [place] [address] PCP - General 05/30/19 08/10/19 documented as of this encounter
--- OUTSIDE RECORDS SUMMARY | 2024-06-18 19:12 | XMS_ITS | Encounter Summary ---
Author Organization [facility] Care Team Providers Care Music Minister Name Role Phone Dorothea Csineros Primary Care Provider + Encounter Details Date Type Department Care Team (Latest Contact Info) Description 06/04/2019 Travel Social History Tobacco Use Types Packs/Day Years Used Date Smoking Tobacco: Every Day Alcohol Use Standard Drinks/Week Comments Yes 0 (1 standard drink = 0.6 oz pur e alcohol) PHQ-2 Answer Date Recorded PHQ-2 Score 4 06/04/2019 Sex and Gender Information Value Date Recorded Sex Assigned at Not on file Legal Sex Male 6:48 PM PRINTER HELPER Gender Identity Male 07/21/2019 1:21 AM PRINTER HELPER Sexual Orientation Meléndez 07/21/2019 1: 21 AM PRINTER HELPER documented as of this encounter Plan of Treatment Not on file documented as of this encounter Visit Diagnoses Not on filedocumented in this encounter Care Teams Music Minister Relationship Specialty Start Date End Date Dorothea Cisneros PA [address] [place] [address] PCP - General 05/30/19 08/10/19 documented as of this encounter
--- OUTSIDE RECORDS SUMMARY | 2024-06-18 19:12 | XMS_ITS | Encounter Summary ---
Author Organization [facility] Healthcare Address [address] [place] [address] Care Team Providers Care Test Engineering Intern Name Role Phone Unavailable Primary Care Provider Unavailabl e Encounter Details Date Type Department Care Team (Late st Contact Info) Description 06/30/2016 1:42 PM BRAND LEAD - 06/30/2016 4:21 PM BRAND LEAD Hospital Encounter [facility] Zackery Stinson, [address] [place] [address] Low back pain; Tachycardia Social History Tobacco Use Types Packs/Day Years Used Date Smoking Tobacco: Never Assessed Sex and Gender Information Value Date Recorded Sex Assigned at Not on file Legal Sex Male 6:48 PM BRAND LEAD Gender Identity Male 07/21/2019 1:21 AM BRAND LEAD Sexual Orientation Meléndez 07/21/2019 1: 21 AM BRAND LEAD documented as of this encounter Last Filed Vital Signs Vital Sign Reading Time Taken Comments Blood Pressure 127/86 06/30/2016 1:54 PM BRAND LEAD Pulse 110 06/30/2016 1:54 PM BRAND LEAD Temperature 36.8 ??C (98.2 ??F) 06/30/2016 1:54 PM CS T Respiratory Rate - - Oxygen Saturation 97% 06/30/2016 1:54 PM BRAND LEAD Inhaled Oxygen Concentration - - Weight 120.6 kg (265 lb 14 oz) 06/30/2016 1:54 P M BRAND LEAD Height 167.6 cm (5' 6 ) 06/30/2016 1:54 PM BRAND LEAD Body Mass Index 42.91 06/30/2016 1:54 PM BRAND LEAD documented in this encounter Plan of Treatment Not on file documented as of this encounter Visit Diagnoses Diagnosis Low back pain Lumbago Tachycardia Unspecified tachycardia documented in this encounter
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
--- OUTSIDE RECORDS SUMMARY | 2024-06-18 19:12 | XMS_ITS | Encounter Summary ---
Author Organization [facility] Address [address] [place] [address] Care Team Providers Care Foreign Trade Teacher Name Role Phone Dorothea Cisneros Primary Care Provider + Reason for Visit * Reason Onset Date Comments CT results 08/10/2019 Encounter Details Date Type Department Care Team (Late st Contact Info) Description 08/10/2019 Telephone [facility] Family Medicine [address] [place] [phone] [place] [address] [place] [id number] results Social History Tobacco Use Types Packs/Day Years Used Date Smoking Tobacco: Former Smokeless Tobacco: Never Alcohol Use Standard Drinks/Week Comments Not Currently 2 (1 standard drink = 0.6 oz pur e alcohol) PHQ-2 Answer Date Recorded PHQ-2 Score 6 07/23/2019 Sex and Gender Information Value Date Recorded Sex Assigned at Not on file Legal Sex Male 6:48 PM FOLDER AND NOTCHER Gender Identity Male 07/21/2019 1:21 AM FOLDER AND NOTCHER Sexual Orientation Meléndez 07/21/2019 1: 21 AM FOLDER AND NOTCHER documented as of this encounter Miscellaneous Notes * Telephone Encounter - Damari Mccabe RN - 08/10/2019 5:00 PM CST Patient aware ER AND NOTCHER * Telephone Encounter - Dorothea Cisneros PA - 08/10/2019 2:48 PM FOLDER AND NOTCHER You can tell him there is some thickening of the RT maxillary sinus and he does have a deviated septum with swelling of the left nasal tissue as a result. They might recommend surgery but will need to see what ENT recommends first before he worries about that. ER AND NOTCHER * Telephone Encounter - Damari Mccabe RN - 08/10/2019 1:41 PM CST Faxed and copy to [facility] ER AND NOTCHER * Telephone Encounter - Lillian Chew - 08/10/2019 11:[address] results from [facility] ordered by INGA Cisneros results have not been readand patient would like me to send the results to another providers office for appointment tomorrow.Placed in [employer]'s basket for review PT Phone [phone] [facility]'s office fax [phone] ER AND NOTCHER documented in this encounter Plan of Treatment Not on file documented as of this encounter Visit Diagnoses Not on filedocumented in this encounter Care Teams Foreign Trade Teacher Relationship Specialty Start Date End Date Dorothea Cisneros PA [address] [place] [id number] PCP - General 05/30/19 08/10/19 documented as of this encounter
--- OUTSIDE RECORDS SUMMARY | 2024-06-18 19:12 | XMS_ITS | Encounter Summary ---
Author Organization [facility] Address [address] [place] [address] Care Team Providers Care Lumber Puller Name Role Phone Dorothea Cisneros Primary Care Provider + Encounter Details Date Type Department Care Team (Late st Contact Info) Description 05/30/2019 8:23 AM INDUSTRIAL ELECTRICAL TECHNICIAN - 05/30/2019 9:20 AM INDUSTRIAL ELECTRICAL TECHNICIAN [facility] [address] [place] [address] Eli Brewer DO [address] [facility] [place] [address] Unknown, Notinfile Discharge Disposition: Discharge to home or self care Social History Tobacco Use Types Packs/Day Years Used Date Smoking Tobacco: Never Assessed Sex and Gender Information Value Date Recorded Sex Assigned at Not on file Legal Sex Male 6:48 PM INDUSTRIAL ELECTRICAL TECHNICIAN Gender Identity Male 07/21/2019 1:21 AM INDUSTRIAL ELECTRICAL TECHNICIAN Sexual Orientation Meléndez 07/21/2019 1: 21 AM INDUSTRIAL ELECTRICAL TECHNICIAN documented as of this encounter Last Filed Vital Signs Vital Sign Reading Time Taken Comments Blood Pressure 125/89 05/30/2019 8:27 AM INDUSTRIAL ELECTRICAL TECHNICIAN Pulse 86 05/30/2019 8:27 AM INDUSTRIAL ELECTRICAL TECHNICIAN Temperature 36.7 ??C (98 ??F) 05/30/2019 8:27 AM INDUSTRIAL ELECTRICAL TECHNICIAN Respiratory Rate - - Oxygen Saturation 97% 05/30/2019 8:27 AM INDUSTRIAL ELECTRICAL TECHNICIAN Inhaled Oxygen Concentration - - Weight 127.9 kg (281 lb 15.5 oz) 05/30/2019 8:27 AM INDUSTRIAL ELECTRICAL TECHNICIAN Height 167.6 cm (5' 6 ) 05/30/2019 8:27 AM INDUSTRIAL ELECTRICAL TECHNICIAN Body Mass Index 45.51 05/30/2019 8:27 AM INDUSTRIAL ELECTRICAL TECHNICIAN documented in this encounter Medications at Time of Discharge amoxicillin-clavu lanate (AUGMENTIN) 875-125 mg per tablet 875 mg 05/30/2019 06/04/2019 hydrOXYzine (VISTARIL) 50 mg capsule Take 1 capsule by mouth daily 0 05/30/2019 06/19/2019 documented as of this encounter Discharge Disposition Disposition Code Departure Means Destination Discharge to home or self care documented in this encounter Plan of Treatment Not on file documented as of this encounter Procedures Procedure Name Priority Date/Time Associated Diagnosis Comments ECG 12-LEAD 05/30/2019 9:15 AM INDUSTRIAL ELECTRICAL TECHNICIAN documented in this encounter Results * ECG 12 lead (05/30/2019 9:15 AM INDUSTRIAL ELECTRICAL TECHNICIAN) Ventricular Rate EKG/Min 86 BPM [facility] Atrial Rate 86 BPM [facility] OK-Interval (MSEC) 158 ms [facility] QRS-Interval (MSEC) 86 ms [facility] QT-Interval (MSEC) 356 ms [facility] QTc 426 ms [facility] P Central 41 degrees [facility] R Central 32 degrees [facility] T Central 17 degrees [facility] Diagnosis Normal sinus rhythm Normal ECG No previous ECGs available [facility] 05/30/2019 9:15 AM INDUSTRIAL ELECTRICAL TECHNICIAN 05/30/2019 6:07 PM INDUSTRIAL ELECTRICAL TECHNICIAN Narrative Resulting Agency Comment [facility] us Eli Brewer DO ECG ORDERABLES Final Result [facility] documented in this encounter Visit Diagnoses Not on filedocumented in this encounter Care Teams Lumber Puller Relationship Specialty Start Date End Date Dorothea Cisneros PA [address] [place] [id number] PCP - General 05/30/19 08/10/19 documented as of this encounter
--- OUTSIDE RECORDS SUMMARY | 2024-06-18 19:12 | XMS_ITS | Encounter Summary ---
Author Organization [facility] Address [address] [place] [address] Care Team Providers Care Cushion Builder Name Role Phone Dorothea Cisneros Primary Care Provider + Reason for Visit * Reason Onset Date Comments staus update 06/12/2019 Encounter Details Date Type Department Care Team (Late st Contact Info) Description 06/12/2019 Telephone [facility] Family Medicine [address] [place] [phone] [place] [address] [place] [address] staus update Social History Tobacco Use Types Packs/Day Years Used Date Smoking Tobacco: Every Day Alcohol Use Standard Drinks/Week Comments Yes 0 (1 standard drink = 0.6 oz pur e alcohol) PHQ-2 Answer Date Recorded PHQ-2 Score 4 06/04/2019 Sex and Gender Information Value Date Recorded Sex Assigned at Not on file Legal Sex Male 6:48 PM STATISTICAL TYPIST Gender Identity Male 07/21/2019 1:21 AM STATISTICAL TYPIST Sexual Orientation Meléndez 07/21/2019 1: 21 AM STATISTICAL TYPIST documented as of this encounter Ordered Prescriptions Prescription Sig Dispense Quantity Refills Last Filled Start Date End Date methylPREDNISolone (MEDROL DOSEPACK) 4 mg Dosepack Take as directed on package. 21 tablet 06/12/2019 9 documented in this encounter Miscellaneous Notes * Telephone Encounter - Dorothea Cisneros PA - 06/12/2019 12:20 PM STATISTICAL TYPIST sent ISTICAL TYPIST * Telephone Encounter - Cassandra Wood MA - 06/12/2019 11:40 AM STATISTICAL TYPIST Pt called back and uses [facility] in [place]. He is aware if this does not help we will consider CT sinuses. ISTICAL TYPIST * Telephone Encounter - Damari Mccabe RN - 06/12/2019 11:33 AM CST Left VM for patient to call back ISTICAL TYPIST * Telephone Encounter - Dorothea Cisneros PA - 06/12/2019 10:46 AM STATISTICAL TYPIST Get a pharmacy name and tell him I can send in a medrol (steroid) pack to open up his nose and decrease inflammation. If this doesn't work we need to consider a sinus CT ISTICAL TYPIST * Telephone Encounter - Damari Mccabe, WILLIAM - 06/12/2019 9:04 AM CST Finished antibiotic and still very congested especially the right side of his nose, not sleeping, only slight improvement. It's causing increase in anxiety. ISTICAL TYPIST documented in this encounter Plan of Treatment Not on file documented as of this encounter Visit Diagnoses Not on filedocumented in this encounter Care Teams Cushion Builder Relationship Specialty Start Date End Date Dorothea Cisneros PA [address] [place] [id number] PCP - General 05/30/19 08/10/19 documented as of this encounter
--- OUTSIDE RECORDS SUMMARY | 2024-06-18 19:12 | XMS_ITS | Encounter Summary ---
Author Organization [facility] Care Team Providers Care Crayon Sorting Machine Feeder Name Role Phone Dorothea Cisneros Primary Care Provider + Encounter Details Date Type Department Care Team (Latest Contact Info) Description 07/08/2019 Travel Social History Tobacco Use Types Packs/Day Years Used Date Smoking Tobacco: Every Day Smokeless Tobacco: Never Comments:vapes Alcohol Use Standard Drinks/Week Comments Yes 2 (1 standard drink = 0.6 oz pur e alcohol) PHQ-2 Answer Date Recorded PHQ-2 Score 4 06/04/2019 Sex and Gender Information Value Date Recorded Sex Assigned at Not on file Legal Sex Male 6:48 PM MANAGER LOAN Gender Identity Male 07/21/2019 1:21 AM MANAGER LOAN Sexual Orientation Meléndez 07/21/2019 1: 21 AM MANAGER LOAN documented as of this encounter Plan of Treatment Not on file documented as of this encounter Visit Diagnoses Not on filedocumented in this encounter Care Teams Crayon Sorting Machine Feeder Relationship Specialty Start Date End Date Dorothea Cisneros PA [address] [place] [address] PCP - General 05/30/19 08/10/19 documented as of this encounter
--- OUTSIDE RECORDS SUMMARY | 2024-06-18 19:12 | XMS_ITS | Encounter Summary ---
Author Organization [facility] Address [address] [place] [address] Care Team Providers Care Seasonal Delivery Driver Name Role Phone Dorothea Cisneros Primary Care Provider + Encounter Details Date Type Department Care Team (Late st Contact Info) Description 06/22/2019 Telephone [facility] Family Medicine [address] [place] [address] [place] [address] [place] [address] [address] [place] [address] Social History Tobacco Use Types Packs/Day Years Used Date Smoking Tobacco: Every Day Alcohol Use Standard Drinks/Week Comments Yes 0 (1 standard drink = 0.6 oz pur e alcohol) PHQ-2 Answer Date Recorded PHQ-2 Score 4 06/04/2019 Sex and Gender Information Value Date Recorded Sex Assigned at Not on file Legal Sex Male 6:48 PM COLLECTIONS DIRECTOR Gender Identity Male 07/21/2019 1:21 AM COLLECTIONS DIRECTOR Sexual Orientation Meléndez 07/21/2019 1: 21 AM COLLECTIONS DIRECTOR documented as of this encounter Ordered Prescriptions Prescription Sig Dispense Quantity Refills Last Filled Start Date End Date busPIRone (BUSPAR) 7.5 mg tabletIndications: Generalized Anxiety Disorder Take 1 tablet (7.5 mg total) by mouth 2 (two) times a day 60 tablet 06/22/2019 07/23/2019 documented in this encounter Miscellaneous Notes * Telephone Encounter - Gisele Loza MA - 06/22/2019 1:07 PM CST Pt aware. ECTIONS DIRECTOR * Telephone Encounter - Dorothea Cisneros PA - 06/22/2019 12:49 PM COLLECTIONS DIRECTOR I sent the buspar to [facility]. I didn't know if he lost the bottle or lost a paper script. ECTIONS DIRECTOR * Telephone Encounter - Sindhu Carrillo - 06/22/2019 10:23 AM CST Wants to know about possibly getting a refill on buspirone 7.5 mg he lost the original. Would like a call back . ECTIONS DIRECTOR documented in this encounter Plan of Treatment Not on file documented as of this encounter Visit Diagnoses Diagnosis Anxiety Anxiety state, unspecified documented in this encounter Discontinued Medications Medication Sig Discontinue Reason Start Date End Da te busPIRone (BUSPAR) 7.5 mg tabletIndications:Genera lized Anxiety Disorder Take 1 tablet (7.5 mg total) by mouth 2 (two) times a day Reorder 06/19/2019 06/22/2019 documented as of this encounter Care Teams Seasonal Delivery Driver Relationship Specialty Start Date End Date Dorothea Cisneros PA [address] [place] [id number] PCP - General 05/30/19 08/10/19 documented as of this encounter
--- OUTSIDE RECORDS SUMMARY | 2024-06-18 19:12 | XMS_ITS | Encounter Summary ---
Author Organization [facility] Address [address] [place] [address] Care Team Providers Care Photo Manager Name Role Phone Dorothea Cisneros Primary Care Provider + Encounter Details Date Type Department Care Team (Late st Contact Info) Description 07/06/2019 Telephone [facility] Family Medicine [address] [facility] [address] [place] [address] [place] [address] [place] [address] [address] [place] [address] Social History Tobacco Use Types Packs/Day Years Used Date Smoking Tobacco: Every Day Alcohol Use Standard Drinks/Week Comments Yes 0 (1 standard drink = 0.6 oz pur e alcohol) PHQ-2 Answer Date Recorded PHQ-2 Score 4 06/04/2019 Sex and Gender Information Value Date Recorded Sex Assigned at Not on file Legal Sex Male 6:48 PM ATTENDANT ARCADE Gender Identity Male 07/21/2019 1:21 AM ATTENDANT ARCADE Sexual Orientation Meléndez 07/21/2019 1: 21 AM ATTENDANT ARCADE documented as of this encounter Miscellaneous Notes * Telephone Encounter - Gisele Loza MA - 07/06/2019 4:50 PM CST Appt 07/08/19 NDANT ARCADE * Telephone Encounter - Dorothea Cisneros PA - 07/06/2019 4:32 PM ATTENDANT ARCADE We really can't act on this w/o seeing him. NDANT ARCADE * Telephone Encounter - Gisele Loza MA - 07/06/2019 3:29 PM CST Per pt already had a steroid pack and was told might need a CT? See previous encounter from Corin. NDANT ARCADE * Telephone Encounter - Diane Harrison PA - 07/06/2019 1:37 PM ATTENDANT ARCADE We can try adding a steroid pack if he wants that If he is, send out medrol dose pack for him NDANT ARCADE * Telephone Encounter - Lillian Jones MA - 07/06/2019 1:30 PM CST Pt was seen 06-19-2019 and he says his congestion is not any better. What can he do? NDANT ARCADE documented in this encounter Plan of Treatment Not on file documented as of this encounter Visit Diagnoses Not on filedocumented in this encounter Care Teams Photo Manager Relationship Specialty Start Date End Date Dorothea Cisneros PA [address] [facility] [address] [address] PCP - General 05/30/19 08/10/19 documented as of this encounter
--- OUTSIDE RECORDS SUMMARY | 2024-06-18 19:12 | XMS_ITS | Encounter Summary ---
Author Organization [facility] Address [address] [facility] [address] [place] [address] Care Team Providers Care Editor House Organ Name Role Phone Dorothea Cisneros Primary Care Provider + Dorothea Cisneros Primary Care Provider + Encounter Details Date Type Department Care Team (Late st Contact Info) Description 08/04/2019 Orders Only [facility] [address] [place] [address] Scanning, Provider Social History Tobacco Use Types Packs/Day Years Used Date Smoking Tobacco: Former Smokeless Tobacco: Never Alcohol Use Standard Drinks/Week Comments Not Currently 2 (1 standard drink = 0.6 oz pur e alcohol) PHQ-2 Answer Date Recorded PHQ-2 Score 6 07/23/2019 Sex and Gender Information Value Date Recorded Sex Assigned at Not on file Legal 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 Gender Identity Male 07/21/2019 1:21 AM 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 Sexual Orientation Meléndez 07/21/2019 1: 21 AM 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 documented as of this encounter Plan of Treatment Not on file documented as of this encounter Procedures Procedure Name Priority Date/Time Associated Diagnosis Comments SCAN - RADIOLOGY/IMAGING 08/04/2019 documented in this encounter Results * SCAN - RADIOLOGY/IMAGING (08/04/2019) Anatomical Region Laterality Modality Other us Provider Scanning Final Result documented in this encounter Visit Diagnoses Not on filedocumented in this encounter Care Teams Editor House Organ Relationship Specialty Start Date End Date Dorothea Cisneros PA [address] [facility] [address] [place] [address] PCP - General 08/11/19 Dorothea Cisneros PA [address] [facility] [address] [place] [address] PCP - General 05/30/19 08/10/19 documented as of this encounter
--- OUTSIDE RECORDS SUMMARY | 2024-06-18 19:12 | XMS_ITS | Encounter Summary ---
Author Organization [facility] Healthcare Address [address] [place] [address] Care Team Providers Care Transport Engineer Name Role Phone Unavailable Primary Care Provider Unavailabl e Encounter Details Date Type Department Care Team (Latest Contact Info) Description 12/17/2012 9:00 AM CDT Hospital Encounter [facility] Rashaad Gutierrez MD [address] [facility] [address] [address] Syncope and collapse Social History Tobacco Use Types Packs/Day Years Used Date Smoking Tobacco: Never Assessed Sex and Gender Information Value Date Recorded Sex Assigned at Not on file Legal Sex Male 6:48 PM 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 Gender Identity Male 07/21/2019 1:21 AM 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 Sexual Orientation Meléndez 07/21/2019 1: 21 AM 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 documented as of this encounter Plan of Treatment Not on file documented as of this encounter Procedures Procedure Name Priority Date/Time Associated Diagnosis Comments SCAN - NEUROLOGY 01/06/2013 12:0 0 AM CDT MRI BRAIN WO CONTRAST Routine 12/17/2012 11:22 AM CDT EEG Routine 12/17/2012 12:00 AM CDT documented in this encounter Results * SCAN - NEUROLOGY (01/06/2013 12:00 AM CDT) Anatomical Region Laterality Modality Other Narrative 01/06/2013 12:00 AM CDT Ordered by an unspecified provider. us Historical Provider Final Res ult * MRI Brain WO Contrast (12/17/2012 11:22 AM CDT) Anatomical Region Laterality Modality Head and Neck N/A Magnetic Resonan ce 12/17/2012 11:2 2 AM CDT Impressions 12/30/2012 2:00 PM CDT ?? 1. ??Normal MRI of the brain. ??No significant interval change compared with 01/09/2012. THIS IS AN ELECTRONICALLY VERIFIED REPORT 12/30/2012 1:53 PM: ??Wilfrido David D.O. Wilfrido David D.O. :jw 12:39 PM 12:41 PM [EOD] Narrative 12/30/2012 2:00 PM CDT EXAMINATION: ??MRI brain without contrast. HISTORY: ??Syncope. TECHNIQUE: ??Multiplanar, multipulse sequence imaging of the brain was performed without contrast. COMPARISON: ??MRI brain performed 01/09/2012. FINDINGS: ??The ventricles and subarachnoid spaces are appropriate in size and morphology. ??There is no mass, mass effect, or midline shift. ??No intracranial hemorrhage or blood degradation products are noted on the gradient echo sequence. No abnormal cytotoxic or vasogenic edema is identified. ??Vascular flow voids at the skull base are present. ??Midline structures are normal. ?? Orbital contents are unremarkable. There is no residual paranasal sinus mucosal disease. ??The mastoid air cells are grossly unremarkable. Procedure Note Provider, Hortencia, - 11/16/2020 EXAMINATION: MRI brain without contrast. HISTORY: Syncope. TECHNIQUE: Multiplanar, multipulse sequence imaging of the brain was performed without contrast. COMPARISON: MRI brain performed 01/09/2012. FINDINGS: The ventricles and subarachnoid spaces are appropriate in sizeand morphology. There is no mass, mass effect, or midline shift. Nointracranial hemorrhage or blood degradation products are noted on the gradient echo sequence. No abnormal cytotoxic or vasogenic edema is identified.Vascular flow voids at the skull base are present. Midline structures are normal. Orbital contents are unremarkable. There is no residual paranasal sinus mucosal disease. The mastoid air cells are grossly unremarkable. IMPRESSION: 1. Normal MRI of the brain. No significant interval change compared with 01/09/2012. THIS IS AN ELECTRONICALLY VERIFIED REPORT 12/30/2012 1:53 PM: Wilfrido David D.O. Wilfrido David D.O. :jw 12:39 PM 12:41 PM [EOD] us Rashaad Marin MD IMG MRI PROCEDURES Final Re sult * EEG (12/17/2012 12:00 AM CDT) Anatomical Region Laterality Modality Other 12/17/2012 Impressions 01/13/2013 10:18 PM CDT ??This is a normal electroencephalographic recording, in the awake and drowsy states. LB/MG TD: ??12/18/2012 07:19:07 Job #: ??[id number] Rosita Boogie MD [EOD] Narrative 01/13/2013 10:18 PM CDT DATE: ??12/17/2012 Date of study December 17, 2012 Requesting physician, Dr. Marin REASON FOR STUDY: ??Syncope. PATIENT HISTORY: ??This is a 22-year-old male who had a syncopal episode during a blood draw, followed by a reported seizure. MEDICATIONS: ??Celexa. DESCRIPTION OF RECORDING: ??This is a routine 20-channel EEG consisting of 18- channels of EEG, one channel of EKG and one channel of ocular monitoring. Electrodes were placed according to the 10-20 International Electrode System. Technical quality of the study is good. INTERPRETATION OF RECORDING: ??During wakefulness a 10-11 Hz, 50-60 mV, posterior dominant rhythm was seen. ??The posterior dominant rhythm was well modulated and attenuated with eye opening and alerting tasks. ??A 5-10 mV, 18- 20 Hz beta frequencies predominated in fronto-central head regions. Intermittently, posterior slow waves of youth (a physiological finding) intermingled with posterior dominant rhythm. During drowsiness, the posterior dominant rhythm attenuated and diffuse 5-6 Hz polymorphic theta rhythm was seen. ??However, deeper stages of sleep were not obtained. Hyperventilation was performed with good effort for 3 minutes, and did not induce any changes in the EEG background. ??Photic stimulation was performed and did not induce ??any changes in the EEG background. Procedure Note Provider, Hortencia, - 01/25/2021 DATE: 12/17/2012 Date of study December 17, 2012 Requesting physician, Dr. Marin REASON FOR STUDY: Syncope. PATIENT HISTORY: This is a 22-year-old male who had a syncopal episodeduring a blood draw, followed by a reported seizure. MEDICATIONS: Celexa. DESCRIPTION OF RECORDING: This is a routine 20-channel EEG consisting of18- channels of EEG, one channel of EKG and one channel of ocularmonitoring. Electrodes were placed according to the 10-20 InternationalElectrode System. Technical quality of the study is good. INTERPRETATION OF RECORDING: During wakefulness a 10-11 Hz, 50-60 mV,posterior dominant rhythm was seen. The posterior dominant rhythm waswell modulated and attenuated with eye opening and alerting tasks. A 5-10mV, 18- 20 Hz beta frequencies predominated in fronto-central headregions. Intermittently, posterior slow waves of youth (a physiologicalfinding) intermingled with posterior dominant rhythm. During drowsiness, the posterior dominant rhythm attenuated and diffuse5-6 Hz polymorphic theta rhythm was seen. However, deeper stages of sleepwere not obtained. Hyperventilation was performed with good effort for 3 minutes, and did notinduce any changes in the EEG background. Photic stimulation wasperformed and did not induce any changes in the EEG background. IMPRESSION: This is a normal electroencephalographic recording, in theawake and drowsy states. LB/MG TD: 12/18/2012 07:19:07 /[id number] Rosita Boogie MD [EOD] us Rashaad Marin MD NEUROLOGY ORDERABLES Final Result documented in this encounter Visit Diagnoses Diagnosis Syncope and collapse documented in this encounter
--- OUTSIDE RECORDS SUMMARY | 2024-06-18 19:13 | XMS_ITS ---
Author Organization [facility] Address [address] [place] [address] Care Team Providers Care Kiln Loader Name Role Phone ModaMi, [facility] Primary Care Prov ider Unavailable Damari Lazcano Unavailable [phone] Allergies Allergen (clinical drug ingredient) Drug/Non Drug Allergy documented on EMR Reaction Allergy Type Onset Date Status No Known Drug Allergy Unknown Drug Allergy Active REASON FOR VISIT 1 Month Psych F/U & Med Refill Medications Medication SIG (Take, Route, Frequency, Duration) Notes Start Date End Date Status Omeprazole 20 MG 1 capsule 30 minutes before morning meal Orally Once a day Unknown Varenicline Tartrate 1 MG 1 tablet after eating with a full glass of water Orally Once a day Unknown ZyrTEC Allergy 10 MG 1 tablet Orally Onc e a day Unknown PROzac 40 MG 2 capsules Orally On ce a day for 5 days Active Propranolol HCl 20 MG 1 tablet Orally Tw ice a day for 5 days Active lamoTRIgine 200 MG 1 tablet Orally Once a day for 30 days Active busPIRone HCl 30 MG 0.5 tablet in mornin g and evening, 1 tablet in afternoon Orally three times a day for 5 days Active Prazosin HCl 2 MG 2 capsules at bedtim e Orally Once a day for 30 days Active lamoTRIgine 200 MG 1 tablet Orally Once a day for 5 days Active clonazePAM 0.5 MG 0.5-1 tablet as need ed Orally Once a day for 30 days 03/10/2024 Active Prazosin HCl 2 MG 2 capsules at bedtim e Orally Once a day for 30 days Active clonazePAM 0.5 MG 1 tablet Orally Once a day for 30 days As needed 06/09/2024 Active clonazePAM 0.5 MG 1 tablet as needed O rally Once a day for 30 days 06/09/2024 Active PROzac 40 MG 2 capsules Orally On ce a day for 30 days Active busPIRone HCl 30 MG 0.5 tablet in mornin g and evening, 1 tablet in afternoon Orally three times a day for 30 days Active Propranolol HCl 20 MG 1 tablet Orally Tw ice a day for 30 days Active Social History Sex Assigned At : Social History Observation Description Sex Assigned At Male Section Notes: - - - - - - - - - - - Additional Social History 10/15/2023: History of trauma, details unknown, with Dx of PTSD Multiple anxiety-related diagnoses - phobia of blood, panic disorder, ELOISA, OCD Lives with partner and two dogs - - - - - - - - - - - Encounters Encounter Location Date Provider Diagnosis [address] [address] 06/09/2024 Damari Lazcano MDD (major depressive disorder) F32.9 ; Anxiety, generalized F41.1 ; Panic disorder F41.0 ; Post traumatic stress disorder (PTSD) F43.10 ; Obsessive-compulsive disorder, unspecified F42.9 and Medication management Z79.899 Assessments Encounter Date Diagnosis (ICD Code) Assessment Notes Treatment Notes Treatment Clinical Notes Section Notes 06/09/2024 MDD (major depressive disorder) (ICD-10 - F32.9) Continue psychotherapy as scheduled. 06/09/2024 Anxiety, generalized (ICD-10 - F41.1) Continue psychotherapy as scheduled. 06/09/2024 Panic disorder (ICD-10 - F41.0) [facility] checked 06/09/2024 - no concerns. Continue psychotherapy as scheduled. 06/09/2024 Post traumatic stress disorder (PTSD) (ICD-10 - F43.10) Continue psychotherapy as scheduled. 06/09/2024 Obsessive-compul sive disorder, unspecified (ICD-10 - F42.9) Continue psychotherapy as scheduled. 06/09/2024 Medication management (ICD-10 - Z79.899) May self-administer medications or be administered own oral medications per [facility] protocols. Provided informed consent with understanding of side effects, adverse effects, risks and benefits as well as alternative treatments as previously discussed and with the above recommended medications & other aspects of the treatment program. Agrees to return sooner if symptoms worsen or suicidal or homicidal ideations occur. Plan Of Treatment Medication Medication Name Sig Start Date Stop Date Notes lamoTRIgine 200 MG 1 tablet Orally Once a day for 30 days Prazosin HCl 2 MG 2 capsules at bedtim e Orally Once a day for 30 days clonazePAM 0.5 MG 1 tablet Orally Once a day for 30 days 06/09/2024 clonazePAM 0.5 MG 1 tablet as needed O rally Once a day for 30 days 06/09/2024 PROzac 40 MG 2 capsules Orally On ce a day for 30 days busPIRone HCl 30 MG 0.5 tablet in mornin g and evening, 1 tablet in afternoon Orally three times a day for 30 days Propranolol HCl 20 MG 1 tablet Orally Tw ice a day for 30 days Treatment Notes Assessment Notes MDD (major depressive disorder) Continue psychotherapy as scheduled. Anxiety, generalized Continue psychother apy as scheduled. [place]ic [place]09/[place]24 - no concerns. Continue psychotherapy as scheduled. Post traumatic stress disorder (PTSD) Co ntinue psychotherapy as scheduled. Obsessive-compulsive disorder, unspecifi ed Continue psychotherapy as scheduled. Medication management May self-administe r medications or be administered own oral medications per [facility] protocols. Provided informed consent with understanding of side effects, adverse effects, risks and benefits as well as alternative treatments as previously discussed and with the above recommended medications & other aspects of the treatment program. Agrees to return sooner if symptoms worsen or suicidal or homicidal ideations occur. Next Appt Details Follow Up: 4 Weeks, Reason: Psychiatric Follow-up & Medication Management Progress Notes * Lee MYERSDOB: 8 (34 yo M)Acc No.[id number]:06/09/2024 Patient:?Lee MYERS Provider:?Damari Lazcano DNP, MULTIMEDIA PROGRAMMER, P [facility] :1990???Age:34 Y???Sex:Male Isael e:06/09/2024 Address:[facility] [address] [place], [place] , [id number] Pcp: [facility] Sy stems Check In:03:29 PM BOILER SETTER Subjective: * Chief Complaints: * ???1 Month Psych F/U & Med R efill * HPI: ???Depression Screening:?PHQ-9?Little interest or pleasure in doing things?Nearly every day ?Feeling down, depressed, or hopeless?Nearly every day ?Trouble falling or staying asleep, or sleeping too much?Nearly every day ?Feeling tired or having little energy?Nearly every day ?Poor appetite or overeating?More than half the days ?Feeling bad about yourself or that you are a failure, or have let yourself or your family down?Several days ?Trouble concentrating on things, such as reading the newspaper or watching television?Several days ?Moving or speaking so slowly that other people could have noticed; or the opposite, being so fidgety or restless that you have been moving around a lot more than usual?Not at all ?Thoughts that you would be better off or of hurting yourself in some way?Not at all ?Total Score?16 ?Interpretation?Moderately Severe Depression ?Intervention?Depression Screening Findings?Positive ?Follow-Up for Depression?No Referral necessary, patient involved in behavioral health treatment . ???Screening:?[place] Suicide Severity Rating Scale (LF)?Do you want to initiate with?Screener form ?1. Wish to be : Have you wished you were or wished you could go to sleep and not wake up??No ?2. Suicidal Thoughts: Have you actually had any thoughts of killing yourself??No ?6. Suicide Behaviour: Have you ever done anything,started to do anything, or prepared to end your life??No ?Interpretation:?Low Risk ???CSSRS Interpretation and Follow Up Plan:?CSSRS Interpretation and Follow Up Plan?CSSRS Screen documented using SF?Yes ?Moderate or High risk requires selection of a follow up plan?CSSRS No/Low: intervention not needed at this time ???Psych F/U:? 33-year-old male client presents for follow-up psychiatric and medication management appointment. Client is being followed for the management of OCD, PTSD, ELOISA, panic disorder, fear of blood, alcohol use disorder, and cannabis use disorder. Client is amenable to appointment today. The patient has been dealing with high levels of anxiety, which they rate at 8 out of 10. This anxiety has been triggered by several recent events. One of these events was an online incident where the patient was targeted and harassed after accidentally misgendering someone. This incident led to a significant amount of stress and anxiety for the patient. In addition to the online incident, the patient's father was recently hospitalized in the ICU due to blood clots. This has been an ongoing issue for the patient's father, and it has caused a significant amount of worry and stress for the patient. 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 The patient has been taking clonazepam daily to manage their anxiety.The patient's sleep and appetite have been inconsistent. Client rates depression at 8/10 and anxiety at 9/10.?Rates anger/irritability at 7/10.?Denies suicidal or homicidal ideation.?No reports or observations of psychotic symptoms/behaviors, manic behaviors, obsessive/compulsive behaviors or trauma/PTSD. No reports of side effects from medications. They have also been trying to quit smoking, which has been a struggle.?Denies any other substance use.?The patient has also been dealing with stage 3 periodontal disease. This has led to a tooth extraction and discomfort, which has added to the patient's stress and anxiety. The patient has also been trying to lose weight but has been struggling to do so.?Denies any other medical concerns at this time.?Client is participating in individual therapy services. * ROS:?Psych ROS:?Constitutional?All systems negative unless indicated otherwise, No recent illness reported.?Ears/Nose/Mouth/Throat?chronic sinusitis.?Respiratory?sleep apnea.?Cardiovascular?HTN.?Psych?Denies SI/HI/AH/VH,Reports depression/anxiety, Reports anger/irritability, Reports sleep disturbances.? * Medical History:? * Surgical History:?Denies Pas t Surgical History * Hospitalization/Major Diagno stic Procedure:?Denies Past Hospitalization * Family History:?Father: michi souza.?Mother: alive.?1 brother(s) , 1 sister(s) - healthy. .? * Social History:?Primary Social History:?Living Arrangement?Living Arrangement:?Dependent Living ?Living with:?Other: ?Is this a supportive environment??Yes ?Alcohol Use?Alcohol Use Frequency:?Weekly or Daily ?Type of alcohol consumed?Liquor ?Quanity consumed on those occasions?half gallon a day vodka ?Illicit Substance Usage?Illicit Substance Usage:?Yes ?Substance Used:?Cannabis ?Frequency Cannabis is used:?Daily- mainly evening ?Employment Status?Employment Status:?Unemployed ???- - - - - - - - - - - Additional Social History 10/15/2023:? History of trauma, details unknown, with Dx of PTSD Multiple anxiety-related diagnoses - phobia of blood, panic disorder, ELOISA, OCD Lives with partner and two dogs - - - - - - - - - - -. * Medications:?TakingPropranol ol HCl 20 MG Tablet 1 tablet Orally Twice a day busPIRone HCl 30 MG Tablet 0.5 tablet in morning and evening, 1 tablet in afternoon Orally three times a day PROzac 40 MG Capsule 2 capsules Orally Once a day Prazosin HCl 2 MG Capsule 2 capsules at bedtime Orally Once a day lamoTRIgine 200 MG Tablet 1 tablet Orally Once a day clonazePAM 0.5 MG Tablet 0.5-1 tablet as needed Orally Once a day Prazosin HCl 2 MG Capsule 2 capsules at bedtime Orally Once a day lamoTRIgine 200 MG Tablet 1 tablet Orally Once a day busPIRone HCl 30 MG Tablet 0.5 tablet in morning and evening, 1 tablet in afternoon Orally three times a day PROzac 40 MG Capsule 2 capsules Orally Once a day Propranolol HCl 20 MG Tablet 1 tablet Orally Twice a day Taking Propranolol HCl 20 MG Tablet 1 tablet Orally Twice a day Taking busPIRone HCl 30 MG Tablet 0.5 tablet in morning and evening, 1 tablet in afternoon Orally three times a day Taking PROzac 40 MG Capsule 2 capsules Orally Once a day Taking Prazosin HCl 2 MG Capsule 2 capsules at bedtime Orally Once a day Taking lamoTRIgine 200 MG Tablet 1 tablet Orally Once a day Taking clonazePAM 0.5 MG Tablet 0.5-1 tablet as needed Orally Once a day Taking Prazosin HCl 2 MG Capsule 2 capsules at bedtime Orally Once a day Taking lamoTRIgine 200 MG Tablet 1 tablet Orally Once a day Taking busPIRone HCl 30 MG Tablet 0.5 tablet in morning and evening, 1 tablet in afternoon Orally three times a day Taking PROzac 40 MG Capsule 2 capsules Orally Once a day Taking Propranolol HCl 20 MG Tablet 1 tablet Orally Twice a day UnknownVarenicline Tartrate 1 MG Tablet 1 tablet after eating with a full glass of water Orally Once a day ZyrTEC Allergy 10 MG Tablet 1 tablet Orally Once a day Omeprazole 20 MG Capsule Delayed Release 1 capsule 30 minutes before morning meal Orally Once a day Medication List reviewed and reconciled with the patientUnknown Varenicline Tartrate 1 MG Tablet 1 tablet after eating with a full glass of water Orally Once a day Unknown ZyrTEC Allergy 10 MG Tablet 1 tablet Orally Once a day Unknown Omeprazole 20 MG Capsule Delayed Release 1 capsule 30 minutes before morning meal Orally Once a day Medication List reviewed and reconciled with the patient * Allergies:?No Known Drug All ergyno[Allergies Verified] Objective: * Vitals:? Unable to obtain vital signs due to telehealth visit . * Examination: ???Psychiatry: ?APPEARANCE:?unable to assess - telephone appointment.?ATTENTION:?good.?ORIENTATION:?person, place and time.?ATTITUDE:?cooperative, nervous.?AFFECT:?unable to assess - telephone appointment, verbally full.?MOOD:?anxious, depressed.?SPEECH:?clear, normal/R/V/R.?PSYCHOMOTOR ACTIVITY:?unable to assess - telephone appointment.?ABNORMAL BODY MOVEMENTS:?unable to assess - telephone appointment.?CURRENT HOMICIDALITY:?denies.?CURRENT SUICIDALITY:?denies.?THOUGHT PROCESS:?intact, linear, goal-directed.?THOUGHT CONTENT:?unremarkable.?PERCEPTUAL DISORDERS:?no perceptual disorder noted.?INSIGHT:?fair.?JUDGEMENT:?fair.?INTELLIGENCE (estimate):?average.? Assessment: * Assessment: 1.?MDD (major depressive dis order) - F32.9???2.?Anxiety, generalized - F41.1???3.?Panic disorder - F41.0???4.?Post traumatic stress disorder (PTSD) - F43.10???5.?Obsessive-compulsive disorder, unspecified - F42.9 ??6.?Medication management - Z79.899??? Plan: * Treatment: 2.?Anxiety, generalized? Refill Propranolol HCl Tablet, 20 MG, 1 tablet, Orally, Twice a day, 30 days, 60, Refills 0;?Refill busPIRone HCl Tablet, 30 MG, 0.5 tablet in morning and evening, 1 tablet in afternoon, Orally, three times a day, 30 days, 60, Refills 0.?? Notes: Continue psychotherapy as scheduled.?? 3.?Panic disorder? escribe error clonazePAM Tablet, 0.5 MG, 1 tablet as needed, Orally, Once a day, 30 days, 30 Tablet, Refills 0;?Start clonazePAM Tablet, 0.5 MG, 1 tablet, Orally, Once a day As needed, 30 days, 10 Tablet, Refills 0.?? Notes[place] - no concerns. Continue psychotherapy as scheduled.?? 4.?Post traumatic stress dis order (PTSD)? Refill Prazosin HCl Capsule, 2 MG, 2 capsules at bedtime, Orally, Once a day, 30 days, 60 Capsule, Refills 0.?? Notes: Continue psychotherapy as scheduled.?? 5.?Obsessive-compulsive diso rder, unspecified? Refill lamoTRIgine Tablet, 200 MG, 1 tablet, Orally, Once a day, 30 days, 30, Refills 0.?? Notes: Continue psychotherapy as scheduled.?? 6.?Medication management? Notes: May self-administer medications or be administered own oral medications per [facility] protocols. Provided informed consent with understanding of side effects, adverse effects, risks and benefits as well as alternative treatments as previously discussed and with the above recommended medications & other aspects of the treatment program. Agrees to return sooner if symptoms worsen or suicidal or homicidal ideations occur.?? * Procedure Codes:? * Follow Up:?4 Weeks (Reason: Psychiatric Follow-up & Medication Management) * * ER SETTER Sign off status: Completed true * Provider:?Damari Lazcano, LUCA, MULTIMEDIA PROGRAMMER, PMHNP- Date:?06/09/2024 Generated for Printing/Faxing/eTransmitting on:?06/18/2024 07:13 PM BOILER SETTER History and Physical Notes * HPI (History of Present Illness) Category Sub-Category Detail Notes Category Not es Depression Screening PHQ-9 Little inte rest or pleasure in doing things: Nearly every day Feeling down, depressed, or hopeless: Ne luciana every day Trouble falling or staying asleep, or sl eeping too much: Nearly every day Feeling tired or having little energy: N early every day Poor appetite or overeating: More than h magy the days Feeling bad about yourself o r that you are a failure, or have let yourself or your family down: Several days Trouble concentrating on thi ngs, such as reading the newspaper or watching television: Several days Moving or speaking so slowly that other people could have noticed; or the opposite, being so fidgety or restless that you have been moving around a lot more than usual: Not at all Thoughts that you would be b liz off or of hurting yourself in some way: Not at all Total Score: 16 Interpretation: Moderately Severe Depres bharat Intervention Depression Screening Findings: P ositive Follow-Up for Depression: No Referral necessary, patient involved in behavioral health treatment . Psych F/U 33-year-old male client presents for follow-up psychiatric and medication management appointment. Client is being followed for the management of OCD, PTSD, ELOISA, panic disorder, fear of blood, alcohol use disorder, and cannabis use disorder. Client is amenable to appointment today. The patient has been dealing with high levels of anxiety, which they rate at 8 out of 10. This anxiety has been triggered by several recent events. One of these events was an online incident where the patient was targeted and harassed after accidentally misgendering someone. This incident led to a significant amount of stress and anxiety for the patient. In addition to the online incident, the patient's father was recently hospitalized in the ICU due to blood clots. This has been an ongoing issue for the patient's father, and it has caused a significant amount of worry and stress for the patient. 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 The patient has been taking clonazepam daily to manage their anxiety.The patient's sleep and appetite have been inconsistent. Client rates depression at 8/10 and anxiety at 9/10. Rates anger/irritability at 7/10. Denies suicidal or homicidal ideation. No reports or observations of psychotic symptoms/behaviors, manic behaviors, obsessive/compulsive behaviors or trauma/PTSD. No reports of side effects from medications. They have also been trying to quit smoking, which has been a struggle. Denies any other substance use. The patient has also been dealing with stage 3 periodontal disease. This has led to a tooth extraction and discomfort, which has added to the patient's stress and anxiety. The patient has also been trying to lose weight but has been struggling to do so. Denies any other medical concerns at this time. Client is participating in individual therapy services. Screening [place] Suicide Severity Rating Scale (LF) Do you want to initiate with: Screener form ?1. Wish to be : Have yo u wished you were or wished you could go to sleep and not wake up?: No ?2. Suicidal Thoughts: Have you actually had any thoughts of killing yourself?: No ?6. Suicide Behaviour: Have you ever done anything,started to do anything, or prepared to end your life?: No ?Interpretation:: Low Risk CSSRS Interpretation and Follow Up Plan CSSRS Interpretation and Follow Up Plan CSSRS Screen documented using SF: Yes Moderate or High risk requir es selection of a follow up plan: CSSRS No/Low: intervention not needed at this time Examination Category Sub-Category Detail Notes Category Not es Psychiatry APPEARANCE: unable to assess - telephone appointment ATTITUDE: cooperative, nervous PSYCHOMOTOR ACTIVITY: unable to assess - telephone appointment ABNORMAL BODY MOVEMENTS: unable to asses s - telephone appointment ATTENTION: good ORIENTATION: person, place and ti me AFFECT: unable to assess - t elephone appointment, verbally full MOOD: anxious, depressed SPEECH: clear, normal/R/V/R INSIGHT: fair JUDGEMENT: fair THOUGHT PROCESS: intact, linear, goal -directed THOUGHT CONTENT: unremarkable PERCEPTUAL DISORDERS: no perceptual diso rder noted CURRENT SUICIDALITY: denies CURRENT HOMICIDALITY: denies INTELLIGENCE (estimate): average
--- OUTSIDE RECORDS SUMMARY | 2024-06-18 19:14 | XMS_ITS ---
Author Organization [facility] Address [address] [place] [address] Care Team Providers Care Dairy Store Manager Name Role Phone Match, [facility] Primary Care Prov ider Damari Armstrong Unavailable [phone] REASON FOR VISIT discuss meds Medications Medication SIG (Take, Route, Frequency, Duration) [...] ice a day for 5 days Active Prazosin HCl 2 MG 2 capsules at bedtim e Orally Once a day for 30 days Active lamoTRIgine 200 MG 1 tablet Orally Once a day for 30 days Active clonazePAM 0.5 MG 0.5-1 tablet as need ed Orally Once a day for 30 days 03/10/2024 Active lamoTRIgine 200 MG 1 tablet Orally Once a day for 5 days Active busPIRone HCl 30 MG 0.5 tablet in mornin g and evening, 1 tablet in afternoon Orally three times a day for 5 days Active PROzac 40 MG 2 capsules Orally On ce a day for 30 days Active Prazosin HCl 2 MG 2 capsules at bedtim e Orally Once a day for 30 days Active Propranolol HCl 20 MG 1 tablet Orally Tw ice a day for 30 days Active busPIRone HCl 30 MG 0.5 tablet in mornin g and evening, 1 tablet in afternoon Orally three times a day for 30 days Active Social History Sex Assigned At : Social History Observation Description Sex Assigned At Male Encounters Encounter Location Date Provider Diagnosis [address] [place] [address] 05/25/2024 Damari Lazcano Plan Of Treatment No Information Progress Notes * Lee MYERSDOB: 8 (34 yo M)Acc No.[id number]:05/25/2024 UNLOCKED PROGRESS NOTE Patient:?Lee MYERS Provider:?Damari Lazcano, LUCA, COMMUNICATION INSTRUCTOR, [facility]1990???Age:34 Y???Sex:Male Isael e:05/25/2024 [facility] [address] [id number] Pcp: [facility] Sy stems Check In:04:31 PM TITLE CLOSER Subjective: * Chief Complaints: * ???1. Discuss meds. * Medical History:? * Medications:?Taking Proprano lol HCl 20 MG Tablet 1 tablet Orally Twice a day , Taking busPIRone HCl 30 MG Tablet 0.5 tablet in morning and evening, 1 tablet in afternoon Orally three times a day , Taking PROzac 40 MG Capsule 2 capsules Orally Once a day , Taking Prazosin HCl 2 MG Capsule 2 capsules at bedtime Orally Once a day , Taking lamoTRIgine 200 MG Tablet 1 tablet Orally Once a day , Taking clonazePAM 0.5 MG Tablet 0.5-1 tablet as needed Orally Once a day , Taking Prazosin HCl 2 MG Capsule 2 capsules at bedtime Orally Once a day , Taking lamoTRIgine 200 MG Tablet 1 tablet Orally Once a day , Taking busPIRone HCl 30 MG Tablet 0.5 tablet in morning and evening, 1 tablet in afternoon Orally three times a day , Taking PROzac 40 MG Capsule 2 capsules Orally Once a day , Taking Propranolol HCl 20 MG Tablet 1 tablet Orally Twice a day , Unknown Varenicline Tartrate 1 MG Tablet 1 tablet after eating with a full glass of water Orally Once a day , Unknown ZyrTEC Allergy 10 MG Tablet 1 tablet Orally Once a day , Unknown Omeprazole 20 MG Capsule Delayed Release 1 capsule 30 minutes before morning meal Orally Once a day Objective: * Vitals:? Assessment: Plan: * Treatment: * * Electronic signature of Carmen Allred , [id number] on 06/18/2024 at 07:14 PM TITLE CLOSER Sign off status: Pending * Provider:?Damari Lazcano, DNP, COMMUNICATION INSTRUCTOR, PMHNP- Date:?05/25/2024 Generated for Printing/Faxing/eTransmitting on:?06/18/2024 07:14 PM TITLE CLOSER
--- OUTSIDE RECORDS SUMMARY | 2024-06-18 19:14 | XMS_ITS ---
Author Organization [facility] Address [address] [place] [address] Care Team Providers Care Data Management Specialist Name Role Phone [employer] [facility], [facility] Primary Care Prov ider Damari Armstrong [phone] REASON FOR VISIT Unable to reach client for appt Social History Sex Assigned At : Social History Observation Description Sex Assigned At Male Encounters Encounter Location Date Provider Diagnosis [address] [place] [place] [address] 05/25/2024 Damari Lazcano Plan Of Treatment No Information Progress Notes * Lee MYERSDOB: [birth year] (34 yo M)Acc No.[id number]:05/25/2024 Patient:?Lee MYERS :1990???Age:34 Y???Sex:Male Address:[address] [place], [address] * true * Date:? 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
--- OUTSIDE RECORDS SUMMARY | 2024-06-18 19:14 | XMS_ITS | Patient Health Record ---
Author Organization [facility] Address [address] [place] [address] Care Team Providers Care Air Sampling And Monitoring Name Role Phone [employer], [facility] Primary Care Prov spring Unavailable Damari Lazcano Unavailable [phone] Angelica Barone Unavailable [phone] Lida Tao Unavailable [phone] Allergies Allergen (clinical drug ingredient) Drug/Non Drug Allergy documented on EMR Reaction Allergy Type Onset Date Status No Known Drug Allergy Unknown Drug Allergy Active Reason For Referral No Information Medications Medication SIG (Take, Route, Frequency, Duration) Notes Start Date End Date Status clonazePAM 0.5 MG 1 tablet Orally Once a day for 30 days As needed 06/09/2024 Active Prazosin HCl 2 MG 2 capsules at bedtim e Orally Once a day for 30 days Active lamoTRIgine 200 MG 1 tablet Orally Once a day for 30 days Active clonazePAM 0.5 MG 1 tablet as needed O rally Once a day for 30 days 06/09/2024 Active busPIRone HCl 30 MG 0.5 tablet in mornin g and evening, 1 tablet in afternoon Orally three times a day for 5 days Active PROzac 40 MG 2 capsules Orally On ce a day for 30 days Active busPIRone HCl 30 MG 0.5 tablet in mornin g and evening, 1 tablet in afternoon Orally three times a day for 30 days Active lamoTRIgine 200 MG 1 tablet Orally Once a day for 5 days Active clonazePAM 0.5 MG 0.5-1 tablet as need ed Orally Once a day for 30 days 03/10/2024 Active Omeprazole 20 MG 1 capsule 30 minutes [...] day for 30 days Active Social History Tobacco Use: Social History Observation Description Date Details (start date - stop date) Current Smoker NA - NA Sex Assigned At : Social History Observation Description Sex Assigned At Male Dont use, Tobacco Use/Smoking Question Answer Notes Are you a current every day smoker Additional Findings: Tobacco User Moderate cigar ette smoker (10-19 cigs/day) PRAPARE Question Answer Notes Date Completed/Updated: 09/01/2019 What is your current housing situation? I have h ousing Are you worried about losing your housing? No What is the highest level of school that you have finished? High school diploma or GED What is your current work situation? Oth erwise unemployed but not seeking work (ex. 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 Check all that apply Food,Medicine or any health care (medical, dental, mental health or vision) Has lack of transportation k ept you from medical appointments, meetings, work or from getting things needed for daily living? Yes, it has kept me from medical appointments or from getting my medications,Yes, it has kept me from non-medical meetings, appointments, work, or getting things needed for daily living How often do you see or talk to people that you care about and feel close to? (For example: talking to friends on the phone, visiting friends or family, going to methodist or club meetings) More than 5 times a week How stressed are you? Stress is when someone feels tense, nervous, anxious, or can\t sleep at night because their mind is troubled Very much In the past year have you sp ent more than 2 nights in a row in a [place] health care facility, residential, senior living center, or juvenile correctional facility? No Are you a refugee? No What country are you from? [place] Do you feel physically and e motionally safe where you currently live? Yes In the past year, have you b een afraid of your partner or ex-partner? No PRAPARE Score: 9 Section Notes: Additional Social History 10/15/2023: History of trauma, [...] OCD Lives with partner and two dogs Additional Social History 10/15/2023: History of trauma, details unknown, with Dx of PTSD Multiple anxiety-related diagnoses - phobia of blood, panic disorder, ELOISA, OCD Lives with partner and two dogs Additional Social History 10/15/2023: History of trauma, details unknown, with Dx of PTSD Multiple anxiety-related diagnoses - phobia of blood, panic disorder, ELOISA, OCD Lives with partner and two dogs Problems Problem Type SNOMED Code ICD Code Onset Dates Problem Status W/U Status Risk Notes Problem Fear of blood (529447141) Fear of blood (F40.230) Active confirmed Problem 38831343 Tobacco dependence (F17.200) Active confirmed Problem Hypertension (60262725) Hypertension (I10) Active confirmed Problem Panic disorder (371163333) Panic disorder (F41.0) Active confirmed Problem Sleep apnea (95626428) Sleep apnea (G47.30) Active confirmed Problem Major depressive disorder (875366708) MDD (major depressive disorder) (F32.9) Active confirmed Problem Disorder caused by alcohol (disorder) (114241290) Alcohol use disorder (F10.99) Active confirmed Problem 863742013 Obesity (BMI 30-39.9) (E66.9) Active confirmed Problem Posttraumatic stress disorder (95281688) Post traumatic stress disorder (PTSD) (F43.10) Active confirmed Problem Generalized anxiety disorder (79970792) Anxiety, generalized (F41.1) Active confirmed Problem Obsessive-compuls jr disorder (199172752) Obsessive-compul sive disorder, unspecified (F42.9) Active confirmed Problem Cannabis dependence (12325754) Cannabis use disorder, severe, dependence (F12.20) Active confirmed Problem Alcohol dependence (72907623) Severe alcohol use disorder (F10.20) Active confirmed Encounters Encounter Location Date Provider Diagnosis [facility] [address] [address] 06/25/2023 Angelica Barone Anxiety, generalized F41.1 ; Panic disorder F41.0 ; Post traumatic stress disorder (PTSD) F43.10 and Obsessive-compulsive disorder, unspecified F42.[address] [place] [address] 10/08/2023 Damari Lazcano Anxiety, generalized F41.1 ; Panic disorder F41.0 ; Post traumatic stress disorder (PTSD) F43.10 and Obsessive-compulsive disorder, unspecified F42.9 [facility] [address] [place] [address] 10/23/2023 Damari Lazcano Post traumatic stress disorder (PTSD) F43.[address] [place] [address] 02/10/2024 Damari Lazcano Anxiety, generalized F41.1 ; Panic disorder F41.0 ; MDD (major depressive disorder) F32.9 and Post traumatic stress disorder (PTSD) F43.[address] [address] 03/10/2024 Damari Neno [address] [address] 03/10/2024 Damari Neno [address] [address] 03/12/2024 Damarigeneva Lazcano Obsessive-compulsive disorder, unspecified F42.[address] [address] 04/06/2024 Damarigeneva Lazcano Obsessive-compulsive disorder, unspecified F42.9 ; Anxiety, generalized F41.1 and MDD (major depressive disorder) F32.[address] [address] 05/07/2024 Damari Lazcano Obsessive-compulsive disorder, unspecified F42.9 and MDD (major depressive disorder) F32.[address] [address] 05/25/2024 Damari Lazcano [address] [address] 07/09/2023 Lida Tao Severe alcohol use disorder F10.20 ; Obsessive-compulsive disorder, unspecified F42.9 ; Cannabis use disorder, severe, dependence F12.20 ; Fear of blood F40.230 ; Post traumatic stress disorder (PTSD) F43.10 ; Anxiety, generalized F41.1 and Panic disorder F41.[address] [address] 10/15/2023 Damari Lazcano MDD (major depressive disorder) F32.9 ; Anxiety, generalized F41.1 ; Panic disorder F41.0 ; Post traumatic stress disorder (PTSD) F43.10 and Obsessive-compulsive disorder, unspecified F42.[address] [address] 12/05/2023 Damari Sabblut MDD (major depressive disorder) F32.9 ; Anxiety, generalized F41.1 ; Panic disorder F41.0 ; Post traumatic stress disorder (PTSD) F43.10 and Obsessive-compulsive disorder, unspecified F42.[address] [place] [address] 12/20/2023 Damari Sabblut MDD (major depressive disorder) F32.9 ; Anxiety, generalized F41.1 ; Panic disorder F41.0 ; Post traumatic stress disorder (PTSD) F43.10 and Obsessive-compulsive disorder, unspecified F42.[address] [place] [address] 02/12/2024 Damari Sabblut MDD (major depressive disorder) F32.9 ; Anxiety, generalized F41.1 ; Panic disorder F41.0 ; Post traumatic stress disorder (PTSD) F43.10 and Obsessive-compulsive disorder, unspecified F42.[address] [place] [address] 04/13/2024 Damari Sabblut MDD (major depressive disorder) F32.9 ; Anxiety, generalized F41.1 ; Panic disorder F41.0 ; Post traumatic stress disorder (PTSD) F43.10 and Obsessive-compulsive disorder, unspecified F42.[address] [place] [address] 05/14/2024 Damari Sabblut MDD (major depressive disorder) F32.9 ; Anxiety, generalized F41.1 ; Panic disorder F41.0 ; Post traumatic stress disorder (PTSD) F43.10 ; Obsessive-compulsive disorder, unspecified F42.9 and Medication management Z79.[address] [place] [address] 06/09/2024 Damari Sabblut MDD (major depressive disorder) F32.9 ; Anxiety, generalized F41.1 ; Panic disorder F41.0 ; Post traumatic stress disorder (PTSD) F43.10 ; Obsessive-compulsive disorder, unspecified F42.9 and Medication management Z79.899 Assessments Encounter Date Diagnosis (ICD Code) Assessment Notes Treatment Notes Treatment Clinical Notes Section Notes 07/09/2023 Obsessive-compu lsive disorder, unspecified (ICD-10 - F42.9) Mood stabilizer education - reviewed side effects which may include decreases WBCs, SJS, hepatotoxicity. 07/09/2023 Severe alcohol use disorder (ICD-10 - F10.20) 06/25/2023 Anxiety, generalized (ICD-10 - F41.1) 10/15/2023 MDD (major depressive disorder) (ICD-10 - F32.9) 10/08/2023 Anxiety, generalized (ICD-10 - F41.1) 10/23/2023 Post traumatic stress disorder (PTSD) (ICD-10 - F43.10) 12/05/2023 MDD (major depressive disorder) (ICD-10 - F32.9) 12/20/2023 MDD (major depressive disorder) (ICD-10 - F32.9) 02/12/2024 MDD (major depressive disorder) (ICD-10 - F32.9) 02/10/2024 Anxiety, generalized (ICD-10 - F41.1) 03/12/2024 Obsessive-compu lsive disorder, unspecified (ICD-10 - F42.9) 04/13/2024 MDD (major depressive disorder) (ICD-10 - F32.9) 04/06/2024 Obsessive-compu lsive disorder, unspecified (ICD-10 - F42.9) 05/14/2024 MDD (major depressive disorder) (ICD-10 - F32.9) Continue psychotherapy as scheduled. 05/07/2024 Obsessive-compu lsive disorder, unspecified (ICD-10 - F42.9) 06/09/2024 MDD (major depressive disorder) (ICD-10 - F32.9) Continue psychotherapy as scheduled. 06/09/2024 Anxiety, generalized (ICD-10 - F41.1) Continue psychotherapy as scheduled. 05/07/2024 MDD (major depressive disorder) (ICD-10 - F32.9) 05/14/2024 Anxiety, generalized (ICD-10 - F41.1) Continue psychotherapy as scheduled. 04/06/2024 Anxiety, generalized (ICD-10 - F41.1) 04/13/2024 Anxiety, generalized (ICD-10 - F41.1) 12/20/2023 Anxiety, generalized (ICD-10 - F41.1) 02/12/2024 Anxiety, generalized (ICD-10 - F41.1) 02/10/2024 Panic disorder (ICD-10 - F41.0) 12/05/2023 Anxiety, generalized (ICD-10 - F41.1) 10/15/2023 Anxiety, generalized (ICD-10 - F41.1) 10/08/2023 Panic disorder (ICD-10 - F41.0) 06/25/2023 Panic disorder (ICD-10 - F41.0) 07/09/2023 Cannabis use disorder, severe, dependence (ICD-10 - F12.20) 07/09/2023 Fear of blood (ICD-10 - F40.230) 06/25/2023 Post traumatic stress disorder (PTSD) (ICD-10 - F43.10) 10/08/2023 Post traumatic stress disorder (PTSD) (ICD-10 - F43.10) 12/05/2023 Panic disorder (ICD-10 - F41.0) 10/15/2023 Panic disorder (ICD-10 - F41.0) 12/20/2023 Panic disorder (ICD-10 - F41.0) [facility] checked - no concerns Increasing clonazepam from 5 to 10 tablets per month to help with anxiety-provoking dental and medical appointments, tests, and procedures he has coming up. 02/10/2024 MDD (major depressive disorder) (ICD-10 - F32.9) 02/12/2024 Panic disorder (ICD-10 - F41.0) [place] Increasing clonazepam from 5 to 10 tablets per month to help with anxiety-provoking dental and medical appointments, tests, and procedures he has coming up. 04/06/2024 MDD (major depressive disorder) (ICD-10 - F32.9) 04/13/2024 Panic disorder (ICD-10 - F41.0) [place] 04/13/2024 - no concerns 05/14/2024 Panic disorder (ICD-10 - F41.0) [place] 05/14/2024 - no concerns. Client received RF on 05/08/2024 so not filling today. Continue psychotherapy as scheduled. 06/09/2024 Panic disorder (ICD-10 - F41.0) [place] 06/09/2024 - no concerns. Continue psychotherapy as scheduled. 06/09/2024 Post traumatic stress disorder (PTSD) (ICD-10 - F43.10) Continue psychotherapy as scheduled. 05/14/2024 Post traumatic stress disorder (PTSD) (ICD-10 - F43.10) Continue psychotherapy as scheduled. 04/13/2024 Post traumatic stress disorder (PTSD) (ICD-10 - F43.10) 02/10/2024 Post traumatic stress disorder (PTSD) (ICD-10 - F43.10) 02/12/2024 Post traumatic stress disorder (PTSD) (ICD-10 - F43.10) 12/20/2023 Post traumatic stress disorder (PTSD) (ICD-10 - F43.10) 12/05/2023 Post traumatic stress disorder (PTSD) (ICD-10 - F43.10) 10/08/2023 Obsessive-compu lsive disorder, unspecified (ICD-10 - F42.9) 10/15/2023 Post traumatic stress disorder (PTSD) (ICD-10 - F43.10) 06/25/2023 Obsessive-compu lsive disorder, unspecified (ICD-10 - F42.9) 07/09/2023 Post traumatic stress disorder (PTSD) (ICD-10 - F43.10) Antidepressant education - reviewed side effects which may include increased risk of suicide, anxiety, sleep disturbance, nausea, dry mouth, increased bruising, sexual dysfunction, barbara, wt gain, and serotonin syndrome. 07/09/2023 Anxiety, generalized (ICD-10 - F41.1) 10/15/2023 Obsessive-compu lsive disorder, unspecified (ICD-10 - F42.9) 12/05/2023 Obsessive-compu lsive disorder, unspecified (ICD-10 - F42.9) 12/20/2023 Obsessive-compu lsive disorder, unspecified (ICD-10 - F42.9) 02/12/2024 Obsessive-compu lsive disorder, unspecified (ICD-10 - F42.9) 04/13/2024 Obsessive-compu lsive disorder, unspecified (ICD-10 - F42.9) 05/14/2024 Obsessive-compu lsive disorder, unspecified (ICD-10 - F42.9) Continue psychotherapy as scheduled. 06/09/2024 Obsessive-compu lsive disorder, unspecified (ICD-10 - F42.9) Continue psychotherapy as scheduled. 06/09/2024 Medication management (ICD-10 - Z79.899) May self-administer medications or be administered own oral medications per [place] protocols. Provided informed consent with understanding of side effects, adverse effects, risks and benefits as well as alternative treatments as previously discussed and with the above recommended medications & other aspects of the treatment program. Agrees to return sooner if symptoms worsen or suicidal or homicidal ideations occur. 05/14/2024 Medication management (ICD-10 - Z79.899) May self-administer medications or be administered own oral medications per [place] protocols. Provided informed consent with understanding of side effects, adverse effects, risks and benefits as well as alternative treatments as previously discussed and with the above recommended medications & other aspects of the treatment program. Agrees to return sooner if symptoms worsen or suicidal or homicidal ideations occur. 07/09/2023 Panic disorder (ICD-10 - F41.0) Benzodiazepine education - reviewed side effects which may include drowsiness, falls, MVAs, memory problems, sleep disturbance, tolerance and addiction, respiratory depression (particularly when combined with other [employer] depressants). [place] Reasons, potential benefits, interactions and side effects of all medications were discussed. The Patient/Guardian asked appropriate questions, appeared to understand the answers, and decided to accept the treatment and continue being followed. Alternatives and expected course without treatment were reviewed. The Patient/Guardian is aware of the need to contact the office or return for an earlier appointment if any problems or concerns arise. May also contact the 24-hour crisis hotline (R), refer to the closest emergency room or call 911 if new symptoms arise of existing symptoms worsen. The Patient/Guardian is aware that this would apply to symptoms like: suicidal ideation, homicidal ideation, high risk behaviors, manic symptoms, psychotic symptoms, physical symptoms, or any other symptoms that may be dangerous to self or others. Greater than 50% of time spent on coordination and counseling where psychopharmacology as well as psychotherapeutic interventions were discussed along with review of treatments in the past. Education provided concerning need for adequate hydration. Patient/Guardian verbalized understanding of education, treatment plan and follow up. May self-administer or be administered own oral medication per [place] Protocols. Provided informed consent with understanding of side effects, risks and benefits as well as alternative treatments as previously discussed and with the above recommended medications ang other aspects of the treatment program. Agrees to return sooner if symptoms worsen or suicidal or homicidal ideations occur. support and education provided concerning illness and treatment plan, risks and benefits, pt verbalized understanding of the same and agreeable 12/05/2023 Other Continue psychotherapy as scheduled. May self-administer medications or be administered own oral medications per [place] protocols. Provided informed consent with understanding of side effects, adverse effects, risks and benefits as well as alternative treatments as previously discussed and with the above recommended medications & other aspects of the treatment program. Agrees to return sooner if symptoms worsen or suicidal or homicidal ideations occur. 12/20/2023 Other Continue psychotherapy as scheduled. May self-administer medications or be administered own oral medications per [place] protocols. Provided informed consent with understanding of side effects, adverse effects, risks and benefits as well as alternative treatments as previously discussed and with the above recommended medications & other aspects of the treatment program. Agrees to return sooner if symptoms worsen or suicidal or homicidal ideations occur. 10/15/2023 Other Continue psychotherapy as scheduled. May self-administer medications or be administered own oral medications per [place] protocols. Provided informed consent with understanding of side effects, adverse effects, risks and benefits as well as alternative treatments as previously discussed and with the above recommended medications & other aspects of the treatment program. Agrees to return sooner if symptoms worsen or suicidal or homicidal ideations occur. 04/13/2024 Other Continue psychotherapy as scheduled. May self-administer medications or be administered own oral medications per [place] protocols. Provided informed consent with understanding of side effects, adverse effects, risks and benefits as well as alternative treatments as previously discussed and with the above recommended medications & other aspects of the treatment program. Agrees to return sooner if symptoms worsen or suicidal or homicidal ideations occur. 02/12/2024 Other Client had refills sent on 02/10/2024 May self-administer medications or be administered own oral medications per [place] protocols. Provided informed consent with understanding of side effects, adverse effects, risks and benefits as well as alternative treatments as previously discussed and with the above recommended medications & other aspects of the treatment program. Agrees to return sooner if symptoms worsen or suicidal or homicidal ideations occur. Plan Of Treatment No Information Insurance Providers Payer Name Payer Address Payer Phone Subscriber Number Group Number Insured Name Patient Relationship to Insured Coverage Start Date Coverage End Date [employer] [address] [place] [address] [id number] Zellerma n, Lee Self - patient is the insured [address] [place] [address] [id number] Zellerma n, Lee Self - patient is the insured 0 0 MEDICAID [employer] PHARMACEUTICAL DEVELOPMENT TECHNICIAN [address] [place] [address] [id number] Zellerma n, Lee Self - patient is the insured 0 0 [employer] TECHNICIAN [address] [place] [address] [id number] Zellerma n, Lee Self - patient is the insured 0 [employer] [address] [place] [address] [id number] Zellerma n, Lee Self - patient is the insured 0 Medications Administered Medication Instructions Date of Administration Dosage Notes Vivitrol 11/11/2019 380 mg Harbor Engineer A lkermes. Pt tolerated well. Voiced no questions or concerns at present time. Vivitrol 12/09/2019 380 mg [employer] Engineer A lkermes. Pt tolerated well,. Voiced no questions or concerns at present time. Vivitrol 01/13/2020 380 mg [employer] Engineer A lkermes. Pt tolerated well. Voiced no questions or concerns at present time. Medical (General) History Medical History History ICD Code Alcohol use disorder Depression Alcohol use disorder Sleep apnea G47.30 Hypertension I10 chronic sinusitis Surgical History Surgery Date(Month/Year)
--- OUTSIDE RECORDS SUMMARY | 2024-06-18 20:24 | XMS_ITS | Clinical Summary ---
Author Organization [facility] Address [address] [place] [address]. [place] [address] Care Team Providers Care Folder Seamer Name Role Phone Jeet Hanley MD Primary Care Provider [phone] Social History Tobacco Use Types Packs/Day Years [...] age to complete this topic Care Teams Folder Seamer Relationship Specialty Start Date End Date Jeet Hanley MD [address] [facility] [address] [place] [address] PCP - General 01/12/13
--- OUTSIDE RECORDS SUMMARY | 2024-06-18 20:24 | XMS_ITS | Encounter Summary ---
Author Organization [facility] Address [address] [place] [address]. [place] [address] Care Team Providers Care Grating Machine Operator Name Role Phone Jeet Hanley MD Primary Care Provider [phone] Encounter Details Date Type Department Care Team [...] on filedocumented in this encounter Care Teams Grating Machine Operator Relationship Specialty Start Date End Date Jeet Hanley MD [address] [facility] [address] [place] [address] PCP - General 01/12/13 documented as of this encounter
--- OUTSIDE RECORDS SUMMARY | 2024-06-18 20:24 | XMS_ITS | Encounter Summary ---
Author Organization [facility] Address [facility] [place], [place] [id number] [place] [address] Care Team Providers Care Teletype Operator Name Role Phone Jeet Hanley MD Primary Care Provider [phone] Encounter Details Date Type Department Care Team (Late st Contact Info) Description 09/12/2006 Emergency [facility] [place] [address] MD [address] [place] [address] [place] [address] Social History Tobacco Use Types Packs/Day Years [...] on filedocumented in this encounter Care Teams Teletype Operator Relationship Specialty Start Date End Date Jeet Hanley MD [address] [facility] [address] [place] [id number] PCP - General 01/12/13 documented as of this encounter
--- OUTSIDE RECORDS SUMMARY | 2024-06-18 20:24 | XMS_ITS | Encounter Summary ---
Author Organization [facility] Address [address] [place] [address]. [place], [place] [address] [place] [address] Care Team Providers Care Accounting Assistant Name Role Phone Jeet Hanley MD Primary Care Provider [phone] Encounter Details Date Type Department Care Team (Late st Contact Info) Description 02/08/1991 [place] [address] , Generic ConversionMD Social History Tobacco Use [...] on filedocumented in this encounter Care Teams Accounting Assistant Relationship Specialty Start Date End Date Jeet Hanley MD [address] [place] [address] PCP - General 01/12/13 documented as of this encounter
--- OUTSIDE RECORDS SUMMARY | 2024-06-18 20:24 | XMS_ITS | Encounter Summary ---
Author Organization [facility] Address [address] [place] [address]. [place], [place] [address] [place] [address] Care Team Providers Care Last Greaser Name Role Phone Jeet Hanley MD Primary Care Provider [phone] Encounter Details Date Type Department Care Team (Late st Contact Info) Description 01/12/2013 Emergency [facility] [place] [address] Toñito Cedillo MD Social History Tobacco Use [...] complication documented in this encounter Care Teams Last Greaser Relationship Specialty Start Date End Date Jeet Hanley MD [address] [facility] [address] [place] [address] PCP - General 01/12/13 documented as of this encounter
--- OUTSIDE RECORDS SUMMARY | 2024-06-18 20:25 | XMS_ITS | Referral Summary ---
Author Organization [facility] Address [address] [place] [address] Care Team Providers Care Corn Cutter Name Role Phone Dorothea Cisneros Primary Care [...] 06/18/2019 Assessment & Plan (07/23/2019 12:28 PM MEDICAL RADIATION THERAPIST): Pt appears more calm than I've ever [...] on file Legal Sex Male 6:48 PM MEDICAL RADIATION THERAPIST Gender Identity Male 07/21/2019 1:21 AM MEDICAL RADIATION THERAPIST Sexual Orientation Meléndez 07/21/2019 1: 21 AM MEDICAL RADIATION THERAPIST Last Filed Vital Signs Vital Sign Reading [...] Plan of Treatment Not on file Insurance [facility] Care Teams Corn Cutter Relationship Specialty Start Date End Date Dorothea Cisneros PA [address] [facility] [place] [address] [facility] - General 08/11/19
--- OUTSIDE RECORDS SUMMARY | 2024-06-18 20:25 | XMS_ITS | Encounter Summary ---
Author Organization [facility] Healthcare Address [address] [place] [address] Care Team Providers Care Examination Grader Name Role Phone Dorothea Cisneros Primary Care Provider + Encounter Details Date Type Department Care Team (Latest Contact Info) Description 11/03/2023 7:17 PM CDT - 11/03/2023 11:59 PM CDT Hospital Encounter [address] [address] Sore throat Discharge Disposition: Discharge to home [...] on file Legal Sex Male 6:48 PM AUTOMOBILE MECHANIC HELPER Gender Identity Male 07/21/2019 1:21 AM AUTOMOBILE MECHANIC HELPER Sexual Orientation Meléndez 07/21/2019 1: 21 AM AUTOMOBILE MECHANIC HELPER documented as of this encounter Medications at [...] growth of pathogens. Comment:Testing performed by : [facility], [address] [place]., [address] Throat 11/03/2023 3:48 PM CDT 11/04/2023 3:04 AM CDT Narrative [facility] - 11/05/2023 7:41 AM CDT Testing performed by [facility] Microbiology Laboratory ([phone]). Maty Quintero NP LAB MICROBIOLOGY - GENERAL GUNJAN MELÉNDEZ Final Result [facility] [address] [address] Department [place] [address] documented in this encounter Visit Diagnoses Diagnosis Sore throat Acute pharyngitis documented in this encounter Care Teams Examination Grader Relationship Specialty Start Date End Date Dorothea Cisneros PA [address] [facility] [address] [place] [address] PCP - General 08/11/19 documented as of this encounter
--- OUTSIDE RECORDS SUMMARY | 2024-06-18 20:25 | XMS_ITS | Encounter Summary ---
Author Organization [facility] Address [address] [address] Care Team Providers Care Court Liaison Name Role Phone Dorothea Cisneros Primary Care Provider + Reason for Referral * Sleep Medicine (Routine) - Closed Specialty Diagnoses / Procedures Referred By Susana t Referred To Contact Diagnoses JULIA (obstructive sleep apnea) Procedures Portable/Home Sleep Study Gaurav Schilling MD [address] [facility] [address] [place] [address] Phone: tel: fax: [address] [address] Referral ID Status Reason Start Date Expiration Date Visits Re quested Visits Authorized [id number] Closed 10/24/2021 11/23/2022 1 1 Encounter Details Date Type Department Care Team (Late st Contact Info) Description 10/24/2021 11:30 AM CDT Office Visit [facility] Pulmonology & Sleep Clinic [address] [address] Gaurav Schilling MD [address] [facility] [address] [place] [address] JULIA (obstructive sleep apnea) (Primary [...] on file Legal Sex Male 6:48 PM CONSTRUCTION PLUMBER Gender Identity Male 07/21/2019 1:21 AM CONSTRUCTION PLUMBER Sexual Orientation Meléndez 07/21/2019 1: 21 AM CONSTRUCTION PLUMBER documented as of this encounter Last Filed [...] Body Mass Index 46.19 05/09/2021 11:24 AM CONSTRUCTION PLUMBER documented in this encounter Progress Notes * [...] MD SLEEP CENTER ORDERABLES F inal Result [facility] SLEEP MEDICINE [address] [place] [address], [facility] documented in this encounter Visit Diagnoses Diagnosis [...] 11/15/2023 added in this encounter Care Teams Court Liaison Relationship Specialty Start Date End Date Dorothea Cisneros PA [address] [facility] [address] [address] PCP - General 08/11/19 documented as of this encounter
--- OUTSIDE RECORDS SUMMARY | 2024-06-18 20:25 | XMS_ITS | Encounter Summary ---
Author Organization [facility] Healthcare Address [address] [place] [address] Care Team Providers Care Pumping Station Engineer Name Role Phone Dorothea Cisneros Primary Care Provider + Encounter Details Date Type Department Care Team (Latest Contact Info) Description 02/11/2023 3:08 PM CDT - 02/11/2023 11:59 PM CDT Hospital Encounter [address] [address] Nasal lesion Discharge Disposition: Discharge to home [...] on file Legal Sex Male 6:48 PM SPECIAL AGENT Gender Identity Male 07/21/2019 1:21 AM SPECIAL AGENT Sexual Orientation Meléndez 07/21/2019 1: 21 AM SPECIAL AGENT documented as of this encounter Medications at [...] No polymorphonuclear leukocytes seen. No organisms seen. [facility] Report Final Report: Few Mixed microorganisms. [facility] Organism MIXED MICROORGANISMS. [facility] Wound (Nares, left) 02/11/2023 3:08 PM CDT 02/11/2023 6:30 PM CDT Narrative [facility] - 02/15/2023 11:11 AM CDT Specimen received on an ESwab. Left nares Testing performed by [facility] Microbiology Laboratory ([phone]) Specimens submitted from normally sterile body sites [...] us Henry Clark MD LAB MICROBIOLOGY - [place] ORDERABLES Final Result [facility] One [facility] Department [place] [address] documented in this encounter Visit Diagnoses Diagnosis Nasal lesion Other diseases of nasal cavity and sinuses documented in this encounter Care Teams Pumping Station Engineer Relationship Specialty Start Date End Date Dorothea Cisneros PA [address] [facility] [address] [address] PCP - General 08/11/19 documented as of this encounter
--- OUTSIDE RECORDS SUMMARY | 2024-06-18 20:25 | XMS_ITS | Encounter Summary ---
Author Organization [facility] Address [address] [place] [address] Phone Care Team Providers Care Navy Fighter Pilot Name Role Phone Dorothea Cisneros Primary Care Provider + Reason for Visit * Reason Comments nasal lesion R15 * Consultation (Routine) - Closed Specialty Diagnoses / Procedures Referred By Contac t Referred To Contact Otolaryngology Diagnoses Nasal lesion Dorothea Cisneros PA [address] [facility] [address] [address] Phone: tel: fax: [facility] Advanced Medicine ([facility]) - [facility] ENT [address] [facility] 11th [place] [address] [place] [address] Phone: tel: fax: Referral ID Status Reason Start Date Expiration Date V isits Requested Visits Authorized [id number] Closed Specialty Services Required 01/23/2023 02/22/2024 1 1 Encounter Details Date Type Department Care Team (Late st Contact Info) Description 02/11/2023 2:40 PM CDT Office Visit [facility] Advanced [facility] ([facility]) [facility] ENT [address] [facility] Medicine 11th [place] [address] [place] [address] Henry Clark MD [address] [place] [address] Nasal lesion (Primary Dx) Social History Tobacco [...] on file Legal Sex Male 6:48 PM SCENIC ARTS SUPERVISOR Gender Identity Male 07/21/2019 1:21 AM SCENIC ARTS SUPERVISOR Sexual Orientation Meléndez 07/21/2019 1: 21 AM SCENIC ARTS SUPERVISOR documented as of this encounter Progress Notes * Henry lCark MD - 02/11/2023 2:40 PM CDT Images [...] disease) Hypertension 2019 Peptic ulceration 2004 Seizures ([facility]) 2011 Sleep apnea Likely Substance abuse ([facility]) ([facility]) 2008 Past Surgical History: Procedure Laterality Date [...] resident's note. Henry Clark M.D., M.A., F.A.C.S. Operations Coordinator and Credit Underwriter Division of Rhinology and Anterior Skull Base Surgery [facility] [address] [place] [address] [place] [address] - Appointments - Clinical coordinator (Chhaya Figueroa LPN) - Clinical fax - Academic office - Academic office fax EMAIL: [email or web address] documented in this encounter Plan of Treatment Not on file documented as of this encounter Results * Aerobic and anaerobic culture and gram stain Wound Nares, left (02/11/2023 3:08 PM CDT) Direct Specimen Exam Stain: No polymorphonuclear leukocytes seen. No organisms seen. [facility] Report Final Report: Few Mixed microorganisms. [facility] Organism MIXED MICROORGANISMS. [facility] Wound (Nares, left) 02/11/2023 3:08 PM CDT 02/11/2023 6:30 PM CDT [facility]ative [facility] - 02/15/2023 11:11 AM CDT Specimen received on an ESwab. Left nares Testing performed by [facility] Microbiology Laboratory ([phone]) Specimens submitted from normally sterile body sites [...] 2019. Henry Clark MD LAB MICROBIOLOGY - [facility] [place] ORDERABLES Final Result [facility] One [facility] Department [place] [address] documented in this encounter Visit Diagnoses Diagnosis [...] 2 (two) times a day 01/08/2023 02/11/2023 [id number] (CORTISPORIN) 3.5-10,000-1 mg/mL-unit/mL-% otic suspension Administer 2 [...] 02/11/2023 documented in this encounter Care Teams Navy Fighter Pilot Relationship Specialty Start Date End Date Dorothea Cisneros PA [address] [facility] [address] [place] [address] PCP - General 08/11/19 documented as of this encounter
--- OUTSIDE RECORDS SUMMARY | 2024-06-18 20:25 | XMS_ITS | Encounter Summary ---
Author Organization [facility] Address [address] [facility] [address] [place] [address] Care Team Providers Care Wire Bound Box Machine Helper Name Role Phone Dorothea Cisneros Primary Care Provider + Reason for Visit * Reason Comments Congestion Nasal congestion,R e ar pain, cough, little bit sore throat x 4 days Encounter Details Date Type Department Care Team (Late st Contact Info) Description 01/08/2023 3:00 PM CDT Office Visit [facility] Family Medicine [address] [facility] [address] [place] [address] Dorothea Cisneros PA [address] [place] [address] [address] [place] [address] RLS (restless legs syndrome) (Primary Dx); Acute [...] on file Legal Sex Male 6:48 PM ADHESION TESTER Gender Identity Male 07/21/2019 1:21 AM ADHESION TESTER Sexual Orientation Meléndez 07/21/2019 1: 21 AM ADHESION TESTER documented as of this encounter Last Filed [...] OF CARE TEST ORDER ST[place]LEY Final Result [facility] [address] [facility] [address] [place] [address] documented in this encounter Visit Diagnoses Diagnosis RLS (restless legs syndrome)- Primary Restless legs syndrome (RLS) Acute cough Acute otitis externa of right ear, unspecified type JULIA (obstructive sleep apnea) Obstructive sleep apnea (adult) (pediatric) Morbid obesity with BMI of 45.0-49.9, adult ([facility]) documented in this encounter Historical Medications * This list may reflect changes made after this encounter. Lunesta 1 mg tablet Take 1 tablet (1 mg total) by mouth nightly 12/12/2022 11/15/2023 added in this encounter Additional Health Concerns Infection Onset Date Last Indicated Resolved Time COVID: Suspected 01/08/2023 01/08/2023 01/08/2023 3:26 PM CDT documented as of this encounter Care Teams Wire Bound Box Machine Helper Relationship Specialty Start Date End Date Dorothea Cisneros PA [address] [facility] [address] [place] [address] PCP - General 08/11/19 documented as of this encounter
--- OUTSIDE RECORDS SUMMARY | 2024-06-18 20:25 | XMS_ITS | Encounter Summary ---
Author Organization [facility] Address [address] [facility] [address] [place] [address] Care Team Providers Care Intelligence Research Specialist Name Role Phone Dorothea Cisneros Primary Care Provider + Reason for Visit * Reason Onset Date Comments Appointment 10/17/2021 Encounter Details Date Type Department Care Team (Late st Contact Info) Description 10/17/2021 Telephone [facility] Pulmonology & Sleep Clinic [address] [address] Camille Mckeon MA Appointment Social [...] on file Legal Sex Male 6:48 PM COLLISION ESTIMATOR Gender Identity Male 07/21/2019 1:21 AM COLLISION ESTIMATOR Sexual Orientation Meléndez 07/21/2019 1: 21 AM COLLISION ESTIMATOR documented as of this encounter Miscellaneous Notes * Telephone Encounter - Camille Mckeon MA - 10/17/2021 10:25 AM CDT Left VM for patient to bring chip from cpap machine to appt. documented in this encounter Plan of Treatment Not on file documented as of this encounter Visit Diagnoses Not on filedocumented in this encounter Care Teams Intelligence Research Specialist Relationship Specialty Start Date End Date Dorothea Cisneros PA [address] [facility] [address] [address] PCP - General 08/11/19 documented as of this encounter
--- OUTSIDE RECORDS SUMMARY | 2024-06-18 20:25 | XMS_ITS | Encounter Summary ---
Author Organization [facility] Address [address] [facility] [address] [place] [address] Care Team Providers Care Hydrochloric Acid Operator Name Role Phone Dorothea Cisneros Primary Care Provider + Reason for Visit * Reason Comments Follow-up Encounter Details Date Type Department Care Team (Late st Contact Info) Description 02/08/2022 2:00 PM CDT Office Visit [facility] Pulmonary [place] [address] [facility] [address] [place] [address] Dana Armenta, GROCERY STORE MANAGER [address] [facility] [address] [address] JULIA (obstructive sleep apnea) (Primary [...] on file Legal Sex Male 6:48 PM BEHAVIOR ANALYST Gender Identity Male 07/21/2019 1:21 AM BEHAVIOR ANALYST Sexual Orientation Meléndez 07/21/2019 1: 21 AM BEHAVIOR ANALYST documented as of this encounter Last [...] 02/11/2023 added in this encounter Care Teams Hydrochloric Acid Operator Relationship Specialty Start Date End Date Dorothea Cisneros PA [address] [facility] [address] [place] [address] PCP - General 08/11/19 documented as of this encounter
--- OUTSIDE RECORDS SUMMARY | 2024-06-18 20:25 | XMS_ITS | Encounter Summary ---
Author Organization [facility] Address [address] [facility] [address] [place] [address] Care Team Providers Care Lye Boiler Name Role Phone Dorothea Cisneros Primary Care Provider + Encounter Details Date Type Department Care Team (Late st Contact Info) Description 01/24/2023 1:00 PM CDT Office Visit [facility] Pulmonary [place] [address] [facility] [address] [place] [address] Dana Armenta, RACETRACK STEWARD [address] [facility] [address] [address] JULIA (obstructive sleep apnea) (Primary [...] on file Legal Sex Male 6:48 PM SEISMIC OBSERVER Gender Identity Male 07/21/2019 1:21 AM SEISMIC OBSERVER Sexual Orientation Meléndez 07/21/2019 1: 21 AM SEISMIC OBSERVER documented as of this encounter Last Filed [...] 15 mg tablet Take by mouth nightly [id number] (CORTISPORIN) 3.5-10,000-1 mg/mL-unit/mL-% otic suspension Administer 2 [...] (pediatric) documented in this encounter Care Teams Lye Boiler Relationship Specialty Start Date End Date Dorothea Cisneros PA [address] [facility] [address] [place] [address] PCP - General 08/11/19 documented as of this encounter
--- OUTSIDE RECORDS SUMMARY | 2024-06-18 20:25 | XMS_ITS | Encounter Summary ---
Author Organization [facility] Healthcare Address [address] [place] [address] Care Team Providers Care Medical Device Assembler Name Role Phone Dorothea Cisneros Primary Care Provider + Reason for Visit * Reason Comments Other Headache and neck pa in - Entered by patient. Sx started out as a headache for two days, developed numbness in hand and arm, woke up the next morning with neck pain and stiffness. Wants to R/O meningitis. 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 Gender Identity Male 07/21/2019 1:21 AM COMPENSATION AND HRIS ANALYST Sexual Orientation Meléndez 07/21/2019 1: 21 AM COMPENSATION AND HRIS ANALYST documented as of this encounter Last Filed Vital Signs Vital Sign Reading Time Taken Comments Blood Pressure 140/98 11/03/2023 3:18 PM CDT Pulse 86 11/03/2023 3:18 PM CDT Temperature 36 ??C (96.8 ??F) 11/03/2023 3:18 PM CDT Respiratory Rate 12 11/03/2023 3:18 PM CDT Oxygen Saturation 96% 11/03/2023 3:18 PM CDT Inhaled Oxygen Concentration - - Weight 126.2 kg (278 lb 3.2 oz) 024 3:18 PM CDT Height 165.1 cm (5' 5 ) 11/03/2023 3:18 PM CDT Body Mass Index 46.29 11/03/2023 3:18 PM CDT documented in this encounter Progress Notes * Maty Quintero NP - 11/03/2023 3:30 PM CDT Images from the original note were not included. Subjective/Objective Patient ID: Lee Osborne is a 33 y.o. male. Chief Complaint Other (Headache and neck pain - Entered by patient. Sx started out as a headache for two days, developed numbness in hand and arm, woke up the next morning with neck pain and stiffness. Wants to R/O meningitis. ) Patient presents to convenient care with complaints of neck pain and stiffness, headache and sore throat. Patient states he started with a headache approximately 4 days ago, and then 2-3 days ago he started with neck pain and had numbness in right upper extremity and right lower extremity. States the numbness has completely resolved. He now also has a sore throat. Patient states he is concerned for meningitis. Patient denies fever, chills or body aches. Patient denies any known exposures or recent travel. Patient has tried topical diclofenac and aspirin with no relief for neck pain. Patient denies any recent trauma.Patient denies numbness in genital area or loss of bowel or bladder function. Review of Systems Constitutional: Negative for appetite change, chills, diaphoresis, fatigue and fever. HENT: Positive for sore throat. Negative for congestion, rhinorrhea and sinus pressure. Respiratory: Negative. Cardiovascular: Negative for chest pain. Gastrointestinal: Negative for abdominal pain, nausea and vomiting. Genitourinary: Negative for dysuria. Musculoskeletal: Positive for back pain, neck pain and neck stiffness. Skin: Negative. Negative for rash. Neurological: Positive for numbness (States the numbness has resolved) and headaches. Negative for dizziness, speech difficulty, weakness and light-headedness. Physical Exam Vitals and nursing note reviewed. Constitutional: General: He is not in acute distress. Appearance: Normal appearance. He is not ill-appearing. HENT: Mouth/Throat: Lips: Menands. Mouth: Mucous membranes are moist. Pharynx: Oropharynx is clear. Uvula midline. No pharyngeal swelling, oropharyngeal exudate or posterior oropharyngeal erythema. Tonsils: No tonsillar exudate. 0 on the right. 0 on the left. Cardiovascular: Rate and Rhythm: Normal rate and regular rhythm. Pulses: Normal pulses. Heart sounds: Normal heart sounds. Pulmonary: Effort: Pulmonary effort is normal. Breath sounds: Normal breath sounds. Musculoskeletal: Cervical back: Neck supple. No swelling, edema, erythema, tenderness or bony tenderness. Pain with movement present. No muscular tenderness. Decreased range of motion (States secondary to pain he is unable to move neck [id number], or to extend neck. Patient is able to put chin to chest without difficulty). Comments: Patient has full range of motion and sensation to bilateral upper and lower extremities. Strength equal bilaterally Lymphadenopathy: Cervical: No cervical adenopathy. Right cervical: No superficial cervical adenopathy. Left cervical: No superficial cervical adenopathy. Skin: General: Skin is warm and moist. Capillary Refill: Capillary refill takes less than 2 seconds. Findings: No erythema or rash. Neurological: Mental Status: He is alert and oriented to person, place, and time. Cranial Nerves: Cranial nerves 2-12 are intact. Sensory: Sensation is intact. Motor: Motor function is intact. Coordination: Coordination is intact. Gait: Gait is intact. Vitals: 11/03/23 1518 BP: 140/98 Pulse: 86 Resp: 12 Temp: 36 ??C (96.8 ??F) SpO2: 96% Weight: 126.2 kg (278 lb 3.2 oz) Height: 165.1 cm (5' 5 ) No results found. Past Medical History: Diagnosis Date Alcohol abuse 2008 Anxiety Dental disease Depression 2003 GERD (gastroesophageal reflux disease) Hypertension 2019 Peptic ulceration 2004 Seizures ([facility]) 2011 Sleep apnea Likely Substance abuse (CMS/HCC) ([facility]) 2008 Patient Active Problem List Diagnosis Exercise-induced tachycardia Single episode of elevated blood pressure Anxiety Alcohol dependence ([facility]) Essential hypertension JULIA (obstructive sleep apnea) Nasal lesion Current Outpatient Medications: busPIRone (BUSPAR) 30 mg tablet, 1/2 in the morning, 1 tab in the afternoon, 1/2 at night, Disp: , Rfl: clonazePAM (KlonoPIN) 0.5 mg tablet, TAKE 1/2 TABLET BY MOUTH ONCE A DAY NEEDED, Disp: , Rfl: lamoTRIgine (LaMICtal) 100 mg tablet, Take 1 tablet (100 mg total) by mouth daily, Disp: , Rfl: lamoTRIgine (LaMICtal) 200 mg tablet, Take 1 [...] 2 (two) times a day, Disp:, Rfl: semaglutide (Wegovy) 0.25 mg/0.5 mL auto-injector, Inject 0.5 mL (0.25 mg total) under the skin every 7 days, Disp: 2 mL, Rfl: 1 varenicline tartrate (CHANTIX) 1 mg tablet, TAKE 1 TABLET(1 MG) BY MOUTH TWICE DAILY WITH FULL GLASS OF WATER, Disp: 60 tablet, Rfl: 1 FLUoxetine (PROzac) 40 mg capsule, Take 1 capsule (40 mg total) by mouth daily (Patient taking differently: Take 1 capsule (40 mg total) by mouth daily 2 capsules daily), Disp: 30 capsule, Rfl: 0 No Known Allergies Social History Tobacco Use Smoking status: Every Day Current packs/day: 0.50 Average packs/day: 0.5 packs/day for 15.0 years (7.5 ttl pk-yrs) Types: Cigarettes, Cigarillos Smokeless tobacco: Never Substance and Sexual Activity Drug use: Not Currently Types: Marijuana Sexual activity: Yes Partners: Male control/protection: None Alcohol Use: Alcohol Misuse (05/09/2021) AUDIT-C Frequency of Alcohol Consumption: 2-3 times a week Average Number of Drinks: 3 or 4 Frequency of Binge Drinking: Never Past Surgical History: Procedure Laterality Date NO PAST SURGERIES Assessment/Plan Diagnoses and all orders for this visit: Sore throat (Primary) - POCT rapid strep A - Throat culture Throat; Future Nonintractable headache, unspecified chronicity pattern, unspecified headache type Neck pain History of numbness Recent Results (from the past 4 hour(s)) POCT rapid strep A Collection Time: 11/03/23 3:43 PM Result Value Ref Range Rapid Strep A, POC Negative Negative -discussed with patient that we are unable to rule out meningitis in convenient Care or herniated disc, or causes of his right-sided numbness.. Patient states he is very concerned that he may have meningitis. Patient does not have fever or mental status change, however it is concerning that he had numbness on right side of body earlier in the week, he does not currently have numbness in his neuroexam is normal today. However patient is not able to fully turn neck side to side. Would recommend that he go to emergency room for further evaluation. We are unable to do x-rays in convenient care today. Strep is negative we will send throat culture to confirm no bacterial infection in the throat. Patient Education: -patient states he has follow up appointment with PCP on Saturday. -discussed red flags with patient such as numbness and genital area, loss of bowel or bladder function, numbness, visual changes, speech difficulty, drooping loss of sensation on 1 side of body, fever, mental status change etc. to call 911 Disposition Treatment plan including expectations, follow up, and return precautions discussed with patient/parent, verbalizes understanding. Medication dosage, use, and potential adverse reactions discussed with patient/parent. Advised to follow up with PCP if symptoms do not resolve as expected or sooner if condition worsens. Signs/symptoms warranting ER evaluation reviewed. Patient and/or guardian was given an opportunity to ask questions, questions answered. Maty Quintero NP This office note has been partially dictated using Biogazelle software, and as a result portions of the record may have been created with this software. Occasional wrong-word or '[id number]' substitutions may have occurred due to the inherent limitations of voice recognition software. Read the chartcarefully and recognize, using context, where substitutions have occurred. Cosigned by Fly Ballard MD at 11/03/2023 9:42 PM CDT documented in this encounter Plan of Treatment Not on file documented as of this encounter Procedures Procedure Name Priority Date/Time Associated Diagnosis Comments POCT RAPID STREP Routine 11/03/2023 3:43 PM CDT Sore throat documented in this encounter Results * Throat culture Throat (11/03/2023 3:48 PM CDT) Report Final Report: No growth of pathogens. Comment:Testing performed by : [facility], [address] [facility], [place]., [address] Throat 11/03/2023 3:48 PM CDT 11/04/2023 3:04 AM CDT Narrative VALORIE OTILIA - 11/05/2023 7:41 AM CDT Testing performed by [facility] Laboratory ([phone]). us Maty Quintero NP LAB MICROBIOLOGY - GENERAL GUNJAN MELÉNDEZ Final Result VALORIE [address] [place] [address] * POCT rapid strep A (11/03/2023 3:43 PM CDT) Rapid Strep A, POC Negative Negative Swab 11/03/2023 3:43 PM CDT us Maty Quintero NP POINT OF CARE TEST ORDERABLES F inal Result documented in this encounter Visit Diagnoses Diagnosis Sore throat- Primary Acute pharyngitis Nonintractable headache, unspecified chronicity pattern, unspecified headache type Neck pain Cervicalgia History of numbness Sore throat Acute pharyngitis documented in this encounter Historical Medications * This list may reflect changes made after this encounter. lamoTRIgine (LaMICtal) 200 mg tablet Take 1 tablet (200 mg total) by mouth daily 10/06/2023 added in this encounter Care Teams Medical Device Assembler Relationship Specialty Start Date End Date Dorothea Cisneros PA [address] [facility] [address] [place] [address] PCP - General 08/11/19 documented as of this encounter
--- OUTSIDE RECORDS SUMMARY | 2024-06-18 20:25 | XMS_ITS | Encounter Summary ---
Author Organization [facility] Healthcare Address [address] [place] [address] Care Team Providers Care Medical Policy Specialist Name Role Phone Dorothea Cisneros Primary Care Provider + Reason for Referral * Sleep Medicine (Routine) - Closed Specialty Diagnoses / Procedures Referred By Susana narayanan Referred To Contact Diagnoses JULIA (obstructive sleep apnea) Procedures Portable/Home Sleep Study Gaurav Schilling MD [address] [place] [address] DR [address] [place] [address] Phone: tel: fax: [address] [phone] Referral ID Status Reason Start Date Expiration Date Visits Re quested Visits Authorized [id number] Closed 10/24/2021 11/23/2022 1 1 Reason for Visit * Sleep Medicine (Routine) - Closed Specialty Diagnoses / Procedures Referred By Susana narayanan Referred To Contact Diagnoses JULIA (obstructive sleep apnea) Procedures Portable/Home Sleep Study Gaurav Schilling MD [address] [place] [address] DR [address] [place] [address] Phone: tel: fax: [address] [phone] Referral ID Status Reason Start Date Expiration Date Visits Re quested Visits Authorized [id number] Closed 10/24/2021 11/23/2022 1 1 Encounter Details Date Type Department Care Team (Latest Contact Info) Description 12/27/2021 9:00 AM CDT - 12/27/2021 11:59 PM CDT Hospital Encounter [facility] Sleep Lab [address] [place] [address] JULIA (obstructive sleep apnea) Discharge Disposition: Discharge [...] on file Legal 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 Gender Identity Male 07/21/2019 1:21 AM WOOD MILL SUPERVISOR Sexual Orientation Meléndez 07/21/2019 1: 21 AM WOOD MILL SUPERVISOR documented as of this encounter Medications at [...] ORDERABLES F inal Result B SLEEP MEDICINE [address] [place] [address] documented in this encounter Visit Diagnoses Diagnosis JULIA (obstructive sleep apnea) Obstructive sleep apnea (adult) (pediatric) documented in this encounter Care Teams Medical Policy Specialist Relationship Specialty Start Date End Date Dorothea Cisneros PA [address] [facility] [address] [address] PCP - General 08/11/19 documented as of this encounter
--- OUTSIDE RECORDS SUMMARY | 2024-06-18 20:25 | XMS_ITS | Encounter Summary ---
Author Organization [facility] Healthcare Address [address] [place] [address] Care Team Providers Care Recreation Worker Name Role Phone Dorothea Cisneros Primary Care Provider + Encounter Details Date Type Department Care Team (Late st Contact Info) Description 12/29/2021 Telephone [facility] Sleep Lab [address] [place] [address] Gaurav Schilling MD [address] [facility] [address] [address] Social History Tobacco Use Types [...] on file Legal Sex Male 6:48 PM ENGINE RESEARCH ENGINEER Gender Identity Male 07/21/2019 1:21 AM ENGINE RESEARCH ENGINEER Sexual Orientation Meléndez 07/21/2019 1: 21 AM ENGINE RESEARCH ENGINEER documented as of this encounter Miscellaneous Notes * Telephone Encounter - Rocío Perry - 12/29/2021 12:30 PM CDT Called to go over home sleep study results. AHI 31.5. Order for auto cpap was sent to [facility]. Lee understood results and will call if he has any questions in the future. documented in this encounter Plan of Treatment Not on file documented as of this encounter Visit Diagnoses Not on filedocumented in this encounter Care Teams Recreation Worker Relationship Specialty Start Date End Date Dorothea Cisneros PA [address] [facility] [address] [place] [address] PCP - General 08/11/19 documented as of this encounter
--- OUTSIDE RECORDS SUMMARY | 2024-06-18 20:25 | XMS_ITS | Encounter Summary ---
Author Organization [facility] Address [address] [facility] [address] [place] [address] Care Team Providers Care Obstetrics Nurse Name Role Phone Dorothea Cisneros Primary Care Provider + Reason for Visit * Reason Onset Date Comments Prior Auth 02/20/2023 INGA James Encounter Details Date Type Department Care Team (Late st Contact Info) Description 02/20/2023 Telephone [facility] Family Medicine [address] [facility] [address] [place] [address] Dorothea Cisneros PA [address] [place] [id number] Prior Auth (INGA James) Social History [...] file Legal Sex Male 6:48 PM MANAGER OUTPATIENT Gender Identity Male 07/21/2019 1:21 AM MANAGER OUTPATIENT Sexual Orientation Meléndez 07/21/2019 1: 21 AM MANAGER OUTPATIENT documented as of this encounter Miscellaneous Notes * Telephone Encounter - Gisele Loza MA - 02/20/2023 2:23 PM CDT Done and waiting on reply. * Telephone Encounter - Gisele Loza MA - 02/20/2023 1:15 PM CDT PA on [employer] for covermymeds DE [id number] documented in this encounter Plan of Treatment Not on file documented as of this encounter Visit Diagnoses Not on filedocumented in this encounter Care Teams Obstetrics Nurse Relationship Specialty Start Date End Date Dorothea Cisneros PA [address] [place] [address] PCP - General 08/11/19 documented as of this encounter
--- OUTSIDE RECORDS SUMMARY | 2024-06-18 20:25 | XMS_ITS | Clinical Summary ---
Author Organization [facility] Address [address] [place] [address] Care Team Providers Care Research Development Manager Name Role Phone Dorothea Cisneros Primary [...] 06/18/2019 Assessment & Plan (07/23/2019 12:28 PM CIGAR MAKING MACHINE SUPERVISOR): Pt appears more calm than I've [...] on file Legal Sex Male 6:48 PM CIGAR MAKING MACHINE SUPERVISOR Gender Identity Male 07/21/2019 1:21 AM CIGAR MAKING MACHINE SUPERVISOR Sexual Orientation Meléndez 07/21/2019 1: 21 AM CIGAR MAKING MACHINE SUPERVISOR Obstetrics History Last Filed Vital Signs [...] patient's age to complete this topic Insurance [facility] Care Teams Research Development Manager Relationship Specialty Start Date End Date Dorothea Cisneros PA [address] [facility] [place] [address] PCP - General 08/11/19
--- OUTSIDE RECORDS SUMMARY | 2024-06-18 20:25 | XMS_ITS | Encounter Summary ---
Author Organization [facility] Address [address] [facility] [address] [place] [address] Care Team Providers Care Applications Sales Consultant Name Role Phone Dorothea Cisneros Primary Care Provider + Reason for Visit * Reason Comments Nicotine Dependence Obesity Encounter Details Date Type Department Care Team (Late st Contact Info) Description 02/15/2023 10:45 AM CDT Telemedicine [facility] Family Medicine [address] [facility] [address] [place] [address] Dorothea Cisneros PA [address] [place] [address] [address] [place] [address] Cigarette nicotine dependence without complication [...] on file Legal Sex Male 6:48 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 The patient visit started at 10:48 [...] documented as of this encounter Care Teams Applications Sales Consultant Relationship Specialty Start Date End Date Dorothea Cisneros PA [address] [facility] [address] [place] [address] PCP - General 08/11/19 documented as of this encounter
--- OUTSIDE RECORDS SUMMARY | 2024-06-18 20:25 | XMS_ITS | Encounter Summary ---
Author Organization [facility] Healthcare Address [address] [place] [address] Care Team Providers Care Beam House Inspector Name Role Phone Dorothea Cisneros Primary Care Provider + Reason for Visit * Reason Comments Leg Pain Had head and neck pa in a week ago, now having bilateral leg numbness Encounter Details Date Type Department Care Team (Late st Contact Info) Description 11/15/2023 10:45 AM CDT Office Visit [facility] Medical Group Family Medicine [address] [address] Dorothea Cisneros PA [address] [place] [address] Numbness and tingling of both feet [...] on file Legal Sex Male 6:48 PM INSTITUTE DIRECTOR Gender Identity Male 07/21/2019 1:21 AM INSTITUTE DIRECTOR Sexual Orientation Meléndez 07/21/2019 1: 21 AM INSTITUTE DIRECTOR documented as of this encounter Last [...] included. Subjective/Objective Visit date: 11/15/2023 Patient ID: Lee Osborne is a 33 [...] documented as of this encounter Care Teams Beam House Inspector Relationship Specialty Start Date End Date Dorothea Cisneros PA [address] [facility] [address] [address] PCP - General 08/11/19 documented as of this encounter
--- OUTSIDE RECORDS SUMMARY | 2024-06-18 20:26 | XMS_ITS | Encounter Summary ---
Author Organization [facility] Facility Care Team Providers Care Distribution Superintendent Name Role Phone Dorothea Cisneros Primary [...] on file Legal Sex Male 6:48 PM FORESTRY PATROLMAN Gender Identity Male 07/21/2019 1:21 AM FORESTRY PATROLMAN Sexual Orientation Meléndez 07/21/2019 1: 21 AM FORESTRY PATROLMAN documented as of this encounter Plan of Treatment Not on file documented as of this encounter Visit Diagnoses Not on filedocumented in this encounter Care Teams Distribution Superintendent Relationship Specialty Start Date End Date Dorothea Cisneros PA [address] [place] [address] PCP - General 05/30/19 08/10/19 documented as of this encounter
--- OUTSIDE RECORDS SUMMARY | 2024-06-18 20:26 | XMS_ITS | Encounter Summary ---
Author Organization [facility] Medical Group Address [address] [facility] [address] [place] [address] Care Team Providers Care Vice President Of Customer Service Name Role Phone Dorothea Cisneros Primary Care Provider + Encounter Details Date Type Department Care Team (Late st Contact Info) Description 07/06/2019 Telephone [facility] Family Medicine [address] [facility] [address] [place] [address] [place] [address] [place] [address] [address] [place] [address] Social History Tobacco Use Types Packs/Day Years Used Date Smoking Tobacco: Every Day Alcohol Use Standard Drinks/Week Comments Yes 0 (1 standard drink = 0.6 oz pur e alcohol) PHQ-2 Answer Date Recorded PHQ-2 Score 4 06/04/2019 Sex and Gender Information Value Date Recorded Sex Assigned at Not on file Legal Sex Male 6:48 PM AVAYA ENGINEER Gender Identity Male 07/21/2019 1:21 AM AVAYA ENGINEER Sexual Orientation Meléndez 07/21/2019 1: 21 AM AVAYA ENGINEER documented as of this encounter Miscellaneous Notes * Telephone Encounter - Gisele Loza MA - 07/06/2019 4:50 PM CST Appt 07/08/19 A ENGINEER * Telephone Encounter - Dorothea Cisneros PA - 07/06/2019 4:32 PM AVAYA ENGINEER We really can't act on this w/o seeing him. A ENGINEER * Telephone Encounter - Gisele Loza MA - 07/06/2019 3:29 PM CST Per pt already had a steroid pack and was told might need a CT? See previous encounter from Corin. A ENGINEER * Telephone Encounter - Diane Harrison PA - 07/06/2019 1:37 PM AVAYA ENGINEER We can try adding a steroid pack if he wants that If he is, send out medrol dose pack for him A ENGINEER * Telephone Encounter - Lillian Jones MA - 07/06/2019 1:30 PM CST Pt was seen 06-19-2019 and he says his congestion is not any better. What can he do? A ENGINEER documented in this encounter Plan of Treatment Not on file documented as of this encounter Visit Diagnoses Not on filedocumented in this encounter Care Teams Vice President Of Customer Service Relationship Specialty Start Date End Date Dorothea Cisneros PA [address] [facility] [address] [address] PCP - General 05/30/19 08/10/19 documented as of this encounter
--- OUTSIDE RECORDS SUMMARY | 2024-06-18 20:26 | XMS_ITS | Encounter Summary ---
Author Organization [facility] Address [address] [place] [address] Care Team Providers Care Glass Silverer Name Role Phone Dorothea Cisneros Primary Care Provider + Encounter Details Date Type Department Care Team (Late st Contact Info) Description 06/22/2019 Telephone [facility] Family Medicine [address] [place] [address] [place] [address] [place] [address] [address] [place] [address] Social History Tobacco Use Types Packs/Day Years Used Date Smoking Tobacco: Every Day Alcohol Use Standard Drinks/Week Comments Yes 0 (1 standard drink = 0.6 oz pur e alcohol) PHQ-2 Answer Date Recorded PHQ-2 Score 4 06/04/2019 Sex and Gender Information Value Date Recorded Sex Assigned at Not on file Legal Sex Male 6:48 PM ORIENTOR Gender Identity Male 07/21/2019 1:21 AM ORIENTOR Sexual Orientation Meléndez 07/21/2019 1: 21 AM ORIENTOR documented as of this encounter Ordered Prescriptions Prescription Sig Dispense Quantity Refills Last Filled Start Date End Date busPIRone (BUSPAR) 7.5 mg tabletIndications: Generalized Anxiety Disorder Take 1 tablet (7.5 mg total) by mouth 2 (two) times a day 60 tablet 06/22/2019 07/23/2019 documented in this encounter Miscellaneous Notes * Telephone Encounter - Gisele Loza MA - 06/22/2019 1:07 PM CST Pt aware. NTOR * Telephone Encounter - Dorothea Cisneors PA - 06/22/2019 12:49 PM ORIENTOR I sent the buspar to bon. I didn't know if he lost the bottle or lost a paper script. NTOR * Telephone Encounter - Sindhu Carrillo - 06/22/2019 10:23 AM CST Wants to know about possibly getting a refill on buspirone 7.5 mg he lost the original. Would like a call back . NTOR documented in this encounter Plan of Treatment [...] documented as of this encounter Care Teams Glass Silverer Relationship Specialty Start Date End Date Dorothea Cisneros PA [address] [place] [id number] PCP - General 05/30/19 08/10/19 documented as of this encounter
--- OUTSIDE RECORDS SUMMARY | 2024-06-18 20:26 | XMS_ITS | Encounter Summary ---
Author Organization [facility] Facility Care Team Providers Care Financial Adviser Name Role Phone Dorothea Cisneros Primary Care [...] on file Legal Sex Male 6:48 PM BAND INSTRUMENT REPAIRER Gender Identity Male 07/21/2019 1:21 AM BAND INSTRUMENT REPAIRER Sexual Orientation Meléndez 07/21/2019 1: 21 AM BAND INSTRUMENT REPAIRER documented as of this encounter Plan of Treatment Not on file documented as of this encounter Visit Diagnoses Not on filedocumented in this encounter Care Teams Financial Adviser Relationship Specialty Start Date End Date Dorothea Cisneros PA [address] [facility] [place] [address] PCP - General 05/30/19 08/10/19 documented as of this encounter
--- OUTSIDE RECORDS SUMMARY | 2024-06-18 20:26 | XMS_ITS | Encounter Summary ---
Author Organization [facility] Address [address] [place] [address] Care Team Providers Care Sausage Stuffer Name Role Phone Dorothea Cisneros Primary Care Provider + Dorothea Cisneros Primary Care Provider + Encounter Details Date Type Department Care Team (Late st Contact Info) Description 07/24/2019 Telephone [facility] Family Medicine [address] [facility] [address] [place] [address] Fly Ballard MD [address] [place] [address] Social History Tobacco Use Types Packs/Day Years Used Date Smoking Tobacco: Former Smokeless Tobacco: Never Alcohol Use Standard Drinks/Week Comments Not Currently 2 (1 standard drink = 0.6 oz pur e alcohol) PHQ-2 Answer Date Recorded PHQ-2 Score 6 07/23/2019 Sex and Gender Information Value Date Recorded Sex Assigned at Not on file Legal Sex Male 6:48 PM MANAGER FRENCH Gender Identity Male 07/21/2019 1:21 AM MANAGER FRENCH Sexual Orientation Meléndez 07/21/2019 1: 21 AM MANAGER FRENCH documented as of this encounter Miscellaneous Notes * Telephone Encounter - Hina Bang - 07/24/2019 1:20 PM CST Pt sent an e-mail about being referred to psych I called pt to discuss this type of referral and left detailed message and also emailed him about the process. Mailing him the psych referral list as well. GER FRENCH documented in this encounter Plan of Treatment Not on file documented as of this encounter Visit Diagnoses Not on filedocumented in this encounter Care Teams Sausage Stuffer Relationship Specialty Start Date End Date Dorothea Cisneros PA [address] [facility] [facility] [address] [place] [address] PCP - General 08/11/19 Dorothea Cisneros PA [address] [facility] [address] [address] [place] [address] PCP - General 05/30/19 08/10/19 documented as of this encounter
--- OUTSIDE RECORDS SUMMARY | 2024-06-18 20:26 | XMS_ITS | Encounter Summary ---
Author Organization [facility] Address [address] [place] [address] Care Team Providers Care Foam Rubber Mixer Name Role Phone Unavailable Primary Care Provider Unavailabl e Encounter Details Date Type Department Care Team (Latest Contact Info) Description 12/25/2012 1:45 PM CDT Hospital Encounter [facility] Camille Phan, YEAST DISTILLER [address] [place] [address] Other malaise and fatigue Social History Tobacco Use Types Packs/Day Years Used Date Smoking Tobacco: Never Assessed Sex and Gender Information Value Date Recorded Sex Assigned at Not on file Legal Sex Male 6:48 PM SUPERINTENDENT STORAGE AREA Gender Identity Male 07/21/2019 1:21 AM SUPERINTENDENT STORAGE AREA Sexual Orientation Meléndez 07/21/2019 1: 21 AM SUPERINTENDENT STORAGE AREA documented as of this encounter Plan of Treatment Not on file documented as of this encounter Procedures Procedure Name Priority Date/Time Associated Diagnosis Comments UA WITH CULTURE REFLEX Routine 12/25/2012 1:48 PM CDT documented in this encounter Results * (ABNORMAL) UA with Culture Reflex (12/25/2012 1:48 PM CDT) Ur Collection Type CLEAN CATCH 12/25/2012 3:[address] [facility] [employer] HISTORICAL RESULTS Ur Culture Indicated? C&S NOT INDICATED 12/25/2012 3:04 PM CDT [facility] [employer] [place] HISTORICAL RESULTS Urine Color YELLOW YELLOW Urine Clarity CLEAR CLEAR Urine Glucose (UA) NORMAL NORMAL mg/dL Urine Bilirubin NEGATIVE NEGATIVE mg/dl Urine Ketones NEGATIVE NEGATIVE mg/dL Ur Specific [place] 1.022 1.005 - 1.025 Urine Blood NEGATIVE NEGATIVE mg/dl Urine pH 6.0 5.0 - 8.0 Urine Protein 10(H) NEGATIVE mg/dL Urine Urobilinogen NORMAL NORMAL mg/dL Urine Nitrite NEGATIVE NEGATIVE Ur Leukocyte Esterase NEGATIVE NEGATIVE Benita/ul Ur Microscopic Review Not Indicated 12/25/2012 1:48 PM CDT 12/25/2012 2:58 PM T Narrative [facility] HISTORICAL RESULTS - 12/25/2012 3:04 PM CDT FASTING 12 HOURS ? us Camille Phan NP LAB URINE ORDERABLES Final Result [facility] HISTORICAL RESULTS documented in this encounter Visit Diagnoses Diagnosis Other malaise and fatigue documented in this encounter
--- OUTSIDE RECORDS SUMMARY | 2024-06-18 20:26 | XMS_ITS | Encounter Summary ---
Author Organization [facility] Address [address] [place] [address] Care Team Providers Care Nurse School Name Role Phone Dorothea Cisneros Primary Care Provider + Reason for Visit * Reason Comments Anxiety lump on L arm, conge stion X 3 months Encounter Details Date Type Department Care Team (Late st Contact Info) Description 06/19/2019 10:30 AM ANALYTICAL CHEMIST Office Visit [facility] Family Medicine [address] [place] [address] Diane Harrison PA [address] [facility] [address] [place], [place] [id number] Flu-like symptoms (Primary Dx); Anxiety; Chronic sinusitis, [...] on file Legal Sex Male 6:48 PM ANALYTICAL CHEMIST Gender Identity Male 07/21/2019 1:21 AM ANALYTICAL CHEMIST Sexual Orientation Meléndez 07/21/2019 1: 21 AM ANALYTICAL CHEMIST documented as of this encounter Last Filed Vital Signs Vital Sign Reading Time Taken Comments Blood Pressure 142/84 06/19/2019 10:44 AM ANALYTICAL CHEMIST Pulse 103 06/19/2019 10:44 AM ANALYTICAL CHEMIST Temperature 37.6 ??C (99.6 ??F) 06/19/2019 1 0:44 AM ANALYTICAL CHEMIST Respiratory Rate 15 06/19/2019 10:4 4 AM ANALYTICAL CHEMIST Oxygen Saturation 96% 06/19/2019 10: 44 AM ANALYTICAL CHEMIST Inhaled Oxygen Concentration - - Weight 123.6 kg (272 lb 6.4 oz) 019 10:44 AM ANALYTICAL CHEMIST Height 167.6 cm (5' 6 ) 06/19/2019 10:4 4 AM ANALYTICAL CHEMIST Body Mass Index 43.97 06/19/2019 10:44 AM ANALYTICAL CHEMIST documented in this encounter Ordered Prescriptions Prescription [...] or sooner if worsening. Diane Harrison PA-C YTICAL CHEMIST documented in this encounter Plan of Treatment Not on file documented as of this encounter Procedures Procedure Name Priority Date/Time Associated Diagnosis Comments POCT INFLUENZA A/B Routine 06/19/2019 11 :03 AM ANALYTICAL CHEMIST Flu-like symptoms documented in this encounter Results * POCT influenza A/B (06/19/2019 11:03 AM ANALYTICAL CHEMIST) Rapid Influenza A Ag Negative Negative, Invalid Rapid Influenza B Ag Negative Negative, Invalid Nasal 06/19/2019 11:0 3 AM ANALYTICAL CHEMIST Diane XIONG POINT OF CARE TEST ORDER [...] documented as of this encounter Care Teams Nurse School Relationship Specialty Start Date End Date Dorothea Cisneros PA [address] [place] [address] PCP - General 05/30/19 08/10/19 documented as of this encounter
--- OUTSIDE RECORDS SUMMARY | 2024-06-18 20:26 | XMS_ITS | Encounter Summary ---
Author Organization [facility] Address [address] [facility] [address] [facility] [address] [place] [address] Care Team Providers Care Drying Supervisor Name Role Phone Dorothea Cisneros Primary Care Provider + Reason for Visit * Reason Onset Date Comments staus update 06/12/2019 Encounter Details Date Type Department Care Team (Late st Contact Info) Description 06/12/2019 Telephone [facility] Family Medicine [address] [facility] [address] [place] [address] [place] [address] [place] [address] staus update Social History Tobacco Use Types Packs/Day Years Used Date Smoking Tobacco: Every Day Alcohol Use Standard Drinks/Week Comments Yes 0 (1 standard drink = 0.6 oz pur e alcohol) PHQ-2 Answer Date Recorded PHQ-2 Score 4 06/04/2019 Sex and Gender Information Value Date Recorded Sex Assigned at Not on file Legal Sex Male 6:48 PM CLOSING MANAGER Gender Identity Male 07/21/2019 1:21 AM CLOSING MANAGER Sexual Orientation Meléndez 07/21/2019 1: 21 AM CLOSING MANAGER documented as of this encounter Ordered Prescriptions Prescription Sig Dispense Quantity Refills Last Filled Start Date End Date methylPREDNISolone (MEDROL DOSEPACK) 4 mg Dosepack Take as directed on package. 21 tablet 06/12/2019 9 documented in this encounter Miscellaneous Notes * Telephone Encounter - Dorothea Cisneros PA - 06/12/2019 12:20 PM CLOSING MANAGER sent ING MANAGER * Telephone Encounter - Cassandra Wood MA - 06/12/2019 11:40 AM CLOSING MANAGER Pt called back and uses [facility] in [place]. He is aware if this does not help we will consider CT sinuses. ING MANAGER * Telephone Encounter - Damari Mccabe RN - 06/12/2019 11:33 AM CST Left VM for patient to call back ING MANAGER * Telephone Encounter - Dorothea Cisneros PA - 06/12/2019 10:46 AM CLOSING MANAGER Get a pharmacy name and tell him I can send in a medrol (steroid) pack to open up his nose and decrease inflammation. If this doesn't work we need to consider a sinus CT ING MANAGER * Telephone Encounter - Damari Mccabe, WILLIAM - 06/12/2019 9:04 AM CST Finished antibiotic and still very congested especially the right side of his nose, not sleeping, only slight improvement. It's causing increase in anxiety. ING MANAGER documented in this encounter Plan of Treatment Not on file documented as of this encounter Visit Diagnoses Not on filedocumented in this encounter Care Teams Drying Supervisor Relationship Specialty Start Date End Date Dorothea Cisneros PA [address] [place] [id number] PCP - General 05/30/19 08/10/19 documented as of this encounter
--- OUTSIDE RECORDS SUMMARY | 2024-06-18 20:26 | XMS_ITS | Encounter Summary ---
Author Organization [facility] Healthcare Address [address] [place] [address] Care Team Providers Care Packing Inspector Name Role Phone Dorothea Cisneros Primary Care Provider + Encounter Details Date Type Department Care Team (Late st Contact Info) Description 08/08/2020 Patient Self-Triage [facility] [address] [place] [address] Mychart, Generic Provider [address] [place], [place] [id number] Social History Tobacco Use Types Packs/Day Years Used Date Smoking Tobacco: Former Smokeless Tobacco: Never Alcohol Use Standard Drinks/Week Comments Not Currently 2 (1 standard drink = 0.6 oz pur e alcohol) PHQ-2 Answer Date Recorded PHQ-2 Score 6 07/23/2019 Sex and Gender Information Value Date Recorded Sex Assigned at Not on file Legal Sex Male 6:48 PM SKI MAKER Gender Identity Male 07/21/2019 1:21 AM SKI MAKER Sexual Orientation Meléndez 07/21/2019 1: 21 AM SKI MAKER documented as of this encounter Plan of Treatment Not on file documented as of this encounter Visit Diagnoses Not on filedocumented in this encounter Care Teams Packing Inspector Relationship Specialty Start Date End Date Dorothea Cisneros PA [address] [facility] [place] [address] PCP - General 08/11/19 documented as of this encounter
--- OUTSIDE RECORDS SUMMARY | 2024-06-18 20:26 | XMS_ITS | Encounter Summary ---
Author Organization [facility] Healthcare Address [address] [place] [address] Care Team Providers Care Certified Phlebotomy Technician Name Role Phone Dorothea Cisneros Primary Care Provider + Encounter Details Date Type Department Care Team (Late st Contact Info) Description 02/25/2020 10:07 AM CDT - 02/25/2020 10:20 AM CDT Hospital Encounter [facility] Gaurav Schilling MD [address] [facility] [address] [address] Discharge Disposition: Discharge to home or self [...] on file Legal Sex Male 6:48 PM BULK STATION OPERATOR Gender Identity Male 07/21/2019 1:21 AM BULK STATION OPERATOR Sexual Orientation Meléndez 07/21/2019 1: 21 AM BULK STATION OPERATOR documented as of this encounter Medications [...] on filedocumented in this encounter Care Teams Certified Phlebotomy Technician Relationship Specialty Start Date End Date Dorothea Cisneros PA [address] [facility] [address] [place] [address] PCP - General 08/11/19 documented as of this encounter
--- OUTSIDE RECORDS SUMMARY | 2024-06-18 20:26 | XMS_ITS | Encounter Summary ---
Author Organization [facility] Healthcare Address [address] [place] [address] Care Team Providers Care Sales Engagement Executive Name Role Phone Dorothea Cisneros Primary Care Provider + Reason for Referral * Diagnostic Imaging (Routine) - Closed Specialty Diagnoses / Procedures Referred By Contac t Referred To Contact Diagnoses Right foot pain Procedures XR Foot Right 3+ Vw Dorothea C[facility]os [facility] [address] [place] [address] Phone: tel: fax: [address] [phone] Referral ID Status Reason Start Date Expiration Date Visits Re quested Visits Authorized [id number] Closed 05/09/2021 06/08/2022 1 1 TOLOGIC TECHNICIAN OPERATOR/ANALYST Reason for Visit * Diagnostic Imaging (Routine) - Closed Specialty Diagnoses / Procedures Referred By Susana t Referred To Contact Diagnoses Right foot pain Procedures XR Foot Right 3+ Vw Dorothea Cisneros PA [facility] [address] [place] [address] Phone: tel: fax: [address] [phone] Referral ID Status Reason Start Date Expiration Date Visits Re quested Visits Authorized [id number] Closed 05/09/2021 06/08/2022 1 1 Encounter Details Date Type Department Care Team (Latest Contact Info) Description 05/16/2021 1:07 PM CRYPTOLOGIC TECHNICIAN OPERATOR/ANALYST - 05/16/2021 11:59 PM CRYPTOLOGIC TECHNICIAN OPERATOR/ANALYST Hospital Encounter [facility] Diagnostic Imaging [address] [place] [address] Right foot pain Discharge Disposition: Discharge to [...] on file Legal Sex Male 6:48 PM CRYPTOLOGIC TECHNICIAN OPERATOR/ANALYST Gender Identity Male 07/21/2019 1:21 AM CRYPTOLOGIC TECHNICIAN OPERATOR/ANALYST Sexual Orientation Meléndez 07/21/2019 1: 21 AM CRYPTOLOGIC TECHNICIAN OPERATOR/ANALYST documented as of this encounter Medications at [...] Read Routine (OP Routine) 05/16/2021 1:21 PM CRYPTOLOGIC TECHNICIAN OPERATOR/ANALYST Right foot pain documented in this encounter Results * XR Foot Right 3+ Vw (05/16/2021 1:21 PM CRYPTOLOGIC TECHNICIAN OPERATOR/ANALYST) Anatomical Region Laterality Modality Lower Extremities, Foot Right Computed Radiography 05/16/2021 4:32 PM CRYPTOLOGIC TECHNICIAN OPERATOR/ANALYST Narrative 05/16/2021 4:33 PM CRYPTOLOGIC TECHNICIAN OPERATOR/ANALYST EXAM DESCRIPTION: ?XR FOOT RIGHT 3 OR [...] PM T: ??05/16/2021 4:33 PM Report ID: [id number] Reading Location: ??[id number] Procedure Note Devonte Emory rBiceno DO - 05/16/2021 EXAM DESCRIPTION: XR FOOT [...] Emory Whitney D.O. PS: PS Report ID: [id number] Reading Location: [id number] Dorothea Manzo IMG XR PROCEDURES Final Result documented in this encounter Visit Diagnoses Diagnosis Right foot pain Pain in soft tissues of limb documented in this encounter Care Teams Sales Engagement Executive Relationship Specialty Start Date End Date Dorothea Cisneros PA [address] [facility] [address] [address] PCP - General 08/11/19 documented as of this encounter
--- OUTSIDE RECORDS SUMMARY | 2024-06-18 20:26 | XMS_ITS | Encounter Summary ---
Author Organization [facility] Address [address] [facility] [address] [place] [address] Care Team Providers Care Employment Counselor Name Role Phone Dorothea Cisneros Primary Care Provider + Reason for Visit * Reason Onset Date Comments CT results 08/10/2019 Encounter Details Date Type Department Care Team (Late st Contact Info) Description 08/10/2019 Telephone [facility] Family Medicine [address] [facility] [address] [place] [phone] [place] [address] [place] [address] [address] [address] results Social History Tobacco Use Types Packs/Day Years Used Date Smoking Tobacco: Former Smokeless Tobacco: Never Alcohol Use Standard Drinks/Week Comments Not Currently 2 (1 standard drink = 0.6 oz pur e alcohol) PHQ-2 Answer Date Recorded PHQ-2 Score 6 07/23/2019 Sex and Gender Information Value Date Recorded Sex Assigned at Not on file Legal Sex Male 6:48 PM ANALYSIS MGR Gender Identity Male 07/21/2019 1:21 AM ANALYSIS MGR Sexual Orientation Meléndez 07/21/2019 1: 21 AM ANALYSIS MGR documented as of this encounter Miscellaneous Notes * Telephone Encounter - Damari Mccabe RN - 08/10/2019 5:00 PM CST Patient aware YSIS MGR * Telephone Encounter - Dorothea Cisneros PA - 08/10/2019 2:48 PM ANALYSIS MGR You can tell him there is some thickening of the RT maxillary sinus and he does have a deviated septum with swelling of the left nasal tissue as a result. They might recommend surgery but will need to see what ENT recommends first before he worries about that. YSIS MGR * Telephone Encounter - Damari Mccabe RN - 08/10/2019 1:41 PM CST Faxed and copy to [facility] YSIS MGR * Telephone Encounter - Lillian Chew - 08/10/2019 11:[address] results from [facility] ordered by INGA Cisneros results have not been readand patient would like me to send the results to another providers office for appointment tomorrow.Placed in [employer] (powering [employer])'s basket for review PT Phone [phone] [facility]'s office fax [phone] YSIS MGR documented in this encounter Plan of Treatment Not on file documented as of this encounter Visit Diagnoses Not on filedocumented in this encounter Care Teams Employment Counselor Relationship Specialty Start Date End Date Dorothea Cisneros PA [address] [place] [address] PCP - General 05/30/19 08/10/19 documented as of this encounter
--- OUTSIDE RECORDS SUMMARY | 2024-06-18 20:26 | XMS_ITS | Encounter Summary ---
Author Organization [facility] Healthcare Address [address] [place] [address] Care Team Providers Care Manager Intel Name Role Phone Dorothea Cisneros Primary Care Provider + Encounter Details Date Type Department Care Team (Late st Contact Info) Description 07/12/2019 4:39 PM ADMINISTRATIVE OFFICER - 07/12/2019 4:59 PM ADMINISTRATIVE OFFICER Hospital Encounter [facility] Emergency Department [address] [place] [address] Unknown, Notinfile Discharge Disposition: Left without being [...] on file Legal Sex Male 6:48 PM ADMINISTRATIVE OFFICER Gender Identity Male 07/21/2019 1:21 AM ADMINISTRATIVE OFFICER Sexual Orientation Meléndez 07/21/2019 1: 21 AM ADMINISTRATIVE OFFICER documented as of this encounter Medications [...] filedocumented in this encounter Care Teams Manager Intel Relationship Specialty Start Date End Date Dorothea Cisneros PA [address] [facility] [address] [place] [address] PCP - General 05/30/19 08/10/19 documented as of this encounter
--- OUTSIDE RECORDS SUMMARY | 2024-06-18 20:26 | XMS_ITS | Encounter Summary ---
Author Organization [facility] Facility Care Team Providers Care Laboratory Immunologist Name Role Phone Dorothea Cisneros Primary Care Provider + Encounter Details Date Type Department Care Team (Latest Contact Info) Description 08/24/2019 Travel Social History Tobacco Use Types Packs/Day Years Used Date Smoking Tobacco: Former Smokeless Tobacco: Never Alcohol Use Standard Drinks/Week Comments Not Currently 2 (1 standard drink = 0.6 oz pur e alcohol) PHQ-2 Answer Date Recorded PHQ-2 Score 6 07/23/2019 Sex and Gender Information Value Date Recorded Sex Assigned at Not on file Legal Sex Male 6:48 PM MANAGER CONTRACT Gender Identity Male 07/21/2019 1:21 AM MANAGER CONTRACT Sexual Orientation Meléndez 07/21/2019 1: 21 AM MANAGER CONTRACT documented as of this encounter Plan of Treatment Not on file documented as of this encounter Visit Diagnoses Not on filedocumented in this encounter Care Teams Laboratory Immunologist Relationship Specialty Start Date End Date Dorothea Cisneros PA [address] [place] [address] PCP - General 08/11/19 documented as of this encounter
--- OUTSIDE RECORDS SUMMARY | 2024-06-18 20:26 | XMS_ITS | Encounter Summary ---
Author Organization [facility] Medical [facility] Address [address] [place] [address] Care Team Providers Care Rib Cutter Name Role Phone Dorothea Cisneros Primary Care Provider + Reason for Visit * Reason Comments Hypertension Anxiety Encounter Details Date Type Department Care Team (Late st Contact Info) Description 07/23/2019 11:00 AM ONLINE MARKETING DIRECTOR Office Visit [facility] Family Medicine [address] [place] [phone] Dorothea Cisneros PA [address] [place] [phone] Anxiety (Primary Dx); Chronic nasal congestion; [...] on file Legal Sex Male 6:48 PM ONLINE MARKETING DIRECTOR Gender Identity Male 07/21/2019 1:21 AM ONLINE MARKETING DIRECTOR Sexual Orientation Meléndez 07/21/2019 1: 21 AM ONLINE MARKETING DIRECTOR documented as of this encounter Last Filed Vital Signs Vital Sign Reading Time Taken Comments Blood Pressure 138/96 07/23/2019 11:08 AM ONLINE MARKETING DIRECTOR Pulse 92 07/23/2019 11:08 AM ONLINE MARKETING DIRECTOR Temperature 36.8 ??C (98.3 ??F) 07/23/2019 1 1:08 AM ONLINE MARKETING DIRECTOR Respiratory Rate 16 07/23/2019 11:0 8 AM ONLINE MARKETING DIRECTOR Oxygen Saturation 98% 07/23/2019 11: 08 AM ONLINE MARKETING DIRECTOR Inhaled Oxygen Concentration - - Weight 125.6 kg (276 lb 12.8 oz) 2019 11:08 AM ONLINE MARKETING DIRECTOR Height 167.6 cm (5' 5.98 ) 07/23/2019 1 1:08 AM ONLINE MARKETING DIRECTOR Body Mass Index 44.7 07/23/2019 11:08 AM ONLINE MARKETING DIRECTOR documented in this encounter Ordered Prescriptions Prescription [...] a new pt. He had been to [facility] ER on 05/30 for anxiety, increased [...] 20mg. He was seeing a counselor at [facility] as well. I also added the doxy and claritin D. Pt sent a message on [employer] on 07/14 about his continuing palpitations and [...] was recommended as well. Pt presented to [facility] ER yet again yesterday with worsening [...] shared this with me. He went to [facility] for his second visit today. He felt [...] or fail to improve. Dorothea Cisneros PA-C NE MARKETING DIRECTOR NE MARKETING DIRECTOR documented in this encounter Miscellaneous Notes * Assessment & Plan Note - Dorothea Cisneros PA - 07/23/2019 12:27 PM ONLINE MARKETING DIRECTOR Associated Problem(s): Anxiety Pt appears more calm than I've ever seen him. Apologetic for refraining to acknowledge his drinkingissue. I increased his Buspar. He will stay on librium. No clonazepam unless he has a serious attack of anxiety. Continue counseling. I suggested he seek a 12 step program and he's open to this. No suicidal plans. NE MARKETING DIRECTOR documented in this encounter Plan of [...] 07/24/2019 added in this encounter Care Teams Rib Cutter Relationship Specialty Start Date End Date Dorothea Cisneros PA [address] [place] [address] PCP - General 05/30/19 08/10/19 documented as of this encounter
--- OUTSIDE RECORDS SUMMARY | 2024-06-18 20:26 | XMS_ITS | Encounter Summary ---
Author Organization [facility] Healthcare Address [address] [place] [address] Care Team Providers Care Recruiting Consultant Name Role Phone Unavailable Primary Care Provider Unavailabl e Encounter Details Date Type Department Care Team (Latest Contact Info) Description 01/26/2013 8:45 AM CDT Hospital Encounter [facility] OP Jeet Hanley MD [address] [facility] [address] [place] [address] Other malaise and fatigue; Benign essential hypertension; Obesity Social History Tobacco Use Types Packs/Day Years Used Date Smoking Tobacco: Never Assessed Sex and Gender Information Value Date Recorded Sex Assigned at Not on file Legal Sex Male 6:48 PM TITLE INVESTIGATOR Gender Identity Male 07/21/2019 1:21 AM TITLE INVESTIGATOR Sexual Orientation Meléndez 07/21/2019 1: 21 AM TITLE INVESTIGATOR documented as of this encounter Plan of [...] Vitamin B1 (01/26/2013 9:00 AM CDT) Pathologist [facility] Whole Bld Vitamin B1 166 70 - 180 nmol/L Comment: INTERPRETIVE INFORMATION: Vitamin B1, Whole Blood ?? The concentration of thiamine diphosphate (TDP), the ?? primary active form of vitamin B1, is measured in this ?? assay. Approximately 90% of vitamin B1 present in whole ?? blood is TDP. Thiamine and thiamine monophosphate, which ?? comprise the remaining 10%, are not measured. ?? Test developed and characteristics determined by [facility]. See Compliance Statement B: [facility]/CS ?? Performed by [facility], ?? [address] [place] [id number] ?? [email or web address], Prem Cabrera MD, Lab. Director ?? 01/26/2013 9:00 AM CDT 01/26/2013 9:21 AM CDT us Jeet Hanley MD LAB BLOOD ORDERABLES Final Resul t [facility] HISTORICAL RESULTS * Vitamin B6 (01/26/2013 9:00 AM CDT) [facility] Vitamin B6 37.1 20.0 - 125.0 nmol/L Comment: INTERPRETIVE INFORMATION: Vitamin B6 (Pyridoxal 5-Phosphate) ?? Pyridoxal 5'-phosphate measured in a specimen collected ?? following an 8-hour or overnight fast accurately indicates ?? vitamin B6 nutritional status. Non-fasting specimen ?? concentration reflects recent vitamin intake. ?? Test developed and characteristics determined by [facility]. See Compliance Statement B: [facility]/ ?? Performed by [facility], ?? [address] [facility] [place] [address] ?? [email or web address], Prem Cabrera MD, Lab. Director ?? 01/26/2013 9:00 AM CDT 01/26/2013 9:21 AM CDT us Jeet Hanley MD LAB BLOOD ORDERABLES Final Resul t [facility] HISTORICAL RESULTS * (ABNORMAL) CBC with auto differential (01/26/2013 9:00 AM CDT) WBC 8.2 4.6 - 10.2 x10 3/ul 01/26/2013 9:27 AM CDT [facility] HISTORICAL RESULTS RBC 4.63 4.11 - 5.71 x10 6/ul 01/26/2013 9:27 AM CDT [facility] HISTORICAL RESULTS Hemoglobin 14.7 13.0 - 17.0 g/dl 01/26/2013 9:27 AM CDT [facility] HISTORICAL RESULTS Hct 41.8 38.2 - 48.5 % 01/26/2013 9:27 AM T [facility] HISTORICAL RESULTS MCV 90.3 80.0 - 97.0 fl 01/26/2013 9:27 AM T [facility] HISTORICAL RESULTS MCH 31.7(H) 27.0 - 31.2 pg 01/26/2013 9:27 AM CDT [facility] HISTORICAL RESULTS MCHC 35.2 31.8 - 35.4 g/dl 01/26/2013 9:27 AM CDT [facility] HISTORICAL RESULTS RDW 12.4 11.6 - 14.8 % 01/26/2013 9:27 AM CDT [facility] HISTORICAL RESULTS Plt Count 263 124 - 400 x10 3/ul 01/26/2013 9:27 AM T [facility] HISTORICAL RESULTS MPV 8.7 7.4 - 10.4 fl Differential Method AUTOMATED DIFF --------- -- Neut % 51.4 37.0 - 85.0 % Immature Gran % 0.1 0.0 - 3.0 % Lymph % 38.0 5.0 - 45.0 % Beckham % 6.8 3.0 - 15.0 % Eos [...] ORDERABLES Final Resul t Performing Organization Address [facility] Phone Number [facility] HISTORICAL RESULTS * T3, free (01/26/2013 9:00 AM CDT) Free T3 5.22 3.10 - 6.80 pmol/L 01/26/2013 9:00 AM CDT 01/26/2013 9:21 AM CDT us Jeet Hanley MD LAB BLOOD ORDERABLES Final Resul t Performing Organization Address [facility] Number [facility] HISTORICAL RESULTS * T4, free (01/26/2013 9:00 AM CDT) Free T4 1.21 0.93 - 1.70 ng/dL 01/26/2013 9:00 AM CDT 01/26/2013 9:21 AM CDT us Jeet Hanley MD LAB BLOOD ORDERABLES Final Resul t Performing Organization Address [facility] de Phone Number [facility] HISTORICAL RESULTS * TSH (01/26/2013 9:00 AM CDT) TSH 2.75 0.27 - 4.20 uIU/mL 01/26/2013 9:00 AM CDT 01/26/2013 9:21 AM CDT us Jeet Hanley MD LAB BLOOD ORDERABLES Final Resul t Performing Organization Address [facility] de Phone Number [facility] HISTORICAL RESULTS * (ABNORMAL) Testosterone, jessica&tot, male>=14y (01/26/2013 9:00 AM CDT) Testosterone Level 167(L) 249 - 836 ng/dL Sex Hormone Bind Glob 16 16 - 56 nmol/L Free Testosterone Indx 36.2 35.0 - 92.6 % 01/26/2013 9:00 AM CDT 01/26/2013 9:21 AM CDT us Jeet Hanley MD LAB BLOOD ORDERABLES Final Resul t [facility] HISTORICAL RESULTS * (ABNORMAL) Comprehensive metabolic panel [...] 1.7 1.1 - 1.8 01/26/2013 9:51 AM [facility] HISTORICAL RESULTS Total Bilirubin 0.1 0.0 - 1.2 mg/dL 01/26/2013 9:51 AM [facility] HISTORICAL RESULTS AST 15 0 - 38 U/L 01/26/2013 9:51 AM [facility] HISTORICAL RESULTS ALT 17 0 - 41 U/L 01/26/2013 9:51 AM [facility] HISTORICAL RESULTS Alkaline Phosphatase 115 40 - 129 U/L 01/26/2013 9:51 AM [facility] HISTORICAL RESULTS 01/26/2013 9:00 AM CDT 01/26/2013 9:21 AM CDT us Jeet Hanley MD LAB BLOOD ORDERABLES Final Resul t Performing Organization Address [facility]/ZIP Co de Phone Number [facility] HISTORICAL RESULTS * Microalbumin, urine, random (01/26/2013 8:47 AM CDT) Ur Random Creatinine 36.0 mg/dL 01/26/2013 10:46 AM CDT [facility] HISTORICAL RESULTS Comment: Reference Range First morning urine: Males 39 - 259 mg/dLRandom Specimen: ??No reference ranges U Random Total Protein 4 0 - 12 mg/dL 01/26/2013 10:46 AM CDT [facility] HISTORICAL RESULTS Ur Random Microalbumin < 12.0 0.0 - 19.9 mg/L 01/26/2013 10:57 AM T [facility] HISTORICAL RESULTS Comment: Microalbumin is <12. Microalb/creat will not be calculated Citizen Of [place] Diabetes Association Guidelines Microalbuminuria: 30-300 ug albumin /mg creatinine Clinical Albuminuria: >300 ug albumin /mg creatinine 01/26/2013 8:47 AM CDT 01/26/2013 9:45 AM CDT Narrative [facility] HISTORICAL RESULTS - 01/26/2013 10:57 AM CDT us Jeet Hanley MD LAB URINE ORDERABLES Final Resul t Performing Organization Address City/[facility]/ZIP Co de Phone Number [facility] HISTORICAL RESULTS documented in this encounter Visit Diagnoses Diagnosis Other malaise and fatigue Benign essential hypertension Essential hypertension, benign Obesity Obesity, unspecified documented in this encounter
--- OUTSIDE RECORDS SUMMARY | 2024-06-18 20:26 | XMS_ITS | Encounter Summary ---
Author Organization [facility] Healthcare Address [address] [place] [address] Care Team Providers Care Paralegal Supervisor Name Role Phone Unavailable Primary Care Provider Unavailabl e Encounter Details Date Type Department Care Team (Latest Contact Info) Description 12/17/2012 9:00 AM CDT Hospital Encounter [facility] Rashaad Gutierrez MD [address] [facility] [address] [address] Syncope and collapse Social History Tobacco Use Types Packs/Day Years Used Date Smoking Tobacco: Never Assessed Sex and Gender Information Value Date Recorded Sex Assigned at Not on file Legal Sex Male 6:48 PM APRON MAN Gender Identity Male 07/21/2019 1:21 AM APRON MAN Sexual Orientation Meléndez 07/21/2019 1: 21 AM APRON MAN documented as of this encounter Plan of [...] states. LB/MG TD: ??12/18/2012 07:19:07 Job #: ??[id number] Rosita Boogie MD [EOD] Narrative 01/13/2013 10:18 [...] and drowsy states. LB/MG TD: 12/18/2012 07:19:07 /[id number] Rosita Boogie MD [EOD] us Rashaad Marin MD NEUROLOGY ORDERABLES Final Result documented in this encounter Visit Diagnoses Diagnosis Syncope and collapse documented in this encounter
--- OUTSIDE RECORDS SUMMARY | 2024-06-18 20:26 | XMS_ITS | Encounter Summary ---
Author Organization [facility] Medical Group Address [address] [place] [address] Care Team Providers Care Rotary Drum Dyer Name Role Phone Dorothea Cisneros Primary Care Provider + Reason for Visit * Reason Comments Wrist Pain right Ankle Pain right Encounter Details Date Type Department Care Team (Late st Contact Info) Description 10/26/2020 11:15 AM CDT Office Visit [facility] Family Medicine [address] [place] [phone] Dorothea Cisneros PA [address] [place] [phone] Right wrist pain (Primary Dx); Acute right [...] on file Legal Sex Male 6:48 PM CINDER PITMAN Gender Identity Male 07/21/2019 1:21 AM CINDER PITMAN Sexual Orientation Meléndez 07/21/2019 1: 21 AM CINDER PITMAN documented as of this encounter Last Filed [...] His ankle hurts if it twitches . [facility]. Has [facility] [...] 11/15/2023 added in this encounter Care Teams Rotary Drum Dyer Relationship Specialty Start Date End Date Dorothea Cisneros PA [facility] [facility] [place] [place] [address] PCP - General 08/11/19 documented as of this encounter
--- OUTSIDE RECORDS SUMMARY | 2024-06-18 20:26 | XMS_ITS | Encounter Summary ---
Author Organization [facility] Medical [facility] Address [address] [place] [address] Care Team Providers Care Welding Lead Burner Name Role Phone Dorothea Cisneros Primary Care Provider + Reason for Visit * Reason Comments Nasal Congestion sinus congestion per sists, no fever Encounter Details Date Type Department Care Team (Late st Contact Info) Description 07/08/2019 9:30 AM SCIENCE ANALYST Office Visit [facility] Family Medicine [address] [place] [address] Dorothea Cisneros PA [address] [place] [phone] Acute recurrent sinusitis, unspecified location (Primary Dx); [...] on file Legal Sex Male 6:48 PM SCIENCE ANALYST Gender Identity Male 07/21/2019 1:21 AM SCIENCE ANALYST Sexual Orientation Meléndez 07/21/2019 1: 21 AM SCIENCE ANALYST documented as of this encounter Last Filed Vital Signs Vital Sign Reading Time Taken Comments Blood Pressure 140/82 07/08/2019 9:37 AM SCIENCE ANALYST Pulse 95 07/08/2019 9:37 AM SCIENCE ANALYST Temperature 37 ??C (98.6 ??F) 07/08/2019 9:37 AM SCIENCE ANALYST Respiratory Rate 20 07/08/2019 9:37 AM SCIENCE ANALYST Oxygen Saturation 96% 07/08/2019 9:37 AM SCIENCE ANALYST Inhaled Oxygen Concentration - - Weight 127.5 kg (281 lb) 07/08/2019 9:37 AM SCIENCE ANALYST Height 167.6 cm (5' 6 ) 07/08/2019 9:37 AM SCIENCE ANALYST Body Mass Index 45.35 07/08/2019 9:37 AM SCIENCE ANALYST documented in this encounter Ordered Prescriptions Prescription [...] but due to insurance reasons it was nc'ed. The symptoms are the same and worse [...] male partner. Seeing a kira landaverde at [place]. Review of Systems Constitutional: Negative for fever. [...] can keep in touch. Dorothea Cisneros PA-C NCE ANALYST documented in this encounter Plan of Treatment [...] documented as of this encounter Care Teams Welding Lead Burner Relationship Specialty Start Date End Date Dorothea Cisneros PA [address] [place] [address] PCP - General 05/30/19 08/10/19 documented as of this encounter
--- OUTSIDE RECORDS SUMMARY | 2024-06-18 20:26 | XMS_ITS | Encounter Summary ---
Author Organization [facility] Medical Group Address [address] [facility] [address] [facility] [address] [place] [address] Care Team Providers Care Cocoa Press Operator Name Role Phone Dorothea Cisneros Primary Care Provider + Reason for Referral * Diagnostic Imaging (Routine) - Closed Specialty Diagnoses / Procedures Referred By Susana narayanan Referred To Contact Diagnoses Right foot pain Procedures XR Foot Right 3+ Vw [facility] [address] [place] [address] Phone: tel: fax: [facility] [address] [place] [phone] Referral ID Status Reason Start Date Expiration Date Visits Re quested Visits Authorized [id number] Closed 05/09/2021 06/08/2022 1 1 DUMPING EQUIPMENT OPERATOR Reason for Visit * Reason Comments nodue in left arm that has grown Foot Pain right Encounter Details Date Type Department Care Team (Late st Contact Info) Description 05/09/2021 11:15 AM COAL DUMPING EQUIPMENT OPERATOR Office Visit [facility] Family Medicine [address] [facility] [address] [place] [address] [facility] [address] [place] [address] Right foot pain (Primary Dx); [...] on file Legal Sex Male 6:48 PM COAL DUMPING EQUIPMENT OPERATOR Gender Identity Male 07/21/2019 1:21 AM COAL DUMPING EQUIPMENT OPERATOR Sexual Orientation Meléndez 07/21/2019 1: 21 AM COAL DUMPING EQUIPMENT OPERATOR documented as of this encounter Last Filed Vital Signs Vital Sign Reading Time Taken Comments Blood Pressure 122/84 05/09/2021 11:24 AM COAL DUMPING EQUIPMENT OPERATOR Pulse 76 05/09/2021 11:24 AM COAL DUMPING EQUIPMENT OPERATOR Temperature 36.1 ??C (97 ??F) 05/09/2021 11: 24 AM COAL DUMPING EQUIPMENT OPERATOR Respiratory Rate 18 05/09/2021 11:2 4 AM COAL DUMPING EQUIPMENT OPERATOR Oxygen Saturation 96% 05/09/2021 11: 24 AM COAL DUMPING EQUIPMENT OPERATOR Inhaled Oxygen Concentration - - Weight 130.7 kg (288 lb 3.2 oz) 021 11:24 AM COAL DUMPING EQUIPMENT OPERATOR Height 167.6 cm (5' 5.98 ) 05/09/2021 1 1:24 AM COAL DUMPING EQUIPMENT OPERATOR Body Mass Index 46.54 05/09/2021 11:24 AM COAL DUMPING EQUIPMENT OPERATOR documented in this encounter Progress Notes * Dorohtea Cisneros PA - 05/09/2021 11:15 AM CST [...] or fail to improve. Dorothea Cisneros PA-C DUMPING EQUIPMENT OPERATOR documented in this encounter Plan of Treatment Not on file documented as of this encounter Results * XR Foot Right 3+ Vw (05/16/2021 1:21 PM COAL DUMPING EQUIPMENT OPERATOR) Anatomical Region Laterality Modality Lower Extremities, Foot Right Computed Radiography 05/16/2021 4:32 PM COAL DUMPING EQUIPMENT OPERATOR Narrative 05/16/2021 4:33 PM COAL DUMPING EQUIPMENT OPERATOR EXAM DESCRIPTION: ?XR FOOT RIGHT 3 [...] PM T: ??05/16/2021 4:33 PM Report ID: [id number] Reading Location: ??[id number] Procedure Note Emory Whitney, DO - 05/16/2021 [...] Emory Whitney D.O. PS: PS Report ID: [id number] Reading Location: [id number] Dorothea Manzo IMG XR PROCEDURES Final Result [...] 10/24/2021 added in this encounter Care Teams Cocoa Press Operator Relationship Specialty Start Date End Date Dorothea Cisneros PA [address] [place] [address] PCP - General 08/11/19 documented as of this encounter
--- OUTSIDE RECORDS SUMMARY | 2024-06-18 20:26 | XMS_ITS | Encounter Summary ---
Author Organization [facility] Medical Group Address [address] [place] [address] Care Team Providers Care Supervisor Industrial Garment Name Role Phone Dorothea Cisneros Primary Care Provider + Dorothea Cisneros Primary Care Provider + Encounter Details Date Type Department Care Team (Late st Contact Info) Description 08/04/2019 Orders Only [facility] [address] [place] [address] Scanning, Provider Social History Tobacco Use Types Packs/Day Years Used Date Smoking Tobacco: Former Smokeless Tobacco: Never Alcohol Use Standard Drinks/Week Comments Not Currently 2 (1 standard drink = 0.6 oz pur e alcohol) PHQ-2 Answer Date Recorded PHQ-2 Score 6 07/23/2019 Sex and Gender Information Value Date Recorded Sex Assigned at Not on file Legal Sex Male 6:48 PM DOORPERSON OR LUGGAGE PORTER Gender Identity Male 07/21/2019 1:21 AM DOORPERSON OR LUGGAGE PORTER Sexual Orientation Meléndez 07/21/2019 1: 21 AM DOORPERSON OR LUGGAGE PORTER documented as of this encounter Plan of Treatment Not on file documented as of this encounter Procedures Procedure Name Priority Date/Time Associated Diagnosis Comments SCAN - RADIOLOGY/IMAGING 08/04/2019 documented in this encounter Results * SCAN - RADIOLOGY/IMAGING (08/04/2019) Anatomical Region Laterality Modality Other us Provider Scanning Final Result documented in this encounter Visit Diagnoses Not on filedocumented in this encounter Care Teams Supervisor Industrial Garment Relationship Specialty Start Date End Date Dorothea Cisneros PA [address] [place] [address] PCP - General 08/11/19 Dorothea Cisneros PA [address] [place] [address] PCP - General 05/30/19 08/10/19 documented as of this encounter
--- OUTSIDE RECORDS SUMMARY | 2024-06-18 20:26 | XMS_ITS | Encounter Summary ---
Author Organization [facility] Medical Group Address [address] [facility] [place] [address] Care Team Providers Care Hose Maker Name Role Phone Dorothea Cisneros Primary Care Provider + Reason for Visit * Reason Comments Back Pain Encounter Details Date Type Department Care Team (Late st Contact Info) Description 08/24/2019 9:45 AM DESIGN MAINTENANCE ENGINEER Office Visit [facility] Family Medicine [address] [facility] [address] [place] [phone] [place] [address] [place] [address] Chronic right-sided low back pain without [...] on file Legal Sex Male 6:48 PM DESIGN MAINTENANCE ENGINEER Gender Identity Male 07/21/2019 1:21 AM DESIGN MAINTENANCE ENGINEER Sexual Orientation Meléndez 07/21/2019 1: 21 AM DESIGN MAINTENANCE ENGINEER documented as of this encounter Last Filed Vital Signs Vital Sign Reading Time Taken Comments Blood Pressure 122/80 08/24/2019 10:08 AM DESIGN MAINTENANCE ENGINEER Pulse 69 08/24/2019 10:08 AM DESIGN MAINTENANCE ENGINEER Temperature 36.9 ??C (98.4 ??F) 08/24/2019 10:[address] Respiratory Rate - - Oxygen Saturation 95% 08/24/2019 10:08 AM DESIGN MAINTENANCE ENGINEER Inhaled Oxygen Concentration - - Weight 125 kg (275 lb 9.6 oz) 08/24/2019 10:08 A M DESIGN MAINTENANCE ENGINEER Height 167.6 cm (5' 5.98 ) 08/24/2019 10:[address] Body Mass Index 44.51 08/24/2019 10:08 AM DESIGN MAINTENANCE ENGINEER documented in this encounter Progress Notes * [...] psychiatric issues. Seeing a psych nurse at [facility] and has upcoming appt with sleep medicine here. He would like to get some physical therapy at this point. Wants to avoid pain pills; takes ibuprofen at times, up to about 3 a day. Feels the psych meds are helping but still has a lot of anxiety. Denies suicidal ideations/plans. He feels the depression is not as bad actually and sees an social services specialist, a counselor and a nurse who will be adjusting his meds. Just started on lamictal and continues on buspar, librium, prozac. We stopped the Klonopin. Smokes marijuana at night and then eats a lot and then is finally able to sleep. Stated he was recently given the alpha rpua to assist w/ sleep and will be [...] or fail to improve. Dorothea Cisneros PA-C GN MAINTENANCE ENGINEER documented in this encounter Plan of [...] 11/09/2019 added in this encounter Care Teams Hose Maker Relationship Specialty Start Date End Date Dorothea Cisneros PA [address] [place] [id number] PCP - General 08/11/19 documented as of this encounter
--- OUTSIDE RECORDS SUMMARY | 2024-06-18 20:26 | XMS_ITS | Encounter Summary ---
Author Organization [facility] Address [address] [place] [address] Care Team Providers Care Welder Fitter Name Role Phone Unavailable Primary Care Provider Unavailabl e Encounter Details Date Type Department Care Team (Late st Contact Info) Description 06/30/2016 1:42 PM STRATIGRAPHY TEACHER - 06/30/2016 4:21 PM STRATIGRAPHY TEACHER Hospital Encounter [facility] Zackery Stinson, [address] [facility] [address] [place] [address] Low back pain; Tachycardia Social History Tobacco Use Types Packs/Day Years Used Date Smoking Tobacco: Never Assessed Sex and Gender Information Value Date Recorded Sex Assigned at Not on file Legal Sex Male 6:48 PM STRATIGRAPHY TEACHER Gender Identity Male 07/21/2019 1:21 AM STRATIGRAPHY TEACHER Sexual Orientation Meléndez 07/21/2019 1: 21 AM STRATIGRAPHY TEACHER documented as of this encounter Last Filed Vital Signs Vital Sign Reading Time Taken Comments Blood Pressure 127/86 06/30/2016 1:54 PM STRATIGRAPHY TEACHER Pulse 110 06/30/2016 1:54 PM STRATIGRAPHY TEACHER Temperature 36.8 ??C (98.2 ??F) 06/30/2016 1:54 PM CS T Respiratory Rate - - Oxygen Saturation 97% 06/30/2016 1:54 PM STRATIGRAPHY TEACHER Inhaled Oxygen Concentration - - Weight 120.6 kg (265 lb 14 oz) 06/30/2016 1:54 P M STRATIGRAPHY TEACHER Height 167.6 cm (5' 6 ) 06/30/2016 1:54 PM STRATIGRAPHY TEACHER Body Mass Index 42.91 06/30/2016 1:54 PM STRATIGRAPHY TEACHER documented in this encounter Plan of Treatment Not on file documented as of this encounter Visit Diagnoses Diagnosis Low back pain Lumbago Tachycardia Unspecified tachycardia documented in this encounter
--- OUTSIDE RECORDS SUMMARY | 2024-06-18 20:26 | XMS_ITS | Encounter Summary ---
Author Organization [facility] Address [address] [place] [address] Care Team Providers Care Cellophane Bag Machine Operator Name Role Phone Dorothea Cisneros Primary Care Provider + Encounter Details Date Type Department Care Team (Late st Contact Info) Description 03/29/2020 10:00 AM CDT - 03/29/2020 11:59 PM CDT Hospital Encounter [facility] Gaurav Schilling MD [address] [facility] [address] [address] Discharge Disposition: Discharge to home or self [...] on file Legal Sex Male 6:48 PM PROFESSOR OF MUSICOLOGY Gender Identity Male 07/21/2019 1:21 AM PROFESSOR OF MUSICOLOGY Sexual Orientation Meléndez 07/21/2019 1: 21 AM PROFESSOR OF MUSICOLOGY documented as of this encounter Last Filed [...] on filedocumented in this encounter Care Teams Cellophane Bag Machine Operator Relationship Specialty Start Date End Date Dorothea Cisneros PA [address] [facility] [address] [place] [address] [place] [id number] PCP - General 08/11/19 documented as of this encounter
--- OUTSIDE RECORDS SUMMARY | 2024-06-18 20:26 | XMS_ITS | Encounter Summary ---
Author Organization [facility] Facility Care Team Providers Care Anodizing Line Operator Name Role Phone Dorothea Cisneros Primary [...] on file Legal Sex Male 6:48 PM HVAC REFRIGERATION TECHNICIAN Gender Identity Male 07/21/2019 1:21 AM HVAC REFRIGERATION TECHNICIAN Sexual Orientation Meléndez 07/21/2019 1: 21 AM HVAC REFRIGERATION TECHNICIAN documented as of this encounter Plan of Treatment Not on file documented as of this encounter Visit Diagnoses Not on filedocumented in this encounter Care Teams Anodizing Line Operator Relationship Specialty Start Date End Date Dorothea Cisneros PA [address] [facility] [place] [address] PCP - General 05/30/19 08/10/19 documented as of this encounter
--- OUTSIDE RECORDS SUMMARY | 2024-06-18 20:26 | XMS_ITS | Encounter Summary ---
Author Organization [facility] Address [address] [facility] [address] [place] [address] Care Team Providers Care Bull Fiddle Player Name Role Phone Dorothea Cisneros Primary Care Provider + Reason for Visit * Reason Comments Establish Care Anxiety Encounter Details Date Type Department Care Team (Late st Contact Info) Description 06/04/2019 3:00 PM EXTRUDING PRESS ADJUSTER Office Visit [facility] Family Medicine [address] [facility] [address] [place] [id number] Dorothea Cisneros PA [address] [place] [id number] Anxiety (Primary Dx); Acute non-recurrent sinusitis, [...] on file Legal Sex Male 6:48 PM EXTRUDING PRESS ADJUSTER Gender Identity Male 07/21/2019 1:21 AM EXTRUDING PRESS ADJUSTER Sexual Orientation Meléndez 07/21/2019 1 :21 AM EXTRUDING PRESS ADJUSTER documented as of this encounter Last Filed Vital Signs Vital Sign Reading Time Taken Comments Blood Pressure 158/108 06/04/2019 3:12 PM EXTRUDING PRESS ADJUSTER Pulse 106 06/04/2019 3:12 PM EXTRUDING PRESS ADJUSTER Temperature 36.7 ??C (98.1 ??F) 06/04/2019 3:12 PM CS T Respiratory Rate 16 06/04/2019 3:12 PM EXTRUDING PRESS ADJUSTER Oxygen Saturation 97% 06/04/2019 3:12 PM EXTRUDING PRESS ADJUSTER Inhaled Oxygen Concentration - - Weight 123.9 kg (273 lb 3.2 oz) 06/04/2019 3:12 PM EXTRUDING PRESS ADJUSTER Height 167.6 cm (5' 6 ) 06/04/2019 3:12 PM EXTRUDING PRESS ADJUSTER Body Mass Index 44.1 06/04/2019 3:12 PM EXTRUDING PRESS ADJUSTER documented in this encounter Ordered Prescriptions Prescription [...] Pt presents for ER f/u. Went to [facility] on 05/30 for anxious, increased HR [...] call since no insurance. Dorothea Cisneros PA-C UDING PRESS ADJUSTER documented in this encounter Plan of Treatment [...] 06/19/2019 added in this encounter Care Teams Bull Fiddle Player Relationship Specialty Start Date End Date Dorothea Cisneros PA [address] [facility] [address] [place] [address] [place] [id number] PCP - General 11/30/19 2/10/20 documented as of this encounter
--- OUTSIDE RECORDS SUMMARY | 2024-06-18 20:26 | XMS_ITS | Encounter Summary ---
Author Organization [facility] Address [address] [place] [address] Care Team Providers Care Securities Trader Name Role Phone Dorothea Cisneros Primary Care Provider + Encounter Details Date Type Department Care Team (Late st Contact Info) Description 11/24/2020 12:25 PM CDT Hospital Encounter [facility] Dorothea Cisneros PA [address] [facility] [place] [address] Social History Tobacco Use Types Packs/Day Years Used Date Smoking Tobacco: Former Smokeless Tobacco: Never Alcohol Use Standard Drinks/Week Comments Not Currently 2 (1 standard drink = 0.6 oz pur e alcohol) PHQ-2 Answer Date Recorded PHQ-2 Score 6 07/23/2019 Sex and Gender Information Value Date Recorded Sex Assigned at Not on file Legal Sex Male 6:48 PM EXECUTIVE MEETING MANAGER Gender Identity Male 07/21/2019 1:21 AM EXECUTIVE MEETING MANAGER Sexual Orientation Meléndez 07/21/2019 1: 21 AM EXECUTIVE MEETING MANAGER documented as of this encounter Medications at [...] on filedocumented in this encounter Care Teams Securities Trader Relationship Specialty Start Date End Date Dorothea Cisneros PA [address] [facility] [address] [place] [address] [place] [phone] PCP - General 08/11/19 documented as of this encounter
--- OUTSIDE RECORDS SUMMARY | 2024-06-18 20:26 | XMS_ITS | Encounter Summary ---
Author Organization [facility] Healthcare Address [address] [place] [address] Care Team Providers Care Biomass Power Plant Manager Name Role Phone Dorothea Cisneros Primary Care Provider + Encounter Details Date Type Department Care Team (Late st Contact Info) Description 07/22/2019 2:38 AM EXPLORATION MANAGER - 07/22/2019 5:13 AM EXPLORATION MANAGER Hospital Encounter [facility] Emergency Department [address] [place] [address] Unknown, Charley Roman MD [facility] [facility] EM[place] [address] Discharge Disposition: Discharge to home [...] on file Legal Sex Male 6:48 PM EXPLORATION MANAGER Gender Identity Male 07/21/2019 1:21 AM EXPLORATION MANAGER Sexual Orientation Meléndez 07/21/2019 1: 21 AM EXPLORATION MANAGER documented as of this encounter Last Filed Vital Signs Vital Sign Reading Time Taken Comments Blood Pressure 141/86 07/22/2019 2:39 AM EXPLORATION MANAGER Pulse 77 07/22/2019 2:39 AM EXPLORATION MANAGER Temperature 36.9 ??C (98.5 ??F) 07/22/2019 2:39 AM CS T Respiratory Rate - - Oxygen Saturation 99% 07/22/2019 2:39 AM EXPLORATION MANAGER Inhaled Oxygen Concentration - - Weight 124.1 kg (273 lb 9.5 oz) 07/22/2019 2:39 AM EXPLORATION MANAGER Height 167.6 cm (5' 6 ) 07/22/2019 2:39 AM EXPLORATION MANAGER Body Mass Index 44.16 07/22/2019 2:39 AM EXPLORATION MANAGER documented in this encounter Medications at Time [...] on filedocumented in this encounter Care Teams Biomass Power Plant Manager Relationship Specialty Start Date End Date Dorothea Cisneros PA [address] [facility] [address] [place] [address] [place] [id number] PCP - General 05/30/19 08/10/19 documented as of this encounter
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
--- OUTSIDE RECORDS SUMMARY | 2024-06-18 20:26 | XMS_ITS | Encounter Summary ---
Author Organization [facility] Healthcare Address [address] [place] [address] Care Team Providers Care Margarine Maker Name Role Phone Dorothea Cisneros Primary Care Provider + Encounter Details Date Type Department Care Team (Late st Contact Info) Description 05/30/2019 8:23 AM AIRFRAME AND POWERPLANT MECHANIC - 05/30/2019 9:20 AM AIRFRAME AND POWERPLANT MECHANIC Hospital Encounter [facility] Emergency Department [address] [place] [address] Eli Brewer DO [address] [facility] [place] [address] Unknown, Notinfile Discharge Disposition: Discharge to home or self care Social History Tobacco Use Types Packs/Day Years Used Date Smoking Tobacco: Never Assessed Sex and Gender Information Value Date Recorded Sex Assigned at Not on file Legal Sex Male 6:48 PM AIRFRAME AND POWERPLANT MECHANIC Gender Identity Male 07/21/2019 1:21 AM AIRFRAME AND POWERPLANT MECHANIC Sexual Orientation Meléndez 07/21/2019 1: 21 AM AIRFRAME AND POWERPLANT MECHANIC documented as of this encounter Last Filed Vital Signs Vital Sign Reading Time Taken Comments Blood Pressure 125/89 05/30/2019 8:27 AM AIRFRAME AND POWERPLANT MECHANIC Pulse 86 05/30/2019 8:27 AM AIRFRAME AND POWERPLANT MECHANIC Temperature 36.7 ??C (98 ??F) 05/30/2019 8:27 AM AIRFRAME AND POWERPLANT MECHANIC Respiratory Rate - - Oxygen Saturation 97% 05/30/2019 8:27 AM AIRFRAME AND POWERPLANT MECHANIC Inhaled Oxygen Concentration - - Weight 127.9 kg (281 lb 15.5 oz) 05/30/2019 8:27 AM AIRFRAME AND POWERPLANT MECHANIC Height 167.6 cm (5' 6 ) 05/30/2019 8:27 AM AIRFRAME AND POWERPLANT MECHANIC Body Mass Index 45.51 05/30/2019 8:27 AM AIRFRAME AND POWERPLANT MECHANIC documented in this encounter Medications at Time [...] Diagnosis Comments ECG 12-LEAD 05/30/2019 9:15 AM AIRFRAME AND POWERPLANT MECHANIC documented in this encounter Results * ECG 12 lead (05/30/2019 9:15 AM AIRFRAME AND POWERPLANT MECHANIC) Ventricular Rate EKG/Min 86 BPM [facility] Atrial Rate 86 BPM [facility] AK-Interval (MSEC) 158 ms [facility] QRS-Interval (MSEC) 86 ms [facility] QT-Interval (MSEC) 356 ms [facility] QTc 426 ms [facility] P Roy 41 degrees [facility] R Roy 32 degrees [facility] T Roy 17 degrees [facility] Diagnosis Normal sinus rhythm Normal ECG No previous ECGs available [facility] 05/30/2019 9:15 AM AIRFRAME AND POWERPLANT MECHANIC 05/30/2019 6:07 PM AIRFRAME AND POWERPLANT MECHANIC Narrative Resulting Agency Comment [facility] us Eli Brewer DO ECG ORDERABLES Final Result [facility] documented in this encounter Visit Diagnoses Not on filedocumented in this encounter Care Teams Margarine Maker Relationship Specialty Start Date End Date Dorothea Cisneros PA [address] [facility] [address] [place] [address] [place] [id number] PCP - General 05/30/19 08/10/19 documented as of this encounter
== END 2024-06-14 10:45 | disposition home or self-care (01) ==
PROVIDERS: Emergency Provider Emergency Medicine
DX: M79.651 Pain in right thigh (principal)
CPT/HCPCS: 93971; 99284